=== PATIENT | male | born 1935 | race Caucasian/White ===

== ENCOUNTER 2017-09-23 20:15 | Emergency (ER) | payer MEDICARE ==
--- NOTE | 2017-09-23 22:54 | RAD ---
SINGLE VIEW OF THE CHEST: Comparison: None. History: Cough, generalized weakness. FINDINGS: Single view of the chest shows a cardiomediastinal silhouette that is upper limits of normal in size. Airspace opacity is seen along the right heart border which may represent a right middle lobe infilt rate. No pleural effusion is seen. Degenerative changes are seen in the spine and shoulders. IMPRESSION: Possible right middle lobe infiltrate. POS: [facility]
[2017-09-23 22:58] LABS: ALT (SGPT) 14 U/L (8-55); AST (SGOT) 15 U/L (5-34); Albumin 3.9 g/dL (3.4-4.8); Alkaline Phosphatase 96 U/L (40-150); Anion Gap 14 mmol/L (10-20); BUN (Urea Nitrogen) 13 mg/dL (8.4-25.7); Bilirubin, Total 0.9 mg/dL (0.2-1.2); Calc. Creatinine Clearance 0 mL/min (70-130); Carbon Dioxide 24 mmol/L (23-31); Chloride 101 mmol/L (98-107); Estimated GFR-MDRD Greater than 90; Globulin 2.9 g/dL (2.4-3.5); Glucose 120 mg/dL (83-110); Potassium 3.5 mmol/L (3.5-5.1); Protein, Total 6.8 g/dL (5.8-8.1); Sodium 135 mmol/L (136-145)
[2017-09-23 23:03] LABS: CKMB 0.3 ng/mL (0-6.6); Troponin I Less than 0.010 ng/mL (< 0.028)
[2017-09-23 23:07] LABS: Anisocytosis SLIGHT = 6-15 cells (100X) (0-5/hpf); Band 8 % (5-11); Eosinophils 3 % (0-10); Hemoglobin 11.4 g/dL (14.0-18.0); Lymphocytes 12 % (21-51); MDiff Complete? YES; Mean Corpuscular HGB CONC 32.4 g/dL (32.0-36.0); Mean Corpuscular Hemoglobin 27.2 pg (27.0-31.0); Mean Corpuscular Volume 83.9 fl (80.0-94.0); Mean Platelet Volume 11.6 fL (7.4-10.4); Monocytes 21 % (0-10); Neutrophil 56 % (42-75); Platelet Count 161 thou/uL (130-400); RBC Distribution Width 19.7 % (11.5-14.5); Red Blood Cell (RBC) Count 4.18 mill/uL (4.70-6.10); White Blood Cell (WBC) Count 5.2 thou/uL (4.8-10.8)
[2017-09-23 23:38] LABS: Bilirubin Negative (Negative); Blood, Urine Negative (Negative); Clarity CLEAR (Clear); Glucose, Urine (Dipstick) Negative (Negative); Leukocyte Negative (Negative); Nitrite Negative (Negative); Protein, Urine (Dipstick) Negative (Neg-Trace); Specific Gravity, Urine 1.018 (1.002-1.036); pH, Urine 5.5 (5.0-9.0)
--- NOTE | 2017-11-05 14:26 | EKG ---
Test Reason : Blood Pressure : / mmHG Vent. Rate : 086 BPM Atrial Rate : 089 BPM P-R Int : 000 ms QRS Dur : 080 ms QT Int : 374 ms P-R-T Axes : 000 174 198 degrees QTc Int : 447 ms Atrial fibrillation Left posterior fascicular block Inferior infarct , age undetermined Abnormal ECG Reconfirmed by LOTUS BARNES ([id number]), multimedia editor RADHA RIVERA ([id number]) on 11/05/2017 2:26:17 PM Referred By: Confirmed By:LOTUS BARNES
== END 2017-09-24 00:50 | disposition home or self-care (01) ==
LOC: ERS 20:15
DX: J18.9 Pneumonia, unspecified organism (principal); I48.91 Unspecified atrial fibrillation; E11.9 Type 2 diabetes mellitus without complications; I10 Essential (primary) hypertension; F32.9 Major depressive disorder, single episode, unspecified; Z79.899 Other long term (current) drug therapy; Z79.82 Long term (current) use of aspirin
CPT/HCPCS: 36415; 71045; 80053; 81003; 82553; 83880; 84484; 85025; 87040; 93005; 96360

== ENCOUNTER 2017-09-24 09:38 | Emergency (ER) | payer MEDICARE | END 2017-09-24 11:17 | disposition home or self-care (01) | LOC: ERS 09:38 | DX: M79.81 Nontraumatic hematoma of soft tissue (principal); I48.91 Unspecified atrial fibrillation; E11.9 Type 2 diabetes mellitus without complications; I10 Essential (primary) hypertension; F32.9 Major depressive disorder, single episode, unspecified; Z79.82 Long term (current) use of aspirin; Z79.899 Other long term (current) drug therapy | CPT/HCPCS: 99283 ==

== ENCOUNTER 2017-10-08 13:28 | Inpatient (IN) | payer MEDICARE ==
[2017-10-08] MEDS ORDERED: PHENYLEPHRINE-NS 100 MCG/ML 10 ML SYRINGE ONE (15:32)
[2017-10-08] MEDS ORDERED: Lidocaine 1% PF 5 ML VIAL ONE (15:32)
[2017-10-08] MEDS ORDERED: PROPOFOL 200 MG/20 ML VIAL ONE (15:32)
--- NOTE | 2017-10-08 15:49 | PDOC.EVN ---
Event Note - Event Note Event Note: pt is seen and examined in ER, order written and plan explained to pt, H & P will be dictated later for more details
[2017-10-08] MEDS ORDERED: Adacel (T-DAP) 0.5 ML VIAL ONE (16:36)
[2017-10-08] MEDS ORDERED: Neomycin-Polymyxin 1 ML AMP ONE (18:22)
[2017-10-08] MEDS ORDERED: Fentanyl 250 MCG/5 ML VIAL ONE (19:01)
[2017-10-08] MEDS ORDERED: Ondansetron HCl/PF 4 MG/2 ML Vial IVP PRN ×2 (20:15→20:55)
[2017-10-08] MEDS ORDERED: Promethazine HCl 25 MG/ML VIAL IM PRN (20:15)
[2017-10-08] MEDS ORDERED: Promethazine HCl 25 MG/ML VIAL SLOW IVP PRN (20:15)
[2017-10-08] MEDS ORDERED: hydrALAZINE 20 MG/ML VIAL SLOW IVP PRN (20:55)
[2017-10-08] MEDS ORDERED: Senokot 8.6 MG TAB PO PRN (20:55)
[2017-10-08] MEDS ORDERED: Temazepam 15 MG CAP PO PRN (20:55)
[2017-10-08] MEDS ORDERED: tiZANidine HCl 4 MG TAB PO PRN (20:55)
[2017-10-08] MEDS ORDERED: Mag-Al 1200 mg/1200 mg/30 ML UDCUP PO PRN (20:55)
[2017-10-08] MEDS ORDERED: Acetaminophen 325 MG TAB PO PRN (20:55)
[2017-10-08] MEDS ORDERED: Milk Of Magnesia 30 ML UDCUP PO PRN (20:55)
[2017-10-08] MEDS ORDERED: Eucerin (Mineral Oil/Petrolatum,White) 30 gm Jar TOP PRN (20:55)
[2017-10-08] MEDS ORDERED: Artificial Tears 18 DROP/0.9 ML EA EYE PRN (20:55)
[2017-10-08] MEDS ORDERED: Piperacillin/Tazobactam 3.375 GM in Sodium Chloride 0.9% 100 ML IVPB SCH (20:55)
[2017-10-08] MEDS ORDERED: Chloraseptic Spray 180 ml Bottle PO PRN (20:55)
[2017-10-08] MEDS ORDERED: Morphine 4 MG/ML VIAL SLOW IVP PRN (20:55)
[2017-10-08] MEDS ORDERED: Sodium Chloride 0.65% Nasal 44 ML BOT EA NARE PRN (20:55)
[2017-10-08] MEDS ORDERED: Loperamide HCl 2 MG CAP PO PRN (20:55)
[2017-10-08] MEDS ORDERED: Ondansetron ODT 4 MG TAB PO PRN (20:55)
[2017-10-08] MEDS ORDERED: Loratadine 10 MG TAB PO PRN (20:55)
[2017-10-08] MEDS ORDERED: Gabapentin 100 MG CAP PO SCH (21:00)
[2017-10-08] MEDS: Piperacillin/Tazobactam 3.375 GM in Sodium Chloride 0.9% 100 ML IVPB SCH ×2 (21:41→23:36)
--- NOTE | 2017-10-08 21:41 | RAD ---
LEFT HAND TWO INTRAOPERATIVE IMAGES: 10/08/2017 HISTORY: I and D. COMPARISON: None. FINDINGS: Limited assessment of the hand demonstrates diffuse soft tissue swelling of the second digit. There is prominent multilevel degenerative change, including the second, third, and fourth proximal interph alangeal joints, as well as the third distal interphalangeal joint. There is an old fracture involvi ng the fifth metacarpal. IMPRESSION: Diffuse soft tissue swelling of the index finger. POS: [facility]
[2017-10-08] MEDS: HYDROcodone/Acetaminophen 10/325 mg Tablet PO PRN (21:53)
--- NOTE | 2017-10-08 22:18 | HP ---
PRIMARY CARE PHYSICIAN: Dr. Liv Castellano. REASON FOR ADMISSION: Left hand cellulitis/abscess. HISTORY OF PRESENT ILLNESS: An 82-year-old male who came to emergency room with complaint of increasing left hand swelling and tenderness. The patient had a dog bite on Sunday, about 3 days ago. The patient reports that dog bite, after that he was having increasing left hand swelling and tenderness. The patient initially went to [facility]. Over there, he was given vancomycin and Zosyn. Subsequently, the patient was transferred to our hospital. First time he went on Sunday to [facility]. The patient reported that the dog bite was his own dog and he was with up to date in immunization. After dog bite, he had bleeding, but bleeding was stopped. First time when he went to emergency room on 10/05/2017 on Sunday, the patient had local wound care and the patient was discharged from emergency room, but after that over a couple of days, the patient had increasing swelling, tenderness, and that is why he decided to come to emergency room for evaluation. After being treated with vancomycin and Zosyn at [facility], the patient was transferred to our hospital and subsequently the patient is being admitted to Medicine Service. The patient denies any chest pain, palpitation, shortness of breath. He denies any fever or chills. He denies any UTI symptoms. He denies any constipation, diarrhea. He denies any muscle spasm. The patient also reports that he is up to date in his tetanus vaccination. The patient has leukemia and he is getting monthly chemotherapy, last chemotherapy was on 09/22/2017. On 10/05/2017, the patient was given Augmentin, but the patient did not have any improvement and as patient is immunocompromised from chemotherapy, his primary care physician requested transfer to our hospital for higher level of care. REVIEW OF SYSTEMS: The following complete review of systems was negative, unless otherwise mentioned in the HPI or below: Constitutional: Weight loss or gain, ability to conduct usual activities. Skin: Rash, itching. Eyes: Double vision, pain. ENT/Mouth: Nose bleeding, neck stiffness, pain, tenderness. Cardiovascular: Palpitations, dyspnea on exertion, orthopnea. Respiratory: Shortness of breath, wheezing, cough, hemoptysis, fever or night sweats. Gastrointestinal: Poor appetite, abdominal pain, heartburn, nausea, vomiting, constipation, or diarrhea. Genitourinary: Urgency, frequency, dysuria, nocturia. Musculoskeletal: Pain, swelling. Neurologic/Psychiatric: Anxiety, depression. Allergy/Immunologic: Skin rash, bleeding tendency. Please see my HPI for pertinent positive and negative. All other review of system reviewed and negative except as mentioned in the HPI. PAST MEDICAL HISTORY: Paroxysmal atrial fibrillation; diabetes, type 2; leukemia, on chemotherapy; hypertension; benign enlargement of prostate; gastroesophageal reflux disease; peripheral neuropathy; insomnia; chronic diastolic heart failure. 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 PAST PSYCHIATRIC HISTORY: Anxiety and depression. SOCIAL HISTORY: The patient lives at home by himself. No history of tobacco, alcohol or illicit drug abuse. He is . He lives with his daughter. FAMILY HISTORY: No strong family history of premature coronary artery disease, stroke or cancer. ALLERGY: No known drug allergy. CURRENT HOME MEDICATION: Patient does not have medication with him so unable to review but when he will bring at that time will review, See [facility] EMERGENCY ROOM COURSE: The patient was given vancomycin and Zosyn at [facility] and the patient is given tetanus toxoid in our emergency room. PHYSICAL EXAMINATION: VITAL SIGNS: On arrival, blood pressure 116/59, pulse 87, respiratory rate 17, temperature 98.3, saturation 93% on room air, weight 80.7 kilograms. GENERAL: The patient is currently alert, awake, no obvious acute distress. HEAD: Normocephalic, atraumatic. EYES: Pupils are round, reactive to light. Extraocular muscle intact. ENT: Oropharynx within normal limits. Moist mucous membranes. No oral lesion , no pharyngeal erythema, no exudate. NECK: Supple, no JVD, no thyromegaly, no carotid bruit, no jugular venous distention. LUNGS: Clear to auscultation without any rhonchi or rales. CARDIAC: S1, S2 regular. No murmur, no gallop, no rub. ABDOMEN: Soft, bowel sounds present, nontender, nondistended. No organomegaly , no mass, no suprapubic tenderness. BACK: Unremarkable, no CVA tenderness. EXTREMITIES: Upper extremity: The patient does have left hand swollen, especially first, second, and third digit with the diffuse swelling over index finger. Purulent drainage was also noted. Range of motion of the finger joints is restricted because of swelling and pain. Right upper extremity within normal limits. Lower extremity: No edema. Good peripheral pulsation. SKIN: No skin rash. HEMATOLOGICAL SYSTEM: No lymphadenopathy. PSYCHIATRIC: Normal affect. NEUROLOGIC: The patient is alert, oriented x3. Cranial nerves II-XII intact. Motor and sensation within normal limits. No focal neurological deficit noted. SIGNIFICANT LABORATORY DATA: CBC: WBC 3.4, hemoglobin 11.1, platelets 66. ESR 21. BMP: Sodium 134, potassium 4.1, chloride 98, carbon dioxide 26, BUN 11 , creatinine 0.79, glucose 102, calcium 9.4. ASSESSMENT AND PLAN: IMPRESSION: 1. Left hand cellulitis with abscess, failure of outpatient therapy. This patient has worsening of swelling, erythema, despite oral antibiotic therapy given on 10/05/2017. The patient is immunocompromised from chemotherapy as well as he has pancytopenia from chemotherapy and he has leukemia. This patient is at risk for worst outcome. At this point, the patient is given tetanus toxoid in our emergency room. The patient was treated with vancomycin and Zosyn at other emergency room. The patient will be admitted in hospital for IV antibiotic therapy. Orthopedic physician will be consulted for possible incision and drainage. We will continue with vancomycin and Zosyn and we will control his pain with morphine and Axis on a p.r.n. basis. We will monitor clinical response. 2. Paroxysmal atrial fibrillation. We will continue Cardizem CD 120 mg p.o. daily. The patient is not a good candidate for chronic anticoagulation given thrombocytopenia. Currently, rate is under control. 3. Chronic diastolic heart failure. The patient is currently euvolemic. We will continue Lasix 40 mg p.o. daily. 4. Benign enlargement of prostate. We will continue Flomax 0.4 mg p.o. daily. 5. Gastroesophageal reflux disease. We will continue Protonix 40 mg p.o. daily. 6. Peripheral neuropathy. We will continue gabapentin 300 mg p.o. daily. 7. Insomnia. Continue Restoril 30 mg p.o. at bedtime. 8. Chronic low back pain. Continue Zanaflex 4 mg p.o. q.12 hourly p.r.n. 9. Pancytopenia, likely due to chemotherapy. We will monitor CBC and we will avoid anticoagulant because of low platelet count. 10. Gastrointestinal prophylaxis. Protonix 40 mg p.o. daily. 11. Code status: The patient is FULL CODE. The patient's daughter is surrogate decision maker. Disposition plan based on clinical course. We are expecting patient's stay in hospital more than 2 midnights. Plan of care discussed with the patient in detail. We will follow up on culture result and continue antibiotic therapy and the patient may need wound care. RONALDO
[2017-10-08 23:25] VITALS: BMI 33.8
[2017-10-09] MEDS: Piperacillin/Tazobactam 3.375 GM in Sodium Chloride 0.9% 100 ML IVPB SCH ×4 (05:17→23:49)
[2017-10-09 06:06] LABS: ALT (SGPT) 8 U/L (8-55); AST (SGOT) 8 U/L (5-34); Albumin 3.2 g/dL (3.4-4.8); Alkaline Phosphatase 65 U/L (40-150); Anion Gap 10 mmol/L (10-20); BUN (Urea Nitrogen) 12 mg/dL (8.4-25.7); Bilirubin, Total 0.8 mg/dL (0.2-1.2); Calc. Creatinine Clearance 87 mL/min (70-130); Calcium 8.4 mg/dL (7.8-10.44); Carbon Dioxide 25 mmol/L (23-31); Chloride 104 mmol/L (98-107); Estimated GFR-MDRD Greater than 90; Globulin 2.6 g/dL (2.4-3.5); Glucose 109 mg/dL (83-110); Potassium 3.5 mmol/L (3.5-5.1); Protein, Total 5.8 g/dL (5.8-8.1); Sodium 135 mmol/L (136-145)
[2017-10-09] MEDS ORDERED: Dextrose 50% Abboject 50 ML SYRINGE IVP PRN (06:06)
[2017-10-09] MEDS ORDERED: Dextrose 5% in Water 1,000 ML IV PRN (06:06)
[2017-10-09] MEDS ORDERED: traMADol HCl 50 MG TAB PO SCH (06:15)
[2017-10-09] MEDS: Vancomycin HCl 1.25 GM in Sodium Chloride 0.9% 250 ML 250 ML IVPB SCH (06:17)
[2017-10-09 06:29] LABS: Anisocytosis SLIGHT = 6-15 cells (100X) (0-5/hpf); Band 4 % (5-11); Elliptocytes SLIGHT = 2-5 cells (100X) (0-1/hpf); Eosinophils 1 % (0-10); Hemoglobin 9.1 g/dL (14.0-18.0); Lymphocytes 29 % (21-51); MDiff Complete? YES; Mean Corpuscular HGB CONC 32.1 g/dL (32.0-36.0); Mean Corpuscular Hemoglobin 27.4 pg (27.0-31.0); Mean Corpuscular Volume 85.6 fl (80.0-94.0); Mean Platelet Volume 9.4 fL (7.4-10.4); Monocytes 24 % (0-10); Neutrophil 42 % (42-75); Ovalocytes SLIGHT = 2-5 cells (100X) (0-1/hpf); PLT Morphology Comment Appears Decreased; Platelet Count 52 thou/uL (130-400); RBC Distribution Width 21.4 % (11.5-14.5); Red Blood Cell (RBC) Count 3.33 mill/uL (4.70-6.10); White Blood Cell (WBC) Count 2.3 thou/uL (4.8-10.8)
[2017-10-09] MEDS ORDERED: Furosemide 40 MG TAB PO SCH (07:30)
[2017-10-09] MEDS ORDERED: Triamterene/Hydrochlorothiazide 37.5 mg/25 mg Tablet PO SCH (09:00)
[2017-10-09] MEDS: Aspirin 325 MG TAB PO SCH (09:18)
[2017-10-09] MEDS: Tamsulosin HCl 0.4 MG CAP PO SCH (09:20)
[2017-10-09] MEDS: Gabapentin 300 MG CAP PO SCH (09:20)
[2017-10-09] MEDS: Saccharomyces boulardii 250 MG CAP PO SCH (09:20)
[2017-10-09] MEDS: Potassium Chloride 10 MEQ TAB PO SCH (09:21)
[2017-10-09] MEDS: HYDROcodone/Acetaminophen 10/325 mg Tablet PO PRN ×2 (09:23→17:49)
[2017-10-09] MEDS: Triamterene/Hydrochlorothiazide 37.5 mg/25 mg Tablet PO SCH (09:24)
[2017-10-09 09:37] LABS: Bilirubin Negative (Negative); Blood, Urine Negative (Negative); Clarity CLEAR (Clear); Glucose, Urine (Dipstick) Negative (Negative); Leukocyte Negative (Negative); Nitrite Negative (Negative); Protein, Urine (Dipstick) Trace mg/dL (Neg-Trace); Specific Gravity, Urine 1.022 (1.002-1.036); pH, Urine 5.5 (5.0-9.0)
[2017-10-09 09:39] LABS: Bacteria/HPF None Seen HPF (None Seen); Hyaline Casts/LPF 0-3 HYALINE CAST LPF (0-3 Hyaline); RBC/HPF 0-3 HPF (0-3); Squamous Epithelial None Seen HPF (0-3); WBC/HPF 0-3 HPF (0-3)
[2017-10-09] MEDS: Insulin Regular 300 UNITS/3 ML VIAL SC PRN ×2 (11:59→21:19)
--- NOTE | 2017-10-09 15:40 | OP ---
DATE OF PROCEDURE: 10/08/2017 PREOPERATIVE DIAGNOSIS: Left index finger and hand infection. POSTOPERATIVE DIAGNOSIS: Cellulitis of left hand. PROCEDURE: Incision and drainage with exploration of flexor sheath of left index finger. ANESTHESIA: General. SURGEON: Jacky Mendez M.D. TOURNIQUET TIME: Twenty minutes at 250 mmHg. ESTIMATED BLOOD LOSS: 5 Ml IMPLANTS: None. DRAINS: None. SPECIMENS: Swabbed superficial and at the flexor sheath sent for Gram stain culture and sensitivity. OUTCOME: Satisfactory. INDICATIONS: The patient is an 82-year-old gentleman who is status post dog bite injury to his left hand approximately 4 days prior to this admission. The patient was seen and evaluated in the emergen cy room in [place] and started on antibiotics. Unfortunately, over the last 24 hours, the patient h as had some increasing pain and swelling within the hand and as such is now presenting to our emergen cy room and Oconsultation requested. The patient denies recent fevers or chills. For full history o f present illness and past medical history please see the H&P. After discussion with patient including the risks and benefits, we decided to proceed with exploratio n due to the extensive swelling within the left index finger to ensure that we do not have the septic flexor tenosynovitis. Informed consent has been obtained. All questions answered. PROCEDURE IN DETAIL: After the induction of general anesthesia and a timeout performed before genera l anesthesia, the patient was positioned supine on the OR table with the left arm on a hand table. N ext, a sterile prep and drape was performed in the left upper extremity. The limb was elevated and t hen tourniquet inflated to 250 mmHg. The small traumatic wound over the dorsal aspect of the thenar web space was explored and slightly opened. No purulent material was found. Through this wound and there was not extensive erythema erythema really extended more into the index finger, both dorsally a nd to some degree along the palmar surface. As such, a mid sagittal incision was made overlying the area of maximal swelling which was at the proximal phalanx. After skin was sharply incised, dissecti on was carried down bluntly and then crossing over into the extensor side of the finger. There was f ound to be serous fluid, but no purulence and certainly no abscess cavity. This dissection was dami ed down to the palmar surface as well and again with no purulence. This wound was then thoroughly ir rigated with normal saline and closed with #4-0 nylon. Next to ensure that we did not have a septic flexor tenosynovitis. An incision was made along the palmar skin crease. aAfter skin was sharply inc ised, dissection Earried down bluntly to the underlying flexor sheath. A [place] blade was used to en ter the flexor sheath and then the flexor sheath and inspected, but purulence was to be just a normal appearance of synovial or tenosynovial fluid, but no purulence and nothing that really suggested inf ection. This wound was then irrigated with bulb syringe and closed with nylon as well. At this poin t, there was felt to be no obvious abscess found. The small traumatic wound dorsally was packed open . The two and surgical incisions had been closed and, then he was dressed with a Xeroform gauze and Onesimo wrap dressing. Tourniquet was let down at completion of dressing and patient was transferred to recovery room in stable condition. There were no complications.
--- NOTE | 2017-10-09 16:24 | EKG ---
Test Reason : Blood Pressure : / mmHG Vent. Rate : 084 BPM Atrial Rate : 340 BPM P-R Int : 000 ms QRS Dur : 074 ms QT Int : 372 ms P-R-T Axes : 000 017 006 degrees QTc Int : 439 ms Atrial fibrillation Abnormal ECG When compared with ECG of 23-SEP-2017 20:40, (Unconfirmed) Left posterior fascicular block is no longer Present T wave inversion no longer evident in Lateral leads Confirmed by DR. Afshan LUNA ([id number]) on 10/09/2017 4:24:39 PM Referred By: TC Confirmed By:DR. Afshan LUNA
[2017-10-09] MEDS: Temazepam 15 MG CAP PO PRN (20:36)
[2017-10-09] MEDS ORDERED: Metoprolol Tartrate 25 MG TAB PO SCH (21:15)
--- NOTE | 2017-10-09 22:23 | PDOC.PN ---
- Subjective Encounter Start Date: 10/09/17 Encounter Start Time: 17:30 Patient seen and examined for left hand cellulitis. No new complaints. No overnight events - Objective MAR Reviewed: Yes Vital Signs & Weight: Vital Signs (12 hours) Temp Pulse Resp BP Pulse Ox 10/09/17 20:45 98.1 F 98 102/66 10/09/17 20:00 99.0 F 108 H 19 99/55 L 92 L 10/09/17 15:41 97.9 F 93 16 107/72 93 L 10/09/17 11:14 98.1 F 87 16 109/73 91 L Weight Admit Weight 179 lb 3.2 oz Weight 179 lb I&O: 10/08/17 10/09/17 10/10/17 06:59 06:59 06:59 Intake Total 472 1260 Output Total 325 475 Balance 147 785 Result Diagrams: 10/10/17 04:42 10/10/17 04:42 Additional Labs: Accuchecks 10/09/17 10/09/17 10/09/17 20:53 15:47 11:12 POC Glucose 174 H 122 H 200 H 10/09/17 06:13 POC Glucose 204 H Radiology Reviewed by me: Yes (hand XR - No gas) Phys Exam - Physical Examination Constitutional: NAD Respiratory: no wheezing, no rhonchi Cardiovascular: RRR, no rub Gastrointestinal: soft, non-tender, positive bowel sounds Musculoskeletal: no edema left hand dressing + Neurological: moves all 4 limbs Dx/Plan - Plan DVT proph w/SCDs IMPRESSION: 1. Left hand cellulitis - improving 2. HTN 3. 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 Par Afib 5. Obesity BMI 33.8 / Other issues per H&P PLAN: * Cont Cardizem * Change ASA to 81 mg due to worsening thrombocytopenia * Cont Atbx as below * AM labs * Walking program Review of Systems - Review of Systems Respiratory: negative: Cough, Dry, Shortness of Breath, Hemoptysis, SOB with Excertion, Pleuritic Pain, Sputum, Wheezing Cardiovascular: negative: chest pain, palpitations, orthopnea, paroxysmal nocturnal dyspnea, edema, light headedness, other - Medications/Allergies Allergies/Adverse Reactions: Allergies Allergy/AdvReac Type Severity Reaction Status Date / Time No Known Drug Allergies Allergy Verified 10/09/17 07:57 Medications: Current Medications Acetaminophen (Tylenol) 650 mg PO Q4H PRN PRN Reason: Headache/Fever or Pain Hydrocodone Bitart/Acetaminophen ([place] 10/325) 1 tab PO Q4H PRN PRN Reason: Moderate Pain (4-6) Last Admin: 10/09/17 17:49 Dose: 1 tab Al Hydroxide/Mg Hydroxide (Maalox) 30 ml PO Q6H PRN PRN Reason: Heartburn or Indigestion Artificial Tears (Tears Naturale) 0 drop EA EYE PRN PRN PRN Reason: Dry Eyes Aspirin (Aspirin) 325 mg PO DAILY [facility] Last Admin: 10/09/17 09:18 Dose: 325 mg Dextrose/Water (Dextrose 50%) 25 gm IVP PRN PRN PRN Reason: HYPOGLYCEMIA PROTOCOL Diltiazem HCl (Cardizem Cd) 120 mg PO DAILY [facility] Last Admin: 10/09/17 09:24 Dose: Not Given Furosemide (Lasix) 40 mg PO DAILY-[facility] Gabapentin (Neurontin) 300 mg PO DAILY [facility] Last Admin: 10/09/17 09:20 Dose: 300 mg Glucagon (Glucagon) 1 mg IM PRN PRN PRN Reason: HYPOGLYCEMIA PROTOCOL Guaifenesin (Robitussin Sf) 200 mg PO Q4H PRN PRN Reason: Cough Hydralazine HCl (Apresoline) 10 mg SLOW IVP Q4H PRN PRN Reason: Systolic BP > 180 Piperacillin Sod/Tazobactam (Sod 3.375 gm/ Sodium Chloride) 100 mls @ 200 mls/ hr IVPB Q6HR [facility] Last Admin: 10/09/17 17:49 Dose: 100 mls Vancomycin HCl 1.25 gm/ Sodium (Chloride) 250 mls @ 166.667 mls/hr IVPB 0600 [facility] Last Admin: 10/09/17 06:17 Dose: 250 mls Dextrose/Water (D5w) 1,000 mls @ 0 mls/hr IV INF PRN; As Directed PRN Reason: HYPOGLYCEMIA PROTOCOL Insulin Human Regular (Humulin R) 0 units SC .MILD SLIDING PRN; Protocol PRN Reason: MILD SLIDING SCALE Last Admin: 10/09/17 21:19 Dose: 2 unit Loperamide HCl (Imodium) 2 mg PO PRN PRN PRN Reason: Diarrhea/Loose Stools Loratadine (Claritin) 10 mg PO DAILYPRN PRN PRN Reason: Sinus Symptoms Magnesium Hydroxide (Milk Of Magnesium) 30 ml PO DAILYPRN PRN PRN Reason: Constipation Metoprolol Succinate (Toprol Xl) 25 mg PO DAILY [facility] Last Admin: 10/09/17 09:24 Dose: Not Given Metoprolol Tartrate (Lopressor) 12.5 mg PO NOW [facility] Stop: 10/09/17 23:00 Last Admin: 10/09/17 21:18 Dose: 12.5 mg Mineral Oil/White Petrolatum (Eucerin Cream) 0 gm TOP BIDPRN PRN PRN Reason: Dry Skin Miscellaneous Medication (Pharmacy To Dose) 1 each IVPB ONE PRN PRN Reason: Pharmacy to dose Stop: 10/18/17 20:56 Morphine Sulfate (Morphine) 4 mg SLOW IVP Q4H PRN PRN Reason: Moderate to Severe Pain (4-10) Last Admin: 10/09/17 10:16 Dose: 4 mg Ondansetron HCl (Zofran Odt) 4 mg PO Q6H PRN PRN Reason: Nausea/Vomiting Ondansetron HCl (Zofran) 4 mg IVP Q6H PRN PRN Reason: Nausea/Vomiting Pantoprazole Sodium (Protonix) 40 mg PO DAILY [facility] Last Admin: 10/09/17 09:21 Dose: 40 mg Phenol (Chloraseptic [place] 180 Ml Bot) 0 ml PO PRN PRN PRN Reason: Sore Throat Potassium Chloride (Klor-Con 10) 10 meq PO QAM-[facility] Last Admin: 10/09/17 09:21 Dose: 10 meq Saccharomyces Boulardii (Florastor) 250 mg PO DAILY [facility] Last Admin: 10/09/17 09:20 Dose: 250 mg Senna (Senokot) 2 tab PO HSPRN PRN PRN Reason: Constipation Sodium Chloride ([place] Nasal [place] 0.65%) 0 ml EA NARE QIDPRN PRN PRN Reason: Nasal Congestion Tamsulosin HCl (Flomax) 0.4 mg PO DAILY [facility] Last Admin: 10/09/17 09:20 Dose: 0.4 mg Temazepam (Restoril) 15 mg PO HS PRN PRN Reason: Insomnia Last Admin: 10/09/17 20:36 Dose: 15 mg Tizanidine HCl (Zanaflex) 4 mg PO BID PRN PRN Reason: Muscle Spasm Triamterene/HCTZ (Maxzide-25) 1 tab PO DAILY [facility] Last Admin: 10/09/17 09:24 Dose: Not Given
[2017-10-10] MEDS: Piperacillin/Tazobactam 3.375 GM in Sodium Chloride 0.9% 100 ML IVPB SCH ×4 (05:05→23:38)
[2017-10-10 05:47] LABS: Vancomycin, Trough 6.1 ug/mL
[2017-10-10 05:56] LABS: ALT (SGPT) Less than 7 U/L (8-55); AST (SGOT) 10 U/L (5-34); Albumin 3.2 g/dL (3.4-4.8); Alkaline Phosphatase 70 U/L (40-150); Anion Gap 12 mmol/L (10-20); BUN (Urea Nitrogen) 8 mg/dL (8.4-25.7); Bilirubin, Total 1.2 mg/dL (0.2-1.2); Calc. Creatinine Clearance 95 mL/min (70-130); Calcium 8.4 mg/dL (7.8-10.44); Carbon Dioxide 23 mmol/L (23-31); Chloride 104 mmol/L (98-107); Estimated GFR-MDRD Greater than 90; Globulin 2.7 g/dL (2.4-3.5); Glucose 101 mg/dL (83-110); Magnesium 1.9 mg/dL (1.6-2.6); Potassium 3.7 mmol/L (3.5-5.1); Protein, Total 5.9 g/dL (5.8-8.1); Sodium 135 mmol/L (136-145)
[2017-10-10] MEDS: Vancomycin HCl 1.25 GM in Sodium Chloride 0.9% 250 ML 250 ML IVPB SCH (06:11)
[2017-10-10] MEDS ORDERED: Vancomycin HCl 1 GM in Premix Bag 1 BAG IVPB SCH (06:15)
[2017-10-10] MEDS: Furosemide 40 MG TAB PO SCH ×2 (06:51→08:13)
[2017-10-10 06:58] LABS: Band 4 % (5-11); Eosinophils 4 % (0-10); Hemoglobin 9.1 g/dL (14.0-18.0); Lymphocytes 25 % (21-51); MDiff Complete? YES; Mean Corpuscular HGB CONC 31.6 g/dL (32.0-36.0); Mean Corpuscular Hemoglobin 27.1 pg (27.0-31.0); Mean Corpuscular Volume 85.6 fl (80.0-94.0); Mean Platelet Volume 11.7 fL (7.4-10.4); Monocytes 28 % (0-10); Neutrophil 39 % (42-75); PLT Morphology Comment Appears Decreased; Platelet Count 47 thou/uL (130-400); RBC Distribution Width 21.6 % (11.5-14.5); Red Blood Cell (RBC) Count 3.36 mill/uL (4.70-6.10); White Blood Cell (WBC) Count 2.9 thou/uL (4.8-10.8)
[2017-10-10] MEDS ORDERED: Furosemide 40 MG TAB PO SCH (07:30)
[2017-10-10] MEDS: Potassium Chloride 10 MEQ TAB PO SCH (08:11)
[2017-10-10] MEDS: Tamsulosin HCl 0.4 MG CAP PO SCH (08:11)
[2017-10-10] MEDS: Aspirin 325 MG TAB PO SCH (08:11)
[2017-10-10] MEDS: Saccharomyces boulardii 250 MG CAP PO SCH (08:11)
[2017-10-10] MEDS: Gabapentin 300 MG CAP PO SCH ×2 (08:11→20:43)
[2017-10-10] MEDS: Triamterene/Hydrochlorothiazide 37.5 mg/25 mg Tablet PO SCH (08:12)
[2017-10-10] MEDS ORDERED: HYDROcodone/Acetaminophen 5/325 mg Tablet PO PRN (09:07)
[2017-10-10] MEDS: Vancomycin HCl 1 GM in Premix Bag 1 BAG IVPB SCH (17:21)
[2017-10-10] MEDS: Insulin Regular 300 UNITS/3 ML VIAL SC PRN (20:50)
--- NOTE | 2017-10-10 21:06 | PDOC.PN ---
- Subjective Encounter Start Date: 10/10/17 Encounter Start Time: 13:00 Patient seen and examined for left hand cellulitis. No new complaints. No overnight events - Objective MAR Reviewed: Yes Vital Signs & Weight: Vital Signs (12 hours) Temp Pulse Resp BP Pulse Ox 10/10/17 16:00 98.9 F 92 18 100/64 94 L 10/10/17 12:42 98.4 F 82 18 114/70 99 Weight Admit Weight 179 lb 3.2 oz Weight 179 lb I&O: 10/09/17 10/10/17 10/11/17 06:59 06:59 06:59 Intake Total 472 1710 1160 Output Total 325 475 925 Balance 147 1235 235 Result Diagrams: 10/11/17 05:03 10/11/17 05:03 Additional Labs: Accuchecks 10/10/17 10/10/17 10/10/17 16:07 11:05 05:55 POC Glucose 127 H 152 H 114 H 10/09/17 20:53 POC Glucose 174 H Phys Exam - Physical Examination Constitutional: NAD Respiratory: no wheezing, no rhonchi Cardiovascular: RRR, no rub Gastrointestinal: soft, non-tender, positive bowel sounds left hand dressing + Neurological: moves all 4 limbs Dx/Plan - Plan DVT proph w/SCDs IMPRESSION: 1. Left hand cellulitis 2. HTN 3. 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 Par Afib 5. Obesity BMI 33.8 / Other issues per H&P PLAN: * Cont current meds as below * Cont Atbx as below * AM labs * Walking program * Wound care Review of Systems - Review of Systems Respiratory: negative: Cough, Dry, Shortness of Breath, Hemoptysis, SOB with Excertion, Pleuritic Pain, Sputum, Wheezing Cardiovascular: negative: chest pain, palpitations, orthopnea, paroxysmal nocturnal dyspnea, edema, light headedness, other - Medications/Allergies Allergies/Adverse Reactions: Allergies Allergy/AdvReac Type Severity Reaction Status Date / Time No Known Drug Allergies Allergy Verified 10/09/17 07:57 Medications: Current Medications Acetaminophen (Tylenol) 650 mg PO Q4H PRN PRN Reason: Headache/Fever or Pain Hydrocodone Bitart/Acetaminophen ([place] 10/325) 1 tab PO Q4H PRN PRN Reason: Moderate Pain (4-6) Last Admin: 10/09/17 17:49 Dose: 1 tab Hydrocodone Bitart/Acetaminophen ([place] 5/325) 1 tab PO Q4H PRN PRN Reason: Moderate Pain (4-6) Al Hydroxide/Mg Hydroxide (Maalox) 30 ml PO Q6H PRN PRN Reason: Heartburn or Indigestion Artificial Tears (Tears Naturale) 0 drop EA EYE PRN PRN PRN Reason: Dry Eyes Aspirin (Ecotrin) 81 mg PO DAILY [facility] Dextrose/Water (Dextrose 50%) 25 gm IVP PRN PRN PRN Reason: HYPOGLYCEMIA PROTOCOL Diltiazem HCl (Cardizem Cd) 120 mg PO DAILY [facility] Last Admin: 10/10/17 08:12 Dose: 120 mg Furosemide (Lasix) 40 mg PO DAILY-[facility] Last Admin: 10/10/17 08:13 Dose: 40 mg Gabapentin (Neurontin) 300 mg PO HS [facility] Last Admin: 10/10/17 20:43 Dose: 300 mg Glucagon (Glucagon) 1 mg IM PRN PRN PRN Reason: HYPOGLYCEMIA PROTOCOL Guaifenesin (Robitussin Sf) 200 mg PO Q4H PRN PRN Reason: Cough Hydralazine HCl (Apresoline) 10 mg SLOW IVP Q4H PRN PRN Reason: Systolic BP > 180 Piperacillin Sod/Tazobactam (Sod 3.375 gm/ Sodium Chloride) 100 mls @ 200 mls/ hr IVPB Q6HR [facility] Last Admin: 10/10/17 17:20 Dose: 100 mls Dextrose/Water (D5w) 1,000 mls @ 0 mls/hr IV INF PRN; As Directed PRN Reason: HYPOGLYCEMIA PROTOCOL Vancomycin HCl 1 gm/ Device 200 mls @ 133.333 mls/hr IVPB 0600,1800 [facility] Last Admin: 10/10/17 17:21 Dose: 200 mls Insulin Human Regular (Humulin R) 0 units SC .MILD SLIDING PRN; Protocol PRN Reason: MILD SLIDING SCALE Last Admin: 10/10/17 20:50 Dose: 3 unit Loperamide HCl (Imodium) 2 mg PO PRN PRN PRN Reason: Diarrhea/Loose Stools Loratadine (Claritin) 10 mg PO DAILYPRN PRN PRN Reason: Sinus Symptoms Magnesium Hydroxide (Milk Of Magnesium) 30 ml PO DAILYPRN PRN PRN Reason: Constipation Last Admin: 10/10/17 05:38 Dose: 30 ml Metoprolol Succinate (Toprol Xl) 25 mg PO DAILY [facility] Last Admin: 10/10/17 08:13 Dose: 25 mg Mineral Oil/White Petrolatum (Eucerin Cream) 0 gm TOP BIDPRN PRN PRN Reason: Dry Skin Miscellaneous Medication (Pharmacy To Dose) 1 each IVPB ONE PRN PRN Reason: Pharmacy to dose Stop: 10/18/17 20:56 Ondansetron HCl (Zofran Odt) 4 mg PO Q6H PRN PRN Reason: Nausea/Vomiting Ondansetron HCl (Zofran) 4 mg IVP Q6H PRN PRN Reason: Nausea/Vomiting Pantoprazole Sodium (Protonix) 40 mg PO DAILY [facility] Last Admin: 10/10/17 08:11 Dose: 40 mg Phenol (Chloraseptic [place] 180 Ml Bot) 0 ml PO PRN PRN PRN Reason: Sore Throat Potassium Chloride (Klor-Con 10) 10 meq PO QAM-[facility] Last Admin: 10/10/17 08:11 Dose: 10 meq Saccharomyces Boulardii (Florastor) 250 mg PO DAILY [facility] Last Admin: 10/10/17 08:11 Dose: 250 mg Senna (Senokot) 2 tab PO HSPRN PRN PRN Reason: Constipation Sodium Chloride ([place] Nasal [place] 0.65%) 0 ml EA NARE QIDPRN PRN PRN Reason: Nasal Congestion Sodium Chloride (Flush - Normal Saline) 10 ml IVF Q12HR [facility] Last Admin: 10/10/17 20:44 Dose: 10 ml Sodium Chloride (Flush - Normal Saline) 10 ml IVF PRN PRN PRN Reason: Saline Flush Tamsulosin HCl (Flomax) 0.4 mg PO DAILY [facility] Last Admin: 10/10/17 08:11 Dose: 0.4 mg Temazepam (Restoril) 15 mg PO HS PRN PRN Reason: Insomnia Last Admin: 10/09/17 20:36 Dose: 15 mg Tizanidine HCl (Zanaflex) 4 mg PO BID PRN PRN Reason: Muscle Spasm Triamterene/HCTZ (Maxzide-25) 1 tab PO DAILY [facility] Last Admin: 10/10/17 08:12 Dose: 1 tab
[2017-10-10] MEDS: Temazepam 15 MG CAP PO PRN (22:24)
[2017-10-11] MEDS: Piperacillin/Tazobactam 3.375 GM in Sodium Chloride 0.9% 100 ML IVPB SCH ×3 (05:17→17:53)
[2017-10-11 05:35] LABS: Anion Gap 8 mmol/L (10-20); BUN (Urea Nitrogen) 10 mg/dL (8.4-25.7); Calc. Creatinine Clearance 96 mL/min (70-130); Calcium 8.4 mg/dL (7.8-10.44); Carbon Dioxide 30 mmol/L (23-31); Chloride 98 mmol/L (98-107); Estimated GFR-MDRD Greater than 90; Glucose 107 mg/dL (83-110); Potassium 3.2 mmol/L (3.5-5.1); Sodium 133 mmol/L (136-145)
[2017-10-11 05:50] LABS: Band 5 % (5-11); Eosinophils 3 % (0-10); Hemoglobin 8.7 g/dL (14.0-18.0); Lymphocytes 16 % (21-51); MDiff Complete? YES; Mean Corpuscular HGB CONC 32.1 g/dL (32.0-36.0); Mean Corpuscular Hemoglobin 27.1 pg (27.0-31.0); Mean Corpuscular Volume 84.4 fl (80.0-94.0); Mean Platelet Volume 7.9 fL (7.4-10.4); Metamyelocyte 3 % (0-0); Monocytes 15 % (0-10); Neutrophil 57 % (42-75); Nucleated RBC 1 % (0); PLT Morphology Comment Appears Decreased; Platelet Count 32 thou/uL (130-400); White Blood Cell (WBC) Count 3.3 thou/uL (4.8-10.8)
[2017-10-11] MEDS: Vancomycin HCl 1 GM in Premix Bag 1 BAG IVPB SCH ×2 (06:17→17:53)
[2017-10-11] MEDS: Furosemide 40 MG TAB PO SCH (06:42)
[2017-10-11] MEDS: Saccharomyces boulardii 250 MG CAP PO SCH (08:39)
[2017-10-11] MEDS: Triamterene/Hydrochlorothiazide 37.5 mg/25 mg Tablet PO SCH (08:39)
[2017-10-11] MEDS: Tamsulosin HCl 0.4 MG CAP PO SCH (08:39)
[2017-10-11] MEDS: Potassium Chloride 10 MEQ TAB PO SCH ×3 (08:39→16:36)
[2017-10-11] MEDS ORDERED: Aspirin 81 mg Enteric Coated Tablet PO SCH (09:00)
[2017-10-11] MEDS ORDERED: Polyethylene Glycol 3350 17 GM Packet PO PRN (11:08)
--- NOTE | 2017-10-11 14:00 | CON ---
DATE OF CONSULTATION: 10/11/2017 REASON FOR CONSULTATION: Dog bite. 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 The dog who bit him is his own dog, it is vaccinated. They decided to euthanized the dog anyways because of the behavioral problems with the animal and since then, the patient has developed worsening inflammatory changes. He was admitted, had I&D by Dr. Mendez, no evidence of tenosynovitis was identified. No evidence of bone involvement. He is currently on vancomycin and Zosyn, moderate pain, but no headaches, visual symptoms, sore throat, aphasia, dysphagia, no dyspnea, cough or sputum production or chest pain, no back pain. No abdominal pain, diarrhea, no genitourinary symptoms. 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 He has had recurrent episodes of epigastric abdominal pain for the past few weeks, and has not yet been worked up. Last colonoscopy 10 years ago was within normal limits. 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 SOCIAL HISTORY: Lives in [place], has nearby relatives. Never a smoker, no drug use. 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 . FAMILY HISTORY: Noncontributory. ALLERGIES: None. CURRENT MEDICATIONS: Zosyn, vancomycin, Tylenol, [place], Maalox, Ecotrin, Cardizem, Lasix, Neurontin, glucagon, Robitussin, Humulin R, Imodium, Claritin, Toprol-XL, Zofran, pantoprazole, vancomycin. PHYSICAL EXAMINATION: VITAL SIGNS: Temperature has been normal and the other vital signs are within normal limits. SKIN: Shows the wound area with a punctured area when he just came in, fresh blood at the base. A little maceration at the edges, right over the second MPJ skin site, left hand. There is another area, that is where the surgeon went in and did an exploration both in the medial aspect of the second finger left hand as well as the palmar aspect to explore the tendon. No lymphadenopathy. Alopecia noted. HEENT: Ocular movements conjugate. Oral cavity with no teeth. NECK: Supple, no jugular vein distention, no thyromegaly. LUNGS: With symmetric clear breath sounds. HEART: S1, S2, regular rate. No S3, S4. ABDOMEN: Soft, not distended or tender. No ascites. No bladder distention. EXTREMITIES: No joint inflammatory activity outside the involved area. He moves the extremities with limitations imposed by the left hand inflammatory process. NEUROLOGIC: Cognitive function appears to be intact. LABORATORY DATA: White cell count is 2.3, up to 3.3, hemoglobin 8.7, and platelets 32,000. Sodium 133, creatinine 0.67. Liver profile normal. CRP is 3.10, albumin 3.2. Urinalysis within normal limits. Microbiology with negative blood cultures x2 sets. There are samples from the hand and the Gram stain showed no organisms seen, thus far at 3 days, no growth in the cultures. In the second sample showed rare gram positive cocci in pairs. ASSESSMENT: History of some form of leukemia on chemotherapy as well as type 2 diabetes mellitus admitted after inflammatory process worsening following dog bite, gram positive cocci in pairs and evaluated in the Gram stain, but cultures thus far negative. Dog bites can be associated with P. multocida as well as the usual GNR and GPC organisms. He is currently on Zosyn and vancomycin. We will continue the current regimen. Waiting on final results of cultures. Eventually hopefully transition to oral antimicrobial therapy according to the results. If cultures remain negative, then we will have to devise a broader spectrum coverage, combination of minocycline with Augmentin could be a good choice in the absence of evidence to suggest a bone or joint or tendon involvement. Will have to continue monitoring BC results since + BC may change the regimen chosen. MTDD
--- NOTE | 2017-10-11 16:25 | PDOC.PN ---
- Subjective Encounter Start Date: 10/11/17 Encounter Start Time: 11:30 Patient seen and examined for cellulitis. No new complaints. Pain controlled. Had BM. No overnight events - Objective MAR Reviewed: Yes Vital Signs & Weight: Vital Signs (12 hours) Temp Pulse Resp BP Pulse Ox 10/11/17 11:22 98.2 F 80 18 105/68 96 10/11/17 08:00 98.1 F 88 20 118/70 95 10/11/17 06:42 107/73 Weight Admit Weight 179 lb 3.2 oz Weight 179 lb I&O: 10/10/17 10/11/17 10/12/17 06:59 06:59 06:59 Intake Total 1710 2180 Output Total 475 1825 Balance 1235 355 Result Diagrams: 10/11/17 05:03 10/11/17 05:03 Additional Labs: Accuchecks 10/11/17 10/11/17 10/10/17 11:04 05:35 20:51 POC Glucose 162 H 116 H 204 H Phys Exam - Physical Examination Constitutional: NAD Respiratory: no wheezing, no rhonchi Cardiovascular: RRR, no rub Gastrointestinal: soft, non-tender, positive bowel sounds Musculoskeletal: no edema Left hand dressing + Neurological: moves all 4 limbs Psychiatric: A&O x 3 Dx/Plan - Plan DVT proph w/SCDs IMPRESSION: 1. Left hand cellulitis due to Dog bite 2. HTN - BP on lower side 3. 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 Par Afib 5. Hypokalemia / Obesity BMI 33.8 / Other issues per H&P PLAN: * Hold Triamterene/HCTZ * Replace Potassium * Cont current meds as below * Cont Atbx as below * AM labs * Walking program * Wound care * Await ID input * Change ASA to every other day due to thrombocytopenia Review of Systems - Review of Systems Respiratory: negative: Cough, Dry, Shortness of Breath, Hemoptysis, SOB with Excertion, Pleuritic Pain, Sputum, Wheezing Cardiovascular: negative: chest pain, palpitations, orthopnea, paroxysmal nocturnal dyspnea, edema, light headedness, other Gastrointestinal: negative: Nausea, Vomiting, Abdominal Pain, Diarrhea, Constipation, Melena, Hematochezia, Other - Medications/Allergies Allergies/Adverse Reactions: Allergies Allergy/AdvReac Type Severity Reaction Status Date / Time No Known Drug Allergies Allergy Verified 10/09/17 07:57 Medications: Current Medications Acetaminophen (Tylenol) 650 mg PO Q4H PRN PRN Reason: Headache/Fever or Pain Hydrocodone Bitart/Acetaminophen ([place] 10/325) 1 tab PO Q4H PRN PRN Reason: Moderate Pain (4-6) Last Admin: 10/09/17 17:49 Dose: 1 tab Hydrocodone Bitart/Acetaminophen ([place] 5/325) 1 tab PO Q4H PRN PRN Reason: Moderate Pain (4-6) Al Hydroxide/Mg Hydroxide (Maalox) 30 ml PO Q6H PRN PRN Reason: Heartburn or Indigestion Artificial Tears (Tears Naturale) 0 drop EA EYE PRN PRN PRN Reason: Dry Eyes Aspirin (Ecotrin) 81 mg PO ASDIR [facility] Dextrose/Water (Dextrose 50%) 25 gm IVP PRN PRN PRN Reason: HYPOGLYCEMIA PROTOCOL Diltiazem HCl (Cardizem Cd) 120 mg PO DAILY [facility] Last Admin: 10/11/17 08:39 Dose: 120 mg Furosemide (Lasix) 40 mg PO DAILY-AC [facility] Last Admin: 10/11/17 06:42 Dose: Not Given Gabapentin (Neurontin) 300 mg PO [facility] Last Admin: 10/10/17 20:43 Dose: 300 mg Glucagon (Glucagon) 1 mg IM PRN PRN PRN Reason: HYPOGLYCEMIA PROTOCOL Guaifenesin (Robitussin Sf) 200 mg PO Q4H PRN PRN Reason: Cough Hydralazine HCl (Apresoline) 10 mg SLOW IVP Q4H PRN PRN Reason: Systolic BP > 180 Piperacillin Sod/Tazobactam (Sod 3.375 gm/ Sodium Chloride) 100 mls @ 200 mls/ hr IVPB Q6HR [facility] Last Admin: 10/11/17 12:00 Dose: 100 mls Dextrose/Water (D5w) 1,000 mls @ 0 mls/hr IV INF PRN; As Directed PRN Reason: HYPOGLYCEMIA PROTOCOL Vancomycin HCl 1 gm/ Device 200 mls @ 133.333 mls/hr IVPB 0600,1800 [facility] Last Admin: 10/11/17 06:17 Dose: 200 mls Insulin Human Regular (Humulin R) 0 units SC .MILD SLIDING PRN; Protocol PRN Reason: MILD SLIDING SCALE Last Admin: 10/10/17 20:50 Dose: 3 unit Loperamide HCl (Imodium) 2 mg PO PRN PRN PRN Reason: Diarrhea/Loose Stools Loratadine (Claritin) 10 mg PO DAILYPRN PRN PRN Reason: Sinus Symptoms Magnesium Hydroxide (Milk Of Magnesium) 30 ml PO DAILYPRN PRN PRN Reason: Constipation Last Admin: 10/10/17 05:38 Dose: 30 ml Metoprolol Succinate (Toprol Xl) 25 mg PO DAILY [facility] Last Admin: 10/11/17 08:40 Dose: 25 mg Mineral Oil/White Petrolatum (Eucerin Cream) 0 gm TOP BIDPRN PRN PRN Reason: Dry Skin Miscellaneous Medication (Pharmacy To Dose) 1 each IVPB ONE PRN PRN Reason: Pharmacy to dose Stop: 10/18/17 20:56 Ondansetron HCl (Zofran Odt) 4 mg PO Q6H PRN PRN Reason: Nausea/Vomiting Ondansetron HCl (Zofran) 4 mg IVP Q6H PRN PRN Reason: Nausea/Vomiting Pantoprazole Sodium (Protonix) 40 mg PO DAILY [facility] Last Admin: 10/11/17 08:39 Dose: 40 mg Phenol (Chloraseptic [place] 180 Ml Bot) 0 ml PO PRN PRN PRN Reason: Sore Throat Polyethylene Glycol (Miralax) 17 gm PO DAILY PRN PRN Reason: Constipation Potassium Chloride (Klor-[place] 10) 20 meq PO TID[facility] Stop: 10/11/17 23:59 Last Admin: 10/11/17 12:00 Dose: 20 meq Saccharomyces Boulardii (Florastor) 250 mg PO DAILY [facility] Last Admin: 10/11/17 08:39 Dose: 250 mg Senna (Senokot) 2 tab PO HSPRN PRN PRN Reason: Constipation Senna/Docusate Sodium (Senokot S) 1 tab PO BID [facility] Sodium Chloride ([place] Nasal [place] 0.65%) 0 ml EA NARE QIDPRN PRN PRN Reason: Nasal Congestion Sodium Chloride (Flush - Normal Saline) 10 ml IVF Q12HR [facility] Last Admin: 10/11/17 08:40 Dose: 10 ml Sodium Chloride (Flush - Normal Saline) 10 ml IVF PRN PRN PRN Reason: Saline Flush Tamsulosin HCl (Flomax) 0.4 mg PO DAILY [facility] Last Admin: 10/11/17 08:39 Dose: 0.4 mg Temazepam (Restoril) 15 mg PO HS PRN PRN Reason: Insomnia Last Admin: 10/10/17 22:24 Dose: 15 mg Tizanidine HCl (Zanaflex) 4 mg PO BID PRN PRN Reason: Muscle Spasm Triamterene/HCTZ (Maxzide-25) 1 tab PO DAILY [facility] Last Admin: 10/11/17 08:39 Dose: 1 tab
[2017-10-11] MEDS: Diabetic Tussin 200 MG/10 ML UDCUP PO PRN ×2 (16:36→20:18)
[2017-10-11 17:53] LABS: Vancomycin, Trough 12.8 ug/mL
[2017-10-11] MEDS: Senokot S 8.6-50 MG TAB PO SCH (20:18)
[2017-10-11] MEDS: Gabapentin 300 MG CAP PO SCH (20:19)
[2017-10-11] MEDS: Temazepam 15 MG CAP PO PRN (21:59)
[2017-10-12] MEDS: Piperacillin/Tazobactam 3.375 GM in Sodium Chloride 0.9% 100 ML IVPB SCH ×4 (00:53→17:37)
[2017-10-12] MEDS: Diabetic Tussin 200 MG/10 ML UDCUP PO PRN ×3 (01:18→15:12)
[2017-10-12 05:12] LABS: Anion Gap 8 mmol/L (10-20); BUN (Urea Nitrogen) 9 mg/dL (8.4-25.7); Calc. Creatinine Clearance 97 mL/min (70-130); Calcium 8.4 mg/dL (7.8-10.44); Carbon Dioxide 30 mmol/L (23-31); Chloride 100 mmol/L (98-107); Estimated GFR-MDRD Greater than 90; Glucose 108 mg/dL (83-110); Magnesium 1.9 mg/dL (1.6-2.6); Potassium 3.8 mmol/L (3.5-5.1); Sodium 134 mmol/L (136-145)
[2017-10-12 05:33] LABS: Anisocytosis MODERATE=16-30 cells (100X) (0-5/hpf); Band 1 % (5-11); Eosinophils 1 % (0-10); Hemoglobin 8.2 g/dL (14.0-18.0); Lymphocytes 20 % (21-51); MDiff Complete? YES; Mean Corpuscular Volume 84.3 fl (80.0-94.0); Mean Platelet Volume 6.9 fL (7.4-10.4); Monocytes 13 % (0-10); Neutrophil 62 % (42-75); PLT Morphology Comment Appears Decreased; Platelet Count 44 thou/uL (130-400); Polychromasia SLIGHT = 2-3 cells (100X) (0-2/hpf); RBC Distribution Width 20.8 % (11.5-14.5); Reactive Lymphocytes 3 % (0-10); Red Blood Cell (RBC) Count 3.04 mill/uL (4.70-6.10); White Blood Cell (WBC) Count 2.9 thou/uL (4.8-10.8)
[2017-10-12] MEDS: Vancomycin HCl 1.25 GM in Sodium Chloride 0.9% 250 ML 250 ML IVPB SCH ×2 (05:54→17:39)
[2017-10-12] MEDS: Furosemide 40 MG TAB PO SCH (08:41)
[2017-10-12] MEDS: Saccharomyces boulardii 250 MG CAP PO SCH (08:41)
[2017-10-12] MEDS: Senokot S 8.6-50 MG TAB PO SCH ×2 (08:42→22:11)
[2017-10-12] MEDS: Tamsulosin HCl 0.4 MG CAP PO SCH (08:42)
--- NOTE | 2017-10-12 16:13 | PRG ---
DATE OF SERVICE: 10/12/2017 SUBJECTIVE: Feeling about the same, not much pain or less pain in the left hand. No diarrhea. OBJECTIVE: VITAL SIGNS: Normal except for some slight hypotension. GENERAL: No distress, oriented, follows commands, pleasant. LUNGS: Clear. HEART: S1, S2, regular rate. ABDOMEN: Soft. EXTREMITIES: Left hand dressed. He has better movements in the left hand. LABORATORY DATA: His white cell count is 2.9, hemoglobin 8.2, platelets 44,000. Sodium 134, creatin ine 0.66. Microbiology thus far we still have negative cultures from the left hand. ASSESSMENT AND DISCUSSION: Some form of leukemia, possibly CLL on treatment, who now presents with d og bite and superficial infection. Cultures are pending. 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 Other possibilities also discussed before. Continue current regimen. The intention i s to eventually switch to a combination of Augmentin and Cipro if the cultures are negative. If they are positive, then adjust according to the pathogen identified.
[2017-10-12] MEDS: Benzonatate 100 MG CAP PO PRN (19:54)
--- NOTE | 2017-10-12 21:34 | PDOC.PN ---
- Subjective Encounter Start Date: 10/12/17 Encounter Start Time: 14:00 Patient seen and examined for cellulitis. Pain controlled. Chronic cough. No overnight events - Objective MAR Reviewed: Yes Vital Signs & Weight: Vital Signs (12 hours) Temp Pulse Resp BP Pulse Ox 10/12/17 20:14 98.4 F 86 16 10/12/17 19:55 98.4 F 86 16 116/84 96 10/12/17 15:18 98.1 F 74 18 101/63 99 10/12/17 11:20 98.1 F 80 18 95/59 L 99 Weight Admit Weight 179 lb 3.2 oz Weight 179 lb I&O: 10/11/17 10/12/17 10/13/17 06:59 06:59 06:59 Intake Total 2180 1100 960 Output Total 1825 950 700 Balance 355 150 260 Result Diagrams: 10/12/17 04:46 10/12/17 04:46 Additional Labs: Accuchecks 10/12/17 10/12/17 15:19 11:21 POC Glucose 136 H 152 H Phys Exam - Physical Examination Constitutional: NAD Respiratory: no wheezing, no rhonchi Cardiovascular: RRR, no rub Gastrointestinal: soft, non-tender, positive bowel sounds Musculoskeletal: no edema left hand dressing + Neurological: moves all 4 limbs Dx/Plan - Plan DVT proph w/SCDs IMPRESSION: 1. Left hand cellulitis due to Dog bite 2. HTN 3. 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 Par Afib 5. Hypokalemia / Obesity BMI 33.8 / Other issues per H&P PLAN: * Triamterene/HCTZ on hold due to BP on lower side * Add Mucinex * Cont current meds as below * Cont Atbx * Wound care * Await final culture * Cont ASA to every other day due to thrombocytopenia Review of Systems - Review of Systems Respiratory: negative: Cough, Dry, Shortness of Breath, Hemoptysis, SOB with Excertion, Pleuritic Pain, Sputum, Wheezing Cardiovascular: negative: chest pain, palpitations, orthopnea, paroxysmal nocturnal dyspnea, edema, light headedness, other - Medications/Allergies Allergies/Adverse Reactions: Allergies Allergy/AdvReac Type Severity Reaction Status Date / Time No Known Drug Allergies Allergy Verified 10/09/17 07:57 Medications: Current Medications Acetaminophen (Tylenol) 650 mg PO Q4H PRN PRN Reason: Headache/Fever or Pain Hydrocodone Bitart/Acetaminophen ([place] 10/325) 1 tab PO Q4H PRN PRN Reason: Moderate Pain (4-6) Last Admin: 10/09/17 17:49 Dose: 1 tab Hydrocodone Bitart/Acetaminophen ([place] 5/325) 1 tab PO Q4H PRN PRN Reason: Moderate Pain (4-6) Al Hydroxide/Mg Hydroxide (Maalox) 30 ml PO Q6H PRN PRN Reason: Heartburn or Indigestion Artificial Tears (Tears [place]atur[place]) 0 drop EA EYE PRN PRN PRN Reason: Dry Eyes Aspirin (Ecotrin) 81 mg PO Q2D DAX Benzonatate (Tessalon) 100 mg PO TIDPRN PRN PRN Reason: Cough Last Admin: 10/12/17 19:54 Dose: 100 mg Dextrose/Water (Dextrose 50%) 25 gm IVP PRN PRN PRN Reason: HYPOGLYCEMIA PROTOCOL Diltiazem HCl (Cardizem Cd) 120 mg PO DAILY [facility] Last Admin: 10/12/17 08:42 Dose: 120 mg Furosemide (Lasix) 40 mg PO DAILY-AC [facility] Last Admin: 10/12/17 08:41 Dose: 40 mg Gabapentin (Neurontin) 300 mg PO HS [facility] Last Admin: 10/11/17 20:19 Dose: 300 mg Glucagon (Glucagon) 1 mg IM PRN PRN PRN Reason: HYPOGLYCEMIA PROTOCOL Guaifenesin (Robitussin Sf) 200 mg PO Q4H PRN PRN Reason: Cough Last Admin: 10/12/17 15:12 Dose: 200 mg Hydralazine HCl (Apresoline) 10 mg SLOW IVP Q4H PRN PRN Reason: Systolic BP > 180 Piperacillin Sod/Tazobactam (Sod 3.375 gm/ Sodium Chloride) 100 mls @ 200 mls/ hr IVPB Q6HR [facility] Last Admin: 10/12/17 17:37 Dose: 100 mls Dextrose/Water (D5w) 1,000 mls @ 0 mls/hr IV INF PRN; As Directed PRN Reason: HYPOGLYCEMIA PROTOCOL Vancomycin HCl 1.25 gm/ Sodium (Chloride) 250 mls @ 166.667 mls/hr IVPB 0600, 1800 [facility] Last Admin: 10/12/17 17:39 Dose: 250 mls Insulin Human Regular (Humulin R) 0 units SC .MILD SLIDING PRN; Protocol PRN Reason: MILD SLIDING SCALE Last Admin: 10/10/17 20:50 Dose: 3 unit Loperamide HCl (Imodium) 2 mg PO PRN PRN PRN Reason: Diarrhea/Loose Stools Loratadine (Claritin) 10 mg PO DAILYPRN PRN PRN Reason: Sinus Symptoms Magnesium Hydroxide (Milk Of Magnesium) 30 ml PO DAILYPRN PRN PRN Reason: Constipation Last Admin: 10/10/17 05:38 Dose: 30 ml Metoprolol Succinate (Toprol Xl) 25 mg PO DAILY [facility] Last Admin: 10/12/17 08:41 Dose: 25 mg Mineral Oil/White Petrolatum (Eucerin Cream) 0 gm TOP BIDPRN PRN PRN Reason: Dry Skin Miscellaneous Medication (Pharmacy To Dose) 1 each IVPB ONE PRN PRN Reason: Pharmacy to dose Stop: 10/18/17 20:56 Ondansetron HCl (Zofran Odt) 4 mg PO Q6H PRN PRN Reason: Nausea/Vomiting Ondansetron HCl (Zofran) 4 mg IVP Q6H PRN PRN Reason: Nausea/Vomiting Pantoprazole Sodium (Protonix) 40 mg PO DAILY [facility] Last Admin: 10/12/17 08:41 Dose: 40 mg Phenol (Chloraseptic [place] 180 Ml Bot) 0 ml PO PRN PRN PRN Reason: Sore Throat Polyethylene Glycol (Miralax) 17 gm PO DAILY PRN PRN Reason: Constipation Last Admin: 10/11/17 16:37 Dose: 17 gm Saccharomyces Boulardii (Florastor) 250 mg PO DAILY [facility] Last Admin: 10/12/17 08:41 Dose: 250 mg Senna (Senokot) 2 tab PO HSPRN PRN PRN Reason: Constipation Senna/Docusate Sodium (Senokot S) 1 tab PO BID [facility] Last Admin: 10/12/17 08:42 Dose: 1 tab Sodium Chloride ([place] Nasal [place] 0.65%) 0 ml EA NARE QIDPRN PRN PRN Reason: Nasal Congestion Sodium Chloride (Flush - Normal Saline) 10 ml IVF Q12HR [facility] Last Admin: 10/12/17 15:27 Dose: Not Given Sodium Chloride (Flush - Normal Saline) 10 ml IVF PRN PRN PRN Reason: Saline Flush Tamsulosin HCl (Flomax) 0.4 mg PO DAILY [facility] Last Admin: 10/12/17 08:42 Dose: 0.4 mg Temazepam (Restoril) 15 mg PO HS PRN PRN Reason: Insomnia Last Admin: 10/11/17 21:59 Dose: 15 mg Tizanidine HCl (Zanaflex) 4 mg PO BID PRN PRN Reason: Muscle Spasm Triamterene/HCTZ (Maxzide-25) 1 tab PO DAILY [facility] Last Admin: 10/11/17 08:39 Dose: 1 tab
[2017-10-12] MEDS: Gabapentin 300 MG CAP PO SCH (21:53)
[2017-10-12] MEDS: Temazepam 15 MG CAP PO PRN (21:53)
[2017-10-13] MEDS: Piperacillin/Tazobactam 3.375 GM in Sodium Chloride 0.9% 100 ML IVPB SCH ×4 (00:38→17:54)
[2017-10-13] MEDS: Benzonatate 100 MG CAP PO PRN (03:44)
[2017-10-13] MEDS: Vancomycin HCl 1.25 GM in Sodium Chloride 0.9% 250 ML 250 ML IVPB SCH ×2 (05:31→18:33)
[2017-10-13] MEDS ORDERED: Cepastat Lozenges 1 LOZ PO PRN (07:40)
[2017-10-13] MEDS: Senokot S 8.6-50 MG TAB PO SCH ×2 (07:58→21:30)
[2017-10-13] MEDS: Saccharomyces boulardii 250 MG CAP PO SCH (09:00)
[2017-10-13] MEDS: guaiFENesin ER 600 MG TAB PO SCH ×2 (09:00→21:30)
[2017-10-13] MEDS ORDERED: Aspirin 81 mg Enteric Coated Tablet PO SCH (09:00)
[2017-10-13] MEDS: Furosemide 40 MG TAB PO SCH (09:03)
[2017-10-13] MEDS: Tamsulosin HCl 0.4 MG CAP PO SCH (09:04)
[2017-10-13] MEDS: Insulin Regular 300 UNITS/3 ML VIAL SC PRN (12:02)
--- NOTE | 2017-10-13 19:37 | PDOC.PN ---
- Subjective Encounter Start Date: 10/13/17 Encounter Start Time: 13:00 Patient seen and examined for cellulitis. No new complaints. No overnight events - Objective MAR Reviewed: Yes Vital Signs & Weight: Vital Signs (12 hours) Temp Pulse Resp BP Pulse Ox 10/13/17 16:00 98.0 F 86 16 106/71 98 10/13/17 11:55 97.7 F 88 14 111/71 94 L 10/13/17 08:00 97.8 F 83 16 Weight Admit Weight 179 lb 3.2 oz Weight 179 lb I&O: 10/12/17 10/13/17 10/14/17 06:59 06:59 06:59 Intake Total 5769 691 5816 Output Total 950 1000 Balance 150 -40 1600 Result Diagrams: 10/12/17 04:46 10/12/17 04:46 Additional Labs: Accuchecks 10/13/17 10/13/17 10/13/17 16:13 11:06 05:36 POC Glucose 135 H 175 H 125 H Phys Exam - Physical Examination Constitutional: NAD Respiratory: no wheezing, no rhonchi Cardiovascular: RRR, no rub Gastrointestinal: soft, non-tender, positive bowel sounds Musculoskeletal: no edema left hand dressing present Dx/Plan - Plan DVT proph w/SCDs IMPRESSION: 1. Left hand cellulitis due to Dog bite 2. HTN 3. 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 Par Afib 5. Hypokalemia / Obesity BMI 33.8 / Other issues per H&P PLAN: * Cont wound care * Await final blood cultures * Cont current meds as below * Cont Atbx * AM labs Review of Systems - Review of Systems Cardiovascular: negative: chest pain, palpitations, orthopnea, paroxysmal nocturnal dyspnea, edema, light headedness, other Gastrointestinal: negative: Nausea, Vomiting, Abdominal Pain, Diarrhea, Constipation, Melena, Hematochezia, Other - Medications/Allergies Allergies/Adverse Reactions: Allergies Allergy/AdvReac Type Severity Reaction Status Date / Time No Known Drug Allergies Allergy Verified 10/09/17 07:57 Medications: Current Medications Acetaminophen (Tylenol) 650 mg PO Q4H PRN PRN Reason: Headache/Fever or Pain Hydrocodone Bitart/Acetaminophen ([place] 10/325) 1 tab PO Q4H PRN PRN Reason: Moderate Pain (4-6) Last Admin: 10/09/17 17:49 Dose: 1 tab Hydrocodone Bitart/Acetaminophen ([place] 5/325) 1 tab PO Q4H PRN PRN Reason: Moderate Pain (4-6) Al Hydroxide/Mg Hydroxide (Maalox) 30 ml PO Q6H PRN PRN Reason: Heartburn or Indigestion Artificial Tears (Tears Naturale) 0 drop EA EYE PRN PRN PRN Reason: Dry Eyes Aspirin (Ecotrin) 81 mg PO Q2D [facility] Last Admin: 10/13/17 08:59 Dose: 81 mg Benzonatate (Tessalon) 100 mg PO TIDPRN PRN PRN Reason: Cough Last Admin: 10/13/17 03:44 Dose: 100 mg Dextrose/Water (Dextrose 50%) 25 gm IVP PRN PRN PRN Reason: HYPOGLYCEMIA PROTOCOL Diltiazem HCl (Cardizem Cd) 120 mg PO DAILY [facility] Last Admin: 10/13/17 09:03 Dose: Not Given Furosemide (Lasix) 40 mg PO DAILY-[facility] Last Admin: 10/13/17 09:03 Dose: Not Given Gabapentin (Neurontin) 300 mg PO HS [facility] Last Admin: 10/12/17 21:53 Dose: 300 mg Glucagon (Glucagon) 1 mg IM PRN PRN PRN Reason: HYPOGLYCEMIA PROTOCOL Guaifenesin (Robitussin Sf) 200 mg PO Q4H PRN PRN Reason: Cough Last Admin: 10/12/17 15:12 Dose: 200 mg Guaifenesin (Mucinex) 600 mg PO Q12HR [facility] Last Admin: 10/13/17 09:00 Dose: 600 mg Hydralazine HCl (Apresoline) 10 mg SLOW IVP Q4H PRN PRN Reason: Systolic BP > 180 Piperacillin Sod/Tazobactam (Sod 3.375 gm/ Sodium Chloride) 100 mls @ 200 mls/ hr IVPB Q6HR [facility] Last Admin: 10/13/17 17:54 Dose: 100 mls Dextrose/Water (D5w) 1,000 mls @ 0 mls/hr IV INF PRN; As Directed PRN Reason: HYPOGLYCEMIA PROTOCOL Vancomycin HCl 1.25 gm/ Sodium (Chloride) 250 mls @ 166.667 mls/hr IVPB 0600, 1800 [facility] Last Admin: 10/13/17 18:33 Dose: 250 mls Insulin Human Regular (Humulin R) 0 units SC .MILD SLIDING PRN; Protocol PRN Reason: MILD SLIDING SCALE Last Admin: 10/13/17 12:02 Dose: 2 unit Loperamide HCl (Imodium) 2 mg PO PRN PRN PRN Reason: Diarrhea/Loose Stools Loratadine (Claritin) 10 mg PO DAILYPRN PRN PRN Reason: Sinus Symptoms Magnesium Hydroxide (Milk Of Magnesium) 30 ml PO DAILYPRN PRN PRN Reason: Constipation Last Admin: 10/10/17 05:38 Dose: 30 ml Metoprolol Succinate (Toprol Xl) 25 mg PO DAILY [facility] Last Admin: 10/13/17 09:04 Dose: Not Given Mineral Oil/White Petrolatum (Eucerin Cream) 0 gm TOP BIDPRN PRN PRN Reason: Dry Skin Miscellaneous Medication (Pharmacy To Dose) 1 each IVPB ONE PRN PRN Reason: Pharmacy to dose Stop: 10/18/17 20:56 Ondansetron HCl (Zofran Odt) 4 mg PO Q6H PRN PRN Reason: Nausea/Vomiting Ondansetron HCl (Zofran) 4 mg IVP Q6H PRN PRN Reason: Nausea/Vomiting Pantoprazole Sodium (Protonix) 40 mg PO DAILY [facility] Last Admin: 10/13/17 09:00 Dose: 40 mg Phenol (Chloraseptic [place] 180 Ml Bot) 0 ml PO PRN PRN PRN Reason: Sore Throat Polyethylene Glycol (Miralax) 17 gm PO DAILY PRN PRN Reason: Constipation Last Admin: 10/11/17 16:37 Dose: 17 gm Saccharomyces Boulardii (Florastor) 250 mg PO DAILY [facility] Last Admin: 10/13/17 09:00 Dose: 250 mg Senna (Senokot) 2 tab PO HSPRN PRN PRN Reason: Constipation Senna/Docusate Sodium (Senokot S) 1 tab PO BID [facility] Last Admin: 10/13/17 07:58 Dose: Not Given Sodium Chloride ([place] Nasal [place] 0.65%) 0 ml EA NARE QIDPRN PRN PRN Reason: Nasal Congestion Sodium Chloride (Flush - Normal Saline) 10 ml IVF Q12HR [facility] Last Admin: 10/13/17 09:04 Dose: 10 ml Sodium Chloride (Flush - Normal Saline) 10 ml IVF PRN PRN PRN Reason: Saline Flush Tamsulosin HCl (Flomax) 0.4 mg PO DAILY [facility] Last Admin: 10/13/17 09:04 Dose: Not Given Temazepam (Restoril) 15 mg PO HS PRN PRN Reason: Insomnia Last Admin: 10/12/17 21:53 Dose: 15 mg Throat Lozenges (Cepastat Lozenges) 1 olman PO Q2H PRN PRN Reason: Sore Throat Tizanidine HCl (Zanaflex) 4 mg PO BID PRN PRN Reason: Muscle Spasm Triamterene/HCTZ (Maxzide-25) 1 tab PO DAILY [facility] Last Admin: 10/11/17 08:39 Dose: 1 tab
[2017-10-13] MEDS: Gabapentin 300 MG CAP PO SCH (21:30)
[2017-10-13] MEDS: Temazepam 15 MG CAP PO PRN (21:30)
[2017-10-14] MEDS: Piperacillin/Tazobactam 3.375 GM in Sodium Chloride 0.9% 100 ML IVPB SCH ×3 (00:52→13:03)
[2017-10-14] MEDS: Vancomycin HCl 1.25 GM in Sodium Chloride 0.9% 250 ML 250 ML IVPB SCH (06:18)
[2017-10-14] MEDS: Furosemide 40 MG TAB PO SCH (09:07)
[2017-10-14] MEDS: Saccharomyces boulardii 250 MG CAP PO SCH (09:08)
[2017-10-14] MEDS: guaiFENesin ER 600 MG TAB PO SCH (09:08)
[2017-10-14] MEDS: Senokot S 8.6-50 MG TAB PO SCH (09:09)
[2017-10-14] MEDS: Tamsulosin HCl 0.4 MG CAP PO SCH (09:09)
[2017-10-14 16:25] VITALS: BP 96/52; TEMP 98.1
--- NOTE | 2017-10-14 17:44 | DIS ---
DATE OF DISCHARGE: 10/14/2017 DISCHARGE DISPOSITION: Home. FOLLOWUP: 1. Follow up with primary care physician, Dr. Castellano, in 1 week. 2. [facility] has been arranged. 3. Follow up with Dr. Haywood and Dr. Mendez. The patient was seen and examined on the day of discharge. Denies any new complaints. No chest pain , shortness of breath, or palpitations. INPATIENT PROCEDURE: On 10/09/2017, the patient underwent incision and drainage with exploration of the flexor sheath of left index finger. BRIEF HOSPITAL COURSE: The patient is an 82-year-old male, who presented to the emergency room with increasing left hand swelling and tenderness after a recent dog bite. Please refer to the history an d physical dated 10/08/2017 for further details. The patient was admitted to the hospital with a diagnosis of left hand cellulitis with failed outpati ent therapy. The patient was started on broad-spectrum antibiotics. He was seen by Orthopedic as we ll as Infectious Disease. He underwent operative procedure as discussed above. His culture from the wound has been negative. He will be discharged to home on ciprofloxacin as well as Augmentin for th e next 10 more days per Infectious Disease recommendation. All other home medications were left unch anged. SIGNIFICANT LABORATORY DATA: CBC on 10/12/2017 showed WBC 2.9 with hemoglobin 8.2, platelet count of 44. Potassium 3.2, repeat potassium 3.8. FINAL DIAGNOSES: 1. Left hand cellulitis after a recent dog bite, status post incision and exploration. 2. Hypertension. 3. Paroxysmal atrial fibrillation. 4. Hypokalemia. 5. Obesity with a body mass index of 33.8. 6. 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 7. Benign prostatic hypertrophy. 8. Chronic low back pain. 9. Chronic insomnia. Plan of care was discussed with the patient. He stated understanding.
== END 2017-10-14 18:18 | disposition home or self-care (01) | DRG 579 ==
LOC: ERS 13:28 → SDC/OP 17:13 → SURG A 21:04
PROVIDERS: ADMIT Internal Medicine; ATTEND Internal Medicine
PROC: 0XJ Anatomical Regions, Upper Extremities, Inspection (ICD-10-PCS; principal; 2017-10-08)
PROC: 0LJX0ZZ Inspection of Upper Tendon, Open Approach (ICD-10-PCS; 2017-10-08)
DX: L03.114 Cellulitis of left upper limb (principal); D61.810 Antineoplastic chemotherapy induced pancytopenia; C95.90 Leukemia, unspecified not having achieved remission; I50.32 Chronic diastolic (congestive) heart failure; S61.452A Open bite of left hand, initial encounter; I48.0 Paroxysmal atrial fibrillation; E11.9 Type 2 diabetes mellitus without complications; I11.0 Hypertensive heart disease with heart failure; K21.9 Gastro-esophageal reflux disease without esophagitis; N40.0 Benign prostatic hyperplasia without lower urinary tract symptoms; G62.9 Polyneuropathy, unspecified; F41.9 Anxiety disorder, unspecified; F32.9 Major depressive disorder, single episode, unspecified; F51.04 Psychophysiologic insomnia; G89.29 Other chronic pain; M54.5 Low back pain; E87.6 Hypokalemia; E66.9 Obesity, unspecified; Z68.33 Body mass index [BMI] 33.0-33.9, adult; T45.1X5A Adverse effect of antineoplastic and immunosuppressive drugs, initial encounter; Z79.82 Long term (current) use of aspirin; Z79.899 Other long term (current) drug therapy; W54.0XXA Bitten by dog, initial encounter
CPT/HCPCS: 36415; 36416; 76000; 80048; 80053; 80202; 81001; 83735; 85025; 86140; 87070; 87205; 90471; 90715; 93005; 93010; A4216; J1815; J2001; J2270; J2543; J2704; J3010; J3370; J7050

== ENCOUNTER 2017-10-15 10:44 | Outpatient (CLI) | payer MEDICARE | END 2017-10-15 10:45 | disposition home or self-care (01) | LOC: BICRAD 10:44 | PROVIDERS: ATTEND Family Medicine | DX: J18.9 Pneumonia, unspecified organism (principal); C93.10 Chronic myelomonocytic leukemia not having achieved remission; J90 Pleural effusion, not elsewhere classified; J81.1 Chronic pulmonary edema; I51.7 Cardiomegaly | CPT/HCPCS: 71046 ==

== ENCOUNTER 2017-11-30 19:15 | Inpatient (IN) | payer MEDICARE ==
[2017-11-30 20:01] LABS: Hemoglobin 10.3 g/dL (14.0-18.0); Mean Corpuscular HGB CONC 32.3 g/dL (32.0-36.0); Mean Corpuscular Hemoglobin 27.1 pg (27.0-31.0); Mean Corpuscular Volume 83.7 fL (78.0-98.0); Mean Platelet Volume 8.5 fL (7.4-10.4); Platelet Count 204 thou/uL (130-400); RBC Distribution Width 20.7 % (11.5-14.5); Red Blood Cell (RBC) Count 3.81 mill/uL (4.70-6.10); White Blood Cell (WBC) Count 3.4 thou/uL (4.8-10.8)
[2017-11-30 20:12] LABS: ALT (SGPT) 15 U/L (8-55); AST (SGOT) 23 U/L (5-34); Alkaline Phosphatase 136 U/L (40-150); Anion Gap 14 mmol/L (10-20); BUN (Urea Nitrogen) 16 mg/dL (8.4-25.7); Bilirubin, Total 1.4 mg/dL (0.2-1.2); CK (CPK) 10 U/L (30-200); Calc. Creatinine Clearance 0 mL/min (70-130); Calcium 9.4 mg/dL (7.8-10.44); Carbon Dioxide 23 mmol/L (23-31); Chloride 100 mmol/L (98-107); Estimated GFR-MDRD Greater than 90; Globulin 3.4 g/dL (2.4-3.5); Glucose 117 mg/dL (83-110); Potassium 3.9 mmol/L (3.5-5.1); Protein, Total 7.4 g/dL (5.8-8.1); Sodium 133 mmol/L (136-145)
[2017-11-30 20:16] LABS: Troponin I Less than 0.010 ng/mL (< 0.028)
[2017-11-30 20:18] LABS: Anisocytosis SLIGHT = 6-15 cells (100X) (0-5/hpf); Band 13 % (5-11); Eosinophils 2 % (0-10); Hypochromia SLIGHT = 6-15 cells (100X) (0-5/hpf); Large Platelets SLIGHT; Lymphocytes 14 % (21-51); MDiff Complete? YES; Monocytes 12 % (0-10); Neutrophil 59 % (42-75); Ovalocytes SLIGHT = 2-5 cells (100X) (0-1/hpf); PLT Morphology Comment Appears Adequate; Tear Drops SLIGHT = 2-5 cells (100X) (0-1/hpf)
[2017-11-30] MEDS ORDERED: Nitroglycerin 2% Ointment 1 INCH/1 GM Packet ONE (21:09)
[2017-11-30] MEDS ORDERED: Furosemide 40 MG/4 ML VIAL ONE (21:09)
--- NOTE | 2017-11-30 22:01 | RAD ---
RADIOGRAPH CHEST 1 VIEW: Date: 11/30/17 Time: 8:39 p.m. HISTORY: 82-year-old male with dyspnea. COMPARISON: 09/23/17 FINDINGS: There is mild pulmonary vascular prominence, especially on the right side. New finding of small to mo derate sized bilateral pleural effusions. New finding of greater degree of haziness of the right mid and lower lung zones, especially medially at the base. No pneumothorax. IMPRESSION: 1. Bilateral pleural effusions. 2. Nonspecific mild to moderate pulmonary densities at the right lower lung zone, which could be pulmonary interstitial edema, atelectasis, or pneumonia. ALAYNA [] POS: BILLY
[2017-11-30] MEDS ORDERED: Aspirin 81 mg Enteric Coated Tablet PO SCH (22:45)
[2017-12-01 00:44] VITALS: BMI 35.4
[2017-12-01] MEDS: Furosemide 40 MG/4 ML VIAL SLOW IVP SCH ×2 (06:18→14:54)
[2017-12-01] MEDS ORDERED: Acetaminophen ER (8hr) 650 MG TAB PO PRN (06:29)
[2017-12-01] MEDS ORDERED: HYDROcodone/Acetaminophen 5/325 mg Tablet PO PRN (06:29)
[2017-12-01] MEDS ORDERED: Promethazine 25 MG TAB PO PRN (06:29)
[2017-12-01] MEDS ORDERED: Dextrose 5% in Water 1,000 ML IV PRN (06:31)
[2017-12-01] MEDS ORDERED: Dextrose 50% Abboject 50 ML SYRINGE SLOW IVP PRN (06:31)
[2017-12-01] MEDS ORDERED: Insulin Regular 300 UNITS/3 ML VIAL SC PRN (06:31)
[2017-12-01] MEDS: Multivitamin W/ Minerals 1 TAB PO SCH (08:21)
[2017-12-01] MEDS: Saccharomyces boulardii 250 MG CAP PO SCH (08:22)
[2017-12-01] MEDS: Tamsulosin HCl 0.4 MG CAP PO SCH (08:22)
[2017-12-01] MEDS: Triamterene/Hydrochlorothiazide 37.5 mg/25 mg Tablet PO SCH (08:22)
[2017-12-01] MEDS: Docusate 100 MG CAP PO SCH (08:22)
[2017-12-01] MEDS: Potassium Chloride 10 MEQ TAB PO SCH (08:22)
[2017-12-01] MEDS ORDERED: Diabetic Tussin 200 MG/10 ML UDCUP PO PRN (08:36)
[2017-12-01] MEDS ORDERED: Loperamide HCl 2 MG CAP PO PRN (08:36)
[2017-12-01] MEDS ORDERED: Ondansetron HCl/PF 4 MG/2 ML Vial IVP PRN (08:36)
[2017-12-01] MEDS ORDERED: hydrALAZINE 20 MG/ML VIAL SLOW IVP PRN (08:36)
[2017-12-01] MEDS ORDERED: Artificial Tears 18 DROP/0.9 ML EA EYE PRN (08:36)
[2017-12-01] MEDS ORDERED: Eucerin (Mineral Oil/Petrolatum,White) 30 gm Jar TOP PRN (08:36)
[2017-12-01] MEDS ORDERED: Acetaminophen 325 MG TAB PO PRN (08:36)
[2017-12-01] MEDS ORDERED: Sodium Chloride 0.65% Nasal 44 ML BOT EA NARE PRN (08:36)
[2017-12-01] MEDS ORDERED: Nitroglycerin 0.4 MG TAB (25 Tab Bottle) SL PRN (08:36)
[2017-12-01] MEDS ORDERED: Mag-Al 1200 mg/1200 mg/30 ML UDCUP PO PRN (08:36)
[2017-12-01] MEDS ORDERED: Milk Of Magnesia 30 ML UDCUP PO PRN (08:36)
[2017-12-01] MEDS ORDERED: Bisacodyl 10 MG SUPP PR PRN (08:36)
[2017-12-01] MEDS ORDERED: Ondansetron ODT 4 MG TAB PO PRN (08:36)
[2017-12-01] MEDS ORDERED: Chloraseptic Spray 180 ml Bottle PO PRN (08:36)
[2017-12-01] MEDS ORDERED: Loratadine 10 MG TAB PO PRN (08:36)
[2017-12-01] MEDS ORDERED: Famotidine 20 MG TAB PO SCH (09:00)
[2017-12-01] MEDS ORDERED: Non-Formulary Item 1 EACH (Multivit-Min/Fa/Lycopen/Lutein [Centrum Silver Men Tablet] 1 E PO SCH (09:00)
--- NOTE | 2017-12-01 11:37 | PDOC.PN ---
- Subjective Encounter Start Date: 12/01/17 Encounter Start Time: 10:00 -: old records requested/rev Patient seen and examined for CHF, he is feeling better, No overnight events - Objective MAR Reviewed: Yes Vital Signs & Weight: Vital Signs (12 hours) Temp Pulse Resp BP BP Pulse Ox 12/01/17 08:22 93 110/61 12/01/17 08:00 98.1 F 93 20 94 L 12/01/17 07:00 98.1 F 93 20 96/59 L 96 12/01/17 04:13 97 12/01/17 04:00 98.8 F 80 18 95/67 100 12/01/17 00:11 97.6 F 85 18 101/51 L 91 L Weight Weight 182 lb 5.156 oz I&O: 11/30/17 12/01/17 12/02/17 06:59 06:59 06:59 Intake Total 54 Output Total 1750 Balance -1696 Result Diagrams: 11/30/17 19:38 11/30/17 19:38 Additional Labs: Accuchecks 12/01/17 10:24 POC Glucose 133 H Radiology Reviewed by me: Yes (chest xray) EKG Reviewed by me: Yes (afib) Phys Exam - Physical Examination Constitutional: NAD HEENT: PERRLA, moist MMs, sclera anicteric Neck: no JVD, supple Respiratory: no wheezing, no rales, no rhonchi Cardiovascular: no significant murmur, irregular Gastrointestinal: soft, non-tender, no distention, positive bowel sounds Musculoskeletal: pulses present, edema present Neurological: non-focal, normal sensation, moves all 4 limbs Psychiatric: normal affect, A&O x 3 Skin: no rash, normal turgor Dx/Plan (1) Acute on chronic diastolic ACC/AHA stage C congestive heart failure Code(s): I50.33 - ACUTE ON CHRONIC DIASTOLIC (CONGESTIVE) HEART FAILURE Status : Acute (2) Acute respiratory failure with hypoxia Code(s): J96.01 - ACUTE RESPIRATORY FAILURE WITH HYPOXIA Status: Acute (3) Anemia, normocytic normochromic Code(s): D64.9 - ANEMIA, UNSPECIFIED Status: Chronic (4) Anxiety and depression Code(s): F41.9 - ANXIETY DISORDER, UNSPECIFIED; F32.9 - MAJOR DEPRESSIVE DISORDER, SINGLE EPISODE, UNSPECIFIED Status: Chronic (5) BPH (benign prostatic hyperplasia) Code(s): N40.0 - BENIGN PROSTATIC HYPERPLASIA WITHOUT LOWER URINRY TRACT SYMP Status: Chronic (6) Diabetes type 2, controlled Code(s): E11.9 - TYPE 2 DIABETES MELLITUS WITHOUT COMPLICATIONS Status: Chronic (7) GERD (gastroesophageal reflux disease) Code(s): K21.9 - GASTRO-ESOPHAGEAL REFLUX DISEASE WITHOUT ESOPHAGITIS Status: Chronic (8) H/O leukemia Code(s): Z85.6 - PERSONAL HISTORY OF LEUKEMIA Status: Chronic (9) Obesity (BMI 30-39.9) Code(s): E66.9 - OBESITY, UNSPECIFIED Status: Chronic (10) Paroxysmal atrial fibrillation Code(s): I48.0 - PAROXYSMAL ATRIAL FIBRILLATION Status: Chronic (11) Peripheral neuropathy Code(s): G62.9 - POLYNEUROPATHY, UNSPECIFIED Status: Chronic - Plan cont current plan of care, 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 Review of Systems - Review of Systems Constitutional: negative: fever, chills, sweats, weakness, malaise, other Eyes: negative: Pain, Vision Change, Conjunctivae Inflammation, Eyelid Inflammation, Redness, Other Respiratory: Shortness of Breath. negative: Cough, Dry, Hemoptysis, SOB with Excertion, Pleuritic Pain, Sputum, Wheezing Cardiovascular: edema. negative: chest pain, palpitations, orthopnea, paroxysmal nocturnal dyspnea, light headedness, other Gastrointestinal: negative: Nausea, Vomiting, Abdominal Pain, Diarrhea, Constipation, Melena, Hematochezia, Other Genitourinary: negative: Dysuria, Frequency, Incontinence, Hematuria, Retention , Other Musculoskeletal: negative: Neck Pain, Shoulder Pain, Arm Pain, Back Pain, Hand Pain, Leg Pain, Foot Pain, Other Skin: negative: Rash, Lesions, Mark, Bruising, Other - Medications/Allergies Allergies/Adverse Reactions: Allergies Allergy/AdvReac Type Severity Reaction Status Date / Time No Known Drug Allergies Allergy Verified 10/09/17 07:57 Medications: Current Medications Acetaminophen (Tylenol Er (8hr Arthritis Pain)) 650 mg PO BIDPRN PRN PRN Reason: pain/fever Acetaminophen (Tylenol) 650 mg PO Q4H PRN PRN Reason: Headache/Fever or Mild Pain Hydrocodone Bitart/Acetaminophen ([place] 5/325) 1 tab PO DAILYPRN PRN PRN Reason: Pain Al Hydroxide/Mg Hydroxide (Maalox) 15 ml PO Q4H PRN PRN Reason: Heartburn or Indigestion Albuterol/Ipratropium (Duoneb) 3 ml NEB Q6H PRN PRN Reason: SOB &/or Wheezing Artificial Tears (Tears Naturale) 0 drop EA EYE PRN PRN PRN Reason: Dry Eyes Aspirin (Aspirin Chewable) 81 mg PO HS [facility] Bisacodyl (Dulcolax) 10 mg [place] DAILYPRN PRN PRN Reason: Constipation Dextrose/Water (Dextrose 50%) 25 gm SLOW IVP PRN PRN PRN Reason: Hypoglycemia Diltiazem HCl (Cardizem Cd) 120 mg PO DAILY [facility] Last Admin: 12/01/17 08:22 Dose: 120 mg Docusate Sodium (Colace) 200 mg PO DAILY [facility] Last Admin: 12/01/17 08:22 Dose: 200 mg Furosemide (Lasix) 40 mg SLOW IVP 0600,1400 [facility] Last Admin: 12/01/17 06:18 Dose: 40 mg Gabapentin (Neurontin) 300 mg PO [facility] Glucagon (Glucagon) 1 mg IM PRN PRN PRN Reason: Hypoglycemia Guaifenesin (Robitussin Sf) 200 mg PO Q4H PRN PRN Reason: Cough Hydralazine HCl (Apresoline) 10 mg SLOW IVP Q4H PRN PRN Reason: Systolic BP > 180 Dextrose/Water (D5w) 1,000 mls @ 0 mls/hr IV .Q0M PRN; As Directed PRN Reason: Hypoglycemia Insulin Human Regular (Humulin R) 0 units SC .MILD SLIDING SCALE PRN PRN Reason: Mild Correctional Scale Iron/Minerals/Multivitamins (Theragran M) 1 tab PO DAILY [facility] Last Admin: 12/01/17 08:21 Dose: 1 tab Loperamide HCl (Imodium) 2 mg PO PRN PRN PRN Reason: Diarrhea/Loose Stools Loratadine (Claritin) 10 mg PO DAILYPRN PRN PRN Reason: Sinus Symptoms Magnesium Hydroxide (Milk Of Magnesium) 30 ml PO DAILYPRN PRN PRN Reason: Constipation Metoprolol Succinate (Toprol Xl) 25 mg PO DAILY [facility] Last Admin: 12/01/17 08:22 Dose: 25 mg Mineral Oil/White Petrolatum (Eucerin Cream) 0 gm TOP BIDPRN PRN PRN Reason: Dry Skin Nitroglycerin (Nitrostat) 0.4 mg SL Q5MIN PRN PRN Reason: Chest Pain Ondansetron HCl (Zofran Odt) 4 mg PO Q6H PRN PRN Reason: Nausea/Vomiting Ondansetron HCl (Zofran) 4 mg IVP Q6H PRN PRN Reason: Nausea/Vomiting Pantoprazole Sodium (Protonix) 40 mg PO DAILY [facility] Last Admin: 12/01/17 08:21 Dose: 40 mg Phenol (Chloraseptic [place] 180 Ml Bot) 0 ml PO PRN PRN PRN Reason: Sore Throat Potassium Chloride (Klor-Con 10) 10 meq PO QA-[facility] Last Admin: 12/01/17 08:22 Dose: 10 meq Promethazine HCl (Phenergan) 12.5 mg PO Q6H PRN PRN Reason: Nausea Saccharomyces Boulardii (Florastor) 250 mg PO DAILY [facility] Last Admin: 12/01/17 08:22 Dose: 250 mg Sodium Chloride ([place] Nasal [place] 0.65%) 0 ml EA NARE QIDPRN PRN PRN Reason: Nasal Congestion Tamsulosin HCl (Flomax) 0.4 mg PO DAILY [facility] Last Admin: 12/01/17 08:22 Dose: 0.4 mg Temazepam (Restoril) 15 mg PO HS [facility] Tizanidine HCl (Zanaflex) 4 mg PO HS [facility] Triamterene/HCTZ (Maxzide-25) 1 tab PO DAILY [facility] Last Admin: 12/01/17 08:22 Dose: 1 tab
--- NOTE | 2017-12-01 12:39 | HP ---
PRIMARY CARE PHYSICIAN: Dr. Liv Castellano. TIME OF EVALUATION: 2199. CODE STATUS: FULL CODE. CHIEF COMPLAINT: Worsening shortness of breath. HISTORY OF PRESENT ILLNESS: This is an 82-year-old male patient with past medical history of atrial fibrillation, congestive heart failure, the patient reported he was not taking Lasix in the past few days, also reported history of diabetes, who came to the hospital after having severe gradually worse mk shortness of breath, aggravated with exertion, improved with rest; however, the problem has been gradually getting worse to the point the patient has dyspnea with minimal physical effort. No fever , no chest pain. He also reported associated bilateral leg edema. REVIEW OF SYSTEMS: Constitutional: No fever, no chills, generalized weakness. Respiratory: Cough, no sputum production, shortness of breath. Cardiovascular: No chest pain, palpitation, patient had shortness of breath. Gastrointestinal: No nausea, vomiting, diarrhea, or abdominal pains. IT PROJECT COORDINATOR: N o dizziness, headache, or feeling lightheaded. Genitourinary: No burning with urination. Extremiti es: Bilateral leg edema. All other systems reviewed were negative except for the findings mentioned above. PAST MEDICAL HISTORY: Diabetes, CHF, leukemia, and hypertension. PAST SURGICAL HISTORY: Appendectomy, craniotomy, right shoulder surgery, tonsillectomy. PSYCHIATRIC HISTORY: Anxiety and depression. SOCIAL HISTORY: No alcohol, no drugs. No smoking. FAMILY HISTORY: Reviewed and noncontributory for current presentation. ALLERGIES: No known drug allergies. REPORTED MEDICATIONS: Lasix 20 mg once a day, diltiazem 180 mg once a day, tamsulosin 0.4 mg once a day, metoprolol 12.5 mg 2 times a day, tizanidine 4 mg every 8 hours, omeprazole 40 mg once a day, te mazepam 15 mg orally once a day, gabapentin 300 mg orally 2 times a day, potassium chloride 10 mEq or ally 2 times a day, aspirin 81 mg daily, Zofran 8 mg q.12, Colace 100 mg b.i.d., Dilaudid 125 mg 2 ti mes a day p.r.n., promethazine 12.5 mg every 6 hours p.r.n., [place] 10/325 mg half a tablet four times a day p.r.n., Centrum Silver 1 tablet once a day, and Prevagen 40 mg once day. PHYSICAL EXAMINATION: VITAL SIGNS: On presentation, heart rate 115, respiratory rate was 21, temperature 97.6, pain was 0, and oxygen saturation was 96. GENERAL APPEARANCE: The patient was alert, oriented, not any acute distress. HEENT: Normal conjunctivae, moist oral mucosa, anicteric. NECK: Bilateral JVD. RESPIRATORY: Bilateral air entry. The patient has rales bilaterally. Symmetrical expansion. CARDIOVASCULAR: Normal rate, regular rhythm, no murmurs, no gallop. Bilateral leg edema 4+. ABDOMEN: Soft, distended. Normal bowel sounds. MUSCULOSKELETAL: Baseline range of motion and strength. No tenderness. SKIN: Warm and intact. No pallor, no rash, no redness. NEUROLOGIC: Baseline sensory. No evidence of any focal weakness. Baseline speech. Cranial nerves sensory intact. PSYCHIATRIC: Good mood. No anxiety, oriented, ultimate judgment. LABORATORY DATA: White count 3.4, hemoglobin 10.3, MCV 83, platelet count 204. Chemistry: Sodium 1 33, potassium 3.9, chloride 100, carbon dioxide 23, anion gap 14, BUN 16, creatinine 0.7, GFR greater than 90, glucose 117, total bilirubin 1.4. AST, ALT, alkaline phosphatase, they are all normal. Cr eatine kinase 10. Beta natriuretic peptide 449. Chest x-ray was reviewed. The patient has bilatera l pleural effusions, nonspecific mild to moderate pulmonary density in the right lower lobe zone, whi ch could be pulmonary interstitial edema, atelectasis, or pneumonia. ASSESSMENT AND PLAN: 1. Acute congestive heart failure exacerbation, patient is in geno fluid overload, he was not takin g diuretics. The patient has bilateral leg edema, pleural effusions, is in anasarca, we will restart diuresis, monitor. 2. Uncontrolled diabetes. The patient has hyperglycemia, reconcile home medications, sliding scale for optimal control. 3. History of atrial fibrillation. Reconcile medication, this is probably chronic, seems to be cont rolled. 4. The patient has a history of leukemia, has monocytosis, not likely to have any infection at this point and he also have leukopenia. Monitor for any sign of infection, if present, start antibiotics. 5. Deep venous thrombosis prophylaxis. 6. Gastroesophageal reflux disease. Continue omeprazole.
[2017-12-01] MEDS: Temazepam 15 MG CAP PO SCH (20:27)
[2017-12-01] MEDS: tiZANidine HCl 4 MG TAB PO SCH (20:27)
[2017-12-01] MEDS: Gabapentin 300 MG CAP PO SCH (20:27)
[2017-12-01] MEDS ORDERED: Non-Formulary Item 1 EACH (Tizanidine Hcl [Tizanidine Hcl] 4 MG) PO SCH (21:00)
[2017-12-02 05:11] LABS: Anion Gap 11 mmol/L (10-20); BUN (Urea Nitrogen) 16 mg/dL (8.4-25.7); Calc. Creatinine Clearance 98 mL/min (70-130); Carbon Dioxide 33 mmol/L (23-31); Chloride 93 mmol/L (98-107); Estimated GFR-MDRD Greater than 90; Glucose 105 mg/dL (83-110); Sodium 134 mmol/L (136-145); Uric Acid 9.3 mg/dL (3.5-7.2)
[2017-12-02 05:15] LABS: Potassium 2.9 mmol/L (3.5-5.1)
[2017-12-02] MEDS: Furosemide 40 MG/4 ML VIAL SLOW IVP SCH ×2 (05:16→13:13)
[2017-12-02 05:52] LABS: Band 8 % (5-11); Elliptocytes SLIGHT = 2-5 cells (100X) (0-1/hpf); Eosinophils 5 % (0-10); Hypochromia SLIGHT = 6-15 cells (100X) (0-5/hpf); Large Platelets SLIGHT; Lymphocytes 37 % (21-51); MDiff Complete? YES; Mean Corpuscular HGB CONC 32.3 g/dL (32.0-36.0); Mean Corpuscular Volume 83.7 fL (78.0-98.0); Mean Platelet Volume 8.2 fL (7.4-10.4); Monocytes 25 % (0-10); Neutrophil 25 % (42-75); PLT Morphology Comment Appears Adequate; Platelet Count 150 thou/uL (130-400); Red Blood Cell (RBC) Count 3.33 mill/uL (4.70-6.10); Tear Drops SLIGHT = 2-5 cells (100X) (0-1/hpf); White Blood Cell (WBC) Count 2.2 thou/uL (4.8-10.8)
[2017-12-02] MEDS: Potassium Chloride 20 MEQ TAB PO SCH ×2 (05:54→07:57)
[2017-12-02] MEDS: Tamsulosin HCl 0.4 MG CAP PO SCH (07:57)
[2017-12-02] MEDS: Potassium Chloride 10 MEQ TAB PO SCH (07:57)
[2017-12-02] MEDS: Triamterene/Hydrochlorothiazide 37.5 mg/25 mg Tablet PO SCH (07:57)
[2017-12-02] MEDS: Multivitamin W/ Minerals 1 TAB PO SCH (07:57)
[2017-12-02] MEDS: Saccharomyces boulardii 250 MG CAP PO SCH (07:57)
[2017-12-02] MEDS: Docusate 100 MG CAP PO SCH (07:57)
--- NOTE | 2017-12-02 10:42 | PDOC.PN ---
- Subjective Encounter Start Date: 12/02/17 Encounter Start Time: 10:00 Patient seen and examined for CHF, he is feeling better, less dyspnea, edema improving. No overnight events - Objective MAR Reviewed: Yes Vital Signs & Weight: Vital Signs (12 hours) Temp Pulse Resp BP Pulse Ox 12/02/17 08:12 97 12/02/17 08:00 97.6 F 82 18 97 12/02/17 07:57 82 12/02/17 07:19 97.6 F 82 19 98/54 L 96 12/02/17 05:16 72 18 95/51 L 98 12/02/17 04:25 98.4 F 71 18 90/49 L 98 12/02/17 00:08 98.2 F 76 18 93/49 L 94 L Weight Weight 174 lb 6.17 oz I&O: 12/01/17 12/02/17 12/03/17 06:59 06:59 06:59 Intake Total 54 1490 Output Total 1750 2200 500 Balance -1696 -710 -500 Result Diagrams: 12/02/17 04:23 12/02/17 04:23 Additional Labs: Accuchecks 12/02/17 12/01/17 12/01/17 05:52 20:27 16:28 POC Glucose 118 H 138 H 137 H Radiology Reviewed by me: Yes (echo report noted) EKG Reviewed by me: Yes Phys Exam - Physical Examination Constitutional: NAD HEENT: PERRLA, moist MMs, sclera anicteric Neck: no JVD, supple Respiratory: no wheezing, no rhonchi reduced air entry at base Cardiovascular: irregular SM+ Gastrointestinal: soft, non-tender, no distention, positive bowel sounds Musculoskeletal: pulses present, edema present Neurological: non-focal, normal sensation, moves all 4 limbs Psychiatric: normal affect, A&O x 3 Skin: no rash, normal turgor Dx/Plan (1) Acute on chronic diastolic ACC/AHA stage C congestive heart failure Code(s): I50.33 - ACUTE ON CHRONIC DIASTOLIC (CONGESTIVE) HEART FAILURE Status : Acute (2) Acute respiratory failure with hypoxia Code(s): J96.01 - ACUTE RESPIRATORY FAILURE WITH HYPOXIA Status: Acute (3) Anemia, normocytic normochromic Code(s): D64.9 - ANEMIA, UNSPECIFIED Status: Chronic (4) Anxiety and depression Code(s): F41.9 - ANXIETY DISORDER, UNSPECIFIED; F32.9 - MAJOR DEPRESSIVE DISORDER, SINGLE EPISODE, UNSPECIFIED Status: Chronic (5) BPH (benign prostatic hyperplasia) Code(s): N40.0 - BENIGN PROSTATIC HYPERPLASIA WITHOUT LOWER URINRY TRACT SYMP Status: Chronic (6) Diabetes type 2, controlled Code(s): E11.9 - TYPE 2 DIABETES MELLITUS WITHOUT COMPLICATIONS Status: Chronic (7) GERD (gastroesophageal reflux disease) Code(s): K21.9 - GASTRO-ESOPHAGEAL REFLUX DISEASE WITHOUT ESOPHAGITIS Status: Chronic (8) H/O leukemia Code(s): Z85.6 - PERSONAL HISTORY OF LEUKEMIA Status: Chronic (9) Obesity (BMI 30-39.9) Code(s): E66.9 - OBESITY, UNSPECIFIED Status: Chronic (10) Paroxysmal atrial fibrillation Code(s): I48.0 - PAROXYSMAL ATRIAL FIBRILLATION Status: Chronic (11) Peripheral neuropathy Code(s): G62.9 - POLYNEUROPATHY, UNSPECIFIED Status: Chronic (12) Hypokalemia Code(s): E87.6 - HYPOKALEMIA Status: Acute (13) Moderate tricuspid regurgitation Code(s): I07.1 - RHEUMATIC TRICUSPID INSUFFICIENCY Status: Acute (14) Pulmonary hypertension Code(s): I27.20 - PULMONARY HYPERTENSION, UNSPECIFIED Status: Acute - Plan cont current plan of care * transfer to tele * continue IV lasix * replace potassium * wean off oxygen as tolerated * medication reviewed as below * symptomatic treatment. Review of Systems - Review of Systems Eyes: negative: Pain, Vision Change, Conjunctivae Inflammation, Eyelid Inflammation, Redness, Other ENT: negative: Ear Pain, Ear Discharge, Nose Pain, Nose Discharge, Nose Congestion, Mouth Pain, Mouth Swelling, Throat Pain, Throat Swelling, Other Respiratory: Shortness of Breath, SOB with Excertion. negative: Cough, Dry, Hemoptysis, Pleuritic Pain, Sputum, Wheezing Cardiovascular: edema. negative: chest pain, palpitations, orthopnea, paroxysmal nocturnal dyspnea, light headedness, other Gastrointestinal: negative: Nausea, Vomiting, Abdominal Pain, Diarrhea, Constipation, Melena, Hematochezia, Other Genitourinary: negative: Dysuria, Frequency, Incontinence, Hematuria, Retention , Other Musculoskeletal: negative: Neck Pain, Shoulder Pain, Arm Pain, Back Pain, Hand Pain, Leg Pain, Foot Pain, Other Skin: negative: Rash, Lesions, Mark, Bruising, Other - Medications/Allergies Allergies/Adverse Reactions: Allergies Allergy/AdvReac Type Severity Reaction Status Date / Time No Known Drug Allergies Allergy Verified 10/09/17 07:57 Medications: Current Medications Acetaminophen (Tylenol Er (8hr Arthritis Pain)) 650 mg PO BIDPRN PRN PRN Reason: pain/fever Acetaminophen (Tylenol) 650 mg PO Q4H PRN PRN Reason: Headache/Fever or Mild Pain Hydrocodone Bitart/Acetaminophen ([place] 5/325) 1 tab PO DAILYPRN PRN PRN Reason: Pain Al Hydroxide/Mg Hydroxide (Maalox) 15 ml PO Q4H PRN PRN Reason: Heartburn or Indigestion Albuterol/Ipratropium (Duoneb) 3 ml NEB Q6H PRN PRN Reason: SOB &/or Wheezing Artificial Tears (Tears Naturale) 0 drop EA EYE PRN PRN PRN Reason: Dry Eyes Aspirin (Aspirin Chewable) 81 mg PO [facility] Last Admin: 12/01/17 20:27 Dose: 81 mg Bisacodyl (Dulcolax) 10 mg [place] DAILYPRN PRN PRN Reason: Constipation Dextrose/Water (Dextrose 50%) 25 gm SLOW IVP PRN PRN PRN Reason: Hypoglycemia Diltiazem HCl (Cardizem Cd) 120 mg PO DAILY [facility] Last Admin: 12/02/17 07:57 Dose: 120 mg Docusate Sodium (Colace) 200 mg PO DAILY [facility] Last Admin: 12/02/17 07:57 Dose: 200 mg Furosemide (Lasix) 40 mg SLOW IVP 0600,1400 [facility] Last Admin: 12/02/17 05:16 Dose: 40 mg Gabapentin (Neurontin) 300 mg PO HS [facility] Last Admin: 12/01/17 20:27 Dose: 300 mg Glucagon (Glucagon) 1 mg IM PRN PRN PRN Reason: Hypoglycemia Guaifenesin (Robitussin Sf) 200 mg PO Q4H PRN PRN Reason: Cough Hydralazine HCl (Apresoline) 10 mg SLOW IVP Q4H PRN PRN Reason: Systolic BP > 180 Dextrose/Water (D5w) 1,000 mls @ 0 mls/hr IV .Q0M PRN; As Directed PRN Reason: Hypoglycemia Insulin Human Regular (Humulin R) 0 units [place] .MILD SLIDING SCALE PRN PRN Reason: Mild Correctional Scale Iron/Minerals/Multivitamins (Theragran M) 1 tab PO DAILY [facility] Last Admin: 12/02/17 07:57 Dose: 1 tab Loperamide HCl (Imodium) 2 mg PO PRN PRN PRN Reason: Diarrhea/Loose Stools Loratadine (Claritin) 10 mg PO DAILYPRN PRN PRN Reason: Sinus Symptoms Magnesium Hydroxide (Milk Of Magnesium) 30 ml PO DAILYPRN PRN PRN Reason: Constipation Metoprolol Succinate (Toprol Xl) 25 mg PO DAILY [facility] Last Admin: 12/02/17 07:57 Dose: 25 mg Mineral Oil/White Petrolatum (Eucerin Cream) 0 gm TOP BIDPRN PRN PRN Reason: Dry Skin Nitroglycerin (Nitrostat) 0.4 mg SL Q5MIN PRN PRN Reason: Chest Pain Ondansetron HCl (Zofran Odt) 4 mg PO Q6H PRN PRN Reason: Nausea/Vomiting Ondansetron HCl (Zofran) 4 mg IVP Q6H PRN PRN Reason: Nausea/Vomiting Pantoprazole Sodium (Protonix) 40 mg PO DAILY [facility] Last Admin: 12/02/17 07:57 Dose: 40 mg Phenol (Chloraseptic [place] 180 Ml Bot) 0 ml PO PRN PRN PRN Reason: Sore Throat Potassium Chloride (Klor-Con 10) 10 meq PO QA-[facility] Last Admin: 12/02/17 07:57 Dose: 10 meq Promethazine HCl (Phenergan) 12.5 mg PO Q6H PRN PRN Reason: Nausea Saccharomyces Boulardii (Florastor) 250 mg PO DAILY [facility] Last Admin: 12/02/17 07:57 Dose: 250 mg Sodium Chloride ([place] Nasal [place] 0.65%) 0 ml EA NARE QIDPRN PRN PRN Reason: Nasal Congestion Tamsulosin HCl (Flomax) 0.4 mg PO DAILY [facility] Last Admin: 12/02/17 07:57 Dose: 0.4 mg Temazepam (Restoril) 15 mg PO [facility] Last Admin: 12/01/17 20:27 Dose: 15 mg Tizanidine HCl (Zanaflex) 4 mg PO HS [facility] Last Admin: 12/01/17 20:27 Dose: 4 mg Triamterene/HCTZ (Maxzide-25) 1 tab PO DAILY [facility] Last Admin: 12/02/17 07:57 Dose: 1 tab
[2017-12-02 10:58] LABS: Potassium 3.2 mmol/L (3.5-5.1)
[2017-12-02] MEDS: tiZANidine HCl 4 MG TAB PO SCH (21:26)
[2017-12-02] MEDS: Gabapentin 300 MG CAP PO SCH (21:26)
[2017-12-02] MEDS: Temazepam 15 MG CAP PO SCH (21:26)
[2017-12-03] MEDS ORDERED: Potassium Chloride 20 MEQ TAB PO SCH (06:45)
[2017-12-03] MEDS: Saccharomyces boulardii 250 MG CAP PO SCH (08:38)
[2017-12-03] MEDS: Potassium Chloride 10 MEQ TAB PO SCH (08:38)
[2017-12-03] MEDS: Furosemide 40 MG/4 ML VIAL SLOW IVP SCH ×2 (08:38→13:28)
[2017-12-03] MEDS: Multivitamin W/ Minerals 1 TAB PO SCH (08:40)
[2017-12-03] MEDS: Docusate 100 MG CAP PO SCH (08:40)
[2017-12-03] MEDS: Tamsulosin HCl 0.4 MG CAP PO SCH (08:40)
[2017-12-03] MEDS: Triamterene/Hydrochlorothiazide 37.5 mg/25 mg Tablet PO SCH (08:40)
--- NOTE | 2017-12-03 09:03 | PDOC.PN ---
- Subjective Encounter Start Date: 12/03/17 Encounter Start Time: 07:20 Patient seen and examined for CHF. No new complaints. No overnight events - Objective MAR Reviewed: Yes Vital Signs & Weight: Vital Signs (12 hours) Temp Pulse Resp BP BP BP Pulse Ox 12/03/17 08:40 80 12/03/17 08:37 80 112/86 12/03/17 07:55 97.9 F 87 18 109/56 L 97 12/03/17 05:35 94/51 L 12/03/17 04:00 97.6 F 69 18 94 L 12/03/17 00:00 97.6 F 80 16 87/53 L 95 Weight Weight 173 lb 12.8 oz I&O: 12/02/17 12/03/17 12/04/17 06:59 06:59 06:59 Intake Total 1490 360 Output Total 2200 2075 Balance -922 -0918 Result Diagrams: 12/02/17 04:23 12/02/17 10:45 Additional Labs: Accuchecks 12/03/17 12/02/17 12/02/17 06:29 20:31 17:41 POC Glucose 111 H 138 H 139 H 12/02/17 10:57 POC Glucose 110 EKG Reviewed by me: Yes (nsr) Phys Exam - Physical Examination Constitutional: NAD HEENT: PERRLA, moist MMs, sclera anicteric Neck: no JVD, supple Respiratory: no wheezing, no rales, no rhonchi, clear to auscultation bilateral Cardiovascular: RRR, no significant murmur, no rub Gastrointestinal: soft, non-tender, no distention, positive bowel sounds Musculoskeletal: pulses present, edema present Neurological: non-focal, normal sensation, moves all 4 limbs Lymphatic: no nodes Psychiatric: normal affect, A&O x 3 Skin: no rash, normal turgor Dx/Plan (1) Acute on chronic diastolic ACC/AHA stage C congestive heart failure Code(s): I50.33 - ACUTE ON CHRONIC DIASTOLIC (CONGESTIVE) HEART FAILURE Status : Acute (2) Acute respiratory failure with hypoxia Code(s): J96.01 - ACUTE RESPIRATORY FAILURE WITH HYPOXIA Status: Acute (3) Anemia, normocytic normochromic Code(s): D64.9 - ANEMIA, UNSPECIFIED Status: Chronic (4) Anxiety and depression Code(s): F41.9 - ANXIETY DISORDER, UNSPECIFIED; F32.9 - MAJOR DEPRESSIVE DISORDER, SINGLE EPISODE, UNSPECIFIED Status: Chronic (5) BPH (benign prostatic hyperplasia) Code(s): N40.0 - BENIGN PROSTATIC HYPERPLASIA WITHOUT LOWER URINRY TRACT SYMP Status: Chronic (6) Diabetes type 2, controlled Code(s): E11.9 - TYPE 2 DIABETES MELLITUS WITHOUT COMPLICATIONS Status: Chronic (7) GERD (gastroesophageal reflux disease) Code(s): K21.9 - GASTRO-ESOPHAGEAL REFLUX DISEASE WITHOUT ESOPHAGITIS Status: Chronic (8) H/O leukemia Code(s): Z85.6 - PERSONAL HISTORY OF LEUKEMIA Status: Chronic (9) Obesity (BMI 30-39.9) Code(s): E66.9 - OBESITY, UNSPECIFIED Status: Chronic (10) Paroxysmal atrial fibrillation Code(s): I48.0 - PAROXYSMAL ATRIAL FIBRILLATION Status: Chronic (11) Peripheral neuropathy Code(s): G62.9 - POLYNEUROPATHY, UNSPECIFIED Status: Chronic (12) Hypokalemia Code(s): E87.6 - HYPOKALEMIA Status: Acute (13) Moderate tricuspid regurgitation Code(s): I07.1 - RHEUMATIC TRICUSPID INSUFFICIENCY Status: Acute (14) Pulmonary hypertension Code(s): I27.20 - PULMONARY HYPERTENSION, UNSPECIFIED Status: Acute - Plan cont current plan of care, respiratory therapy * today continue lasix * replace potassium * today wean off oxygen as tolerated * medication reviewed as below * symptomatic treatment * possible discharge tomorrow. Review of Systems - Review of Systems Eyes: negative: Pain, Vision Change, Conjunctivae Inflammation, Eyelid Inflammation, Redness, Other ENT: negative: Ear Pain, Ear Discharge, Nose Pain, Nose Discharge, Nose Congestion, Mouth Pain, Mouth Swelling, Throat Pain, Throat Swelling, Other Respiratory: negative: Cough, Dry, Shortness of Breath, Hemoptysis, SOB with Excertion, Pleuritic Pain, Sputum, Wheezing Cardiovascular: negative: chest pain, palpitations, orthopnea, paroxysmal nocturnal dyspnea, edema, light headedness, other Gastrointestinal: negative: Nausea, Vomiting, Abdominal Pain, Diarrhea, Constipation, Melena, Hematochezia, Other Genitourinary: negative: Dysuria, Frequency, Incontinence, Hematuria, Retention , Other Musculoskeletal: negative: Neck Pain, Shoulder Pain, Arm Pain, Back Pain, Hand Pain, Leg Pain, Foot Pain, Other Skin: negative: Rash, Lesions, Mark, Bruising, Other - Medications/Allergies Allergies/Adverse Reactions: Allergies Allergy/AdvReac Type Severity Reaction Status Date / Time No Known Drug Allergies Allergy Verified 10/09/17 07:57 Medications: Current Medications Acetaminophen (Tylenol Er (8hr Arthritis Pain)) 650 mg PO BIDPRN PRN PRN Reason: pain/fever Acetaminophen (Tylenol) 650 mg PO Q4H PRN PRN Reason: Headache/Fever or Mild Pain Hydrocodone Bitart/Acetaminophen ([place] 5/325) 1 tab PO DAILYPRN PRN PRN Reason: Pain Al Hydroxide/Mg Hydroxide (Maalox) 15 ml PO Q4H PRN PRN Reason: Heartburn or Indigestion Albuterol/Ipratropium (Duoneb) 3 ml NEB Q6H PRN PRN Reason: SOB &/or Wheezing Artificial Tears (Tears Naturale) 0 drop EA EYE PRN PRN PRN Reason: Dry Eyes Aspirin (Aspirin Chewable) 81 mg PO [facility] Last Admin: 12/02/17 21:26 Dose: 81 mg Bisacodyl (Dulcolax) 10 mg [place] DAILYPRN PRN PRN Reason: Constipation Dextrose/Water (Dextrose 50%) 25 gm SLOW IVP PRN PRN PRN Reason: Hypoglycemia Diltiazem HCl (Cardizem Cd) 120 mg PO DAILY [facility] Last Admin: 12/03/17 08:40 Dose: 120 mg Docusate Sodium (Colace) 200 mg PO DAILY [facility] Last Admin: 12/03/17 08:40 Dose: 200 mg Furosemide (Lasix) 40 mg SLOW IVP 0600,1400 [facility] Last Admin: 12/03/17 08:38 Dose: 40 mg Gabapentin (Neurontin) 300 mg PO [facility] Last Admin: 12/02/17 21:26 Dose: 300 mg Glucagon (Glucagon) 1 mg IM PRN PRN PRN Reason: Hypoglycemia Guaifenesin (Robitussin Sf) 200 mg PO Q4H PRN PRN Reason: Cough Hydralazine HCl (Apresoline) 10 mg SLOW IVP Q4H PRN PRN Reason: Systolic BP > 180 Dextrose/Water (D5w) 1,000 mls @ 0 mls/hr IV .Q0M PRN; As Directed PRN Reason: Hypoglycemia Insulin Human Regular (Humulin R) 0 units SC .MILD SLIDING SCALE PRN PRN Reason: Mild Correctional Scale Iron/Minerals/Multivitamins (Theragran M) 1 tab PO DAILY [facility] Last Admin: 12/03/17 08:40 Dose: 1 tab Loperamide HCl (Imodium) 2 mg PO PRN PRN PRN Reason: Diarrhea/Loose Stools Loratadine (Claritin) 10 mg PO DAILYPRN PRN PRN Reason: Sinus Symptoms Magnesium Hydroxide (Milk Of Magnesium) 30 ml PO DAILYPRN PRN PRN Reason: Constipation Metoprolol Succinate (Toprol Xl) 25 mg PO DAILY [facility] Last Admin: 12/03/17 08:40 Dose: 25 mg Mineral Oil/White Petrolatum (Eucerin Cream) 0 gm TOP BIDPRN PRN PRN Reason: Dry Skin Nitroglycerin (Nitrostat) 0.4 mg SL Q5MIN PRN PRN Reason: Chest Pain Ondansetron HCl (Zofran Odt) 4 mg PO Q6H PRN PRN Reason: Nausea/Vomiting Ondansetron HCl (Zofran) 4 mg IVP Q6H PRN PRN Reason: Nausea/Vomiting Pantoprazole Sodium (Protonix) 40 mg PO DAILY [facility] Last Admin: 12/03/17 08:40 Dose: 40 mg Phenol (Chloraseptic [place] 180 Ml Bot) 0 ml PO PRN PRN PRN Reason: Sore Throat Potassium Chloride ([facility]-Con 10) [facility] Last Admin: 12/03/17 08:38 Dose: 10 meq Promethazine HCl (Phenergan) 12.5 mg PO Q6H PRN PRN Reason: Nausea Saccharomyces Boulardii (Florastor) 250 mg PO DAILY [facility] Last Admin: 12/03/17 08:38 Dose: 250 mg Sodium Chloride ([place] Nasal [place] 0.65%) 0 ml EA NARE QIDPRN PRN PRN Reason: Nasal Congestion Tamsulosin HCl (Flomax) 0.4 mg PO DAILY [facility] Last Admin: 12/03/17 08:40 Dose: 0.4 mg Temazepam (Restoril) 15 mg PO [facility] Last Admin: 12/02/17 21:26 Dose: 15 mg Tizanidine HCl (Zanaflex) 4 mg PO HS [facility] Last Admin: 12/02/17 21:26 Dose: 4 mg Triamterene/HCTZ (Maxzide-25) 1 tab PO DAILY [facility] Last Admin: 12/03/17 08:40 Dose: 1 tab
[2017-12-03] MEDS: Gabapentin 300 MG CAP PO SCH (20:23)
[2017-12-03] MEDS: Temazepam 15 MG CAP PO SCH (20:24)
[2017-12-03] MEDS: tiZANidine HCl 4 MG TAB PO SCH (20:24)
[2017-12-04] MEDS: Furosemide 40 MG/4 ML VIAL SLOW IVP SCH ×2 (06:29→15:33)
[2017-12-04 07:52] LABS: Anion Gap 13 mmol/L (10-20); BUN (Urea Nitrogen) 15 mg/dL (8.4-25.7); Calc. Creatinine Clearance 87 mL/min (70-130); Calcium 9.8 mg/dL (7.8-10.44); Carbon Dioxide 32 mmol/L (23-31); Chloride 93 mmol/L (98-107); Estimated GFR-MDRD Greater than 90; Glucose 109 mg/dL (83-110); Potassium 3.5 mmol/L (3.5-5.1); Sodium 134 mmol/L (136-145)
--- NOTE | 2017-12-04 09:30 | RAD ---
CHEST 1 VIEW: Date: 12/04/17 COMPARISON: 11/30/17. HISTORY: Dyspnea. Congestive heart failure. FINDINGS: Normal cardiac silhouette. Pulmonary vessels and hilum are normal. Minimal blunting of both costophre sheree angles due to small effusion or atelectasis. Patchy interstitial opacities without consolidation or mass. No pneumothorax or osseous abnormalities. IMPRESSION: 1. Small bilateral pleural effusions. 2. Diminished lung volumes likely due to poor inspiratory effort. POS: [facility]
[2017-12-04] MEDS: Allopurinol 100 MG TAB PO SCH (10:16)
[2017-12-04] MEDS: Saccharomyces boulardii 250 MG CAP PO SCH (10:16)
[2017-12-04] MEDS: Apixaban 5 MG TAB PO SCH ×2 (10:17→20:44)
[2017-12-04] MEDS: Tamsulosin HCl 0.4 MG CAP PO SCH (10:18)
[2017-12-04] MEDS: Potassium Chloride 10 MEQ TAB PO SCH (10:18)
[2017-12-04] MEDS: Multivitamin W/ Minerals 1 TAB PO SCH (10:19)
[2017-12-04] MEDS: Docusate 100 MG CAP PO SCH (10:19)
[2017-12-04] MEDS: Triamterene/Hydrochlorothiazide 37.5 mg/25 mg Tablet PO SCH (10:26)
--- NOTE | 2017-12-04 10:34 | PDOC.PN ---
- Subjective Encounter Start Date: 12/04/17 Encounter Start Time: 07:20 Patient seen and examined. No new complaints. No overnight events - Objective MAR Reviewed: Yes Vital Signs & Weight: Vital Signs (12 hours) Temp Pulse Resp BP BP BP Pulse Ox 12/04/17 10:19 98 97/55 L 12/04/17 09:00 98.2 F 98 18 97/55 L 96 12/04/17 03:57 97.6 F 83 20 101/56 L 93 L 12/04/17 00:00 97.7 F 89 20 83/53 L 95 Weight Weight 174 lb I&O: 12/03/17 12/04/17 12/05/17 06:59 06:59 06:59 Intake Total 360 1020 Output Total 2075 2150 Balance -1715 -1130 Result Diagrams: 12/02/17 04:23 12/04/17 07:03 Additional Labs: Accuchecks 12/04/17 12/03/17 12/03/17 06:25 20:56 16:55 POC Glucose 133 H 145 H 136 H 12/03/17 10:42 POC Glucose 126 H EKG Reviewed by me: Yes Phys Exam - Physical Examination Constitutional: NAD HEENT: PERRLA, moist MMs, sclera anicteric Neck: no JVD, supple Respiratory: no wheezing, no rales, no rhonchi Cardiovascular: RRR, no significant murmur, no rub Gastrointestinal: soft, non-tender, no distention, positive bowel sounds Musculoskeletal: no edema, pulses present Neurological: non-focal, normal sensation Psychiatric: normal affect Skin: no rash, normal turgor Dx/Plan (1) Acute on chronic diastolic ACC/AHA stage C congestive heart failure Code(s): I50.33 - ACUTE ON CHRONIC DIASTOLIC (CONGESTIVE) HEART FAILURE Status : Acute (2) Acute respiratory failure with hypoxia Code(s): J96.01 - ACUTE RESPIRATORY FAILURE WITH HYPOXIA Status: Acute (3) Anemia, normocytic normochromic Code(s): D64.9 - ANEMIA, UNSPECIFIED Status: Chronic (4) Anxiety and depression Code(s): F41.9 - ANXIETY DISORDER, UNSPECIFIED; F32.9 - MAJOR DEPRESSIVE DISORDER, SINGLE EPISODE, UNSPECIFIED Status: Chronic (5) BPH (benign prostatic hyperplasia) Code(s): N40.0 - BENIGN PROSTATIC HYPERPLASIA WITHOUT LOWER URINRY TRACT SYMP Status: Chronic (6) Diabetes type 2, controlled Code(s): E11.9 - TYPE 2 DIABETES MELLITUS WITHOUT COMPLICATIONS Status: Chronic (7) GERD (gastroesophageal reflux disease) Code(s): K21.9 - GASTRO-ESOPHAGEAL REFLUX DISEASE WITHOUT ESOPHAGITIS Status: Chronic (8) H/O leukemia Code(s): Z85.6 - PERSONAL HISTORY OF LEUKEMIA Status: Chronic (9) Obesity (BMI 30-39.9) Code(s): E66.9 - OBESITY, UNSPECIFIED Status: Chronic (10) Paroxysmal atrial fibrillation Code(s): I48.0 - PAROXYSMAL ATRIAL FIBRILLATION Status: Chronic (11) Peripheral neuropathy Code(s): G62.9 - POLYNEUROPATHY, UNSPECIFIED Status: Chronic (12) Hypokalemia Code(s): E87.6 - HYPOKALEMIA Status: Acute (13) Moderate tricuspid regurgitation Code(s): I07.1 - RHEUMATIC TRICUSPID INSUFFICIENCY Status: Acute (14) Pulmonary hypertension Code(s): I27.20 - PULMONARY HYPERTENSION, UNSPECIFIED Status: Acute - Plan cont current plan of care * CT angio chest to rule out PE * wean oxygen off * monitor vitals * medication reviewed as below * symptomatic treatment * continue lasix. Review of Systems - Review of Systems Eyes: negative: Pain, Vision Change, Conjunctivae Inflammation, Eyelid Inflammation, Redness, Other ENT: negative: Ear Pain, Ear Discharge, Nose Pain, Nose Discharge, Nose Congestion, Mouth Pain, Mouth Swelling, Throat Pain, Throat Swelling, Other Respiratory: negative: Cough, Dry, Shortness of Breath, Hemoptysis, SOB with Excertion, Pleuritic Pain, Sputum, Wheezing Cardiovascular: negative: chest pain, palpitations, orthopnea, paroxysmal nocturnal dyspnea, edema, light headedness, other Gastrointestinal: negative: Nausea, Vomiting, Abdominal Pain, Diarrhea, Constipation, Melena, Hematochezia, Other Genitourinary: negative: Dysuria, Frequency, Incontinence, Hematuria, Retention , Other Musculoskeletal: negative: Neck Pain, Shoulder Pain, Arm Pain, Back Pain, Hand Pain, Leg Pain, Foot Pain, Other - Medications/Allergies Allergies/Adverse Reactions: Allergies Allergy/AdvReac Type Severity Reaction Status Date / Time No Known Drug Allergies Allergy Verified 10/09/17 07:57 Medications: Current Medications Acetaminophen (Tylenol Er (8hr Arthritis Pain)) 650 mg PO BIDPRN PRN PRN Reason: pain/fever Acetaminophen (Tylenol) 650 mg PO Q4H PRN PRN Reason: Headache/Fever or Mild Pain Hydrocodone Bitart/Acetaminophen ([place] 5/325) 1 tab PO DAILYPRN PRN PRN Reason: Pain Al Hydroxide/Mg Hydroxide (Maalox) 15 ml PO Q4H PRN PRN Reason: Heartburn or Indigestion Albuterol/Ipratropium (Duoneb) 3 ml NEB Q6H PRN PRN Reason: SOB &/or Wheezing Allopurinol (Zyloprim) 100 mg PO DAILY [facility] Last Admin: 12/04/17 10:16 Dose: 100 mg Apixaban (Eliquis) 5 mg PO BID [facility] Last Admin: 12/04/17 10:17 Dose: 5 mg Artificial Tears (Tears Naturale) 0 drop EA EYE PRN PRN PRN Reason: Dry Eyes Aspirin (Aspirin Chewable) 81 mg PO [facility] Last Admin: 12/03/17 20:23 Dose: 81 mg Bisacodyl (Dulcolax) 10 mg [place] DAILYPRN PRN PRN Reason: Constipation Dextrose/Water (Dextrose 50%) 25 gm SLOW IVP PRN PRN PRN Reason: Hypoglycemia Diltiazem HCl (Cardizem Cd) 120 mg PO DAILY [facility] Last Admin: 12/04/17 10:19 Dose: 120 mg Docusate Sodium (Colace) 200 mg PO DAILY [facility] Last Admin: 12/04/17 10:19 Dose: 200 mg Furosemide (Lasix) 40 mg SLOW IVP 0600,1400 [facility] Last Admin: 12/04/17 06:29 Dose: 40 mg Gabapentin (Neurontin) 300 mg PO HS [facility] Last Admin: 12/03/17 20:23 Dose: 300 mg Glucagon (Glucagon) 1 mg IM PRN PRN PRN Reason: Hypoglycemia Guaifenesin (Robitussin Sf) 200 mg PO Q4H PRN PRN Reason: Cough Hydralazine HCl (Apresoline) 10 mg SLOW IVP Q4H PRN PRN Reason: Systolic BP > 180 Dextrose/Water (D5w) 1,000 mls @ 0 mls/hr IV .Q0M PRN; As Directed PRN Reason: Hypoglycemia Insulin Human Regular (Humulin R) 0 units [place] .MILD SLIDING SCALE PRN PRN Reason: Mild Correctional Scale Iron/Minerals/Multivitamins (Theragran M) 1 tab PO DAILY [facility] Last Admin: 12/04/17 10:19 Dose: 1 tab Loperamide HCl (Imodium) 2 mg PO PRN PRN PRN Reason: Diarrhea/Loose Stools Loratadine (Claritin) 10 mg PO DAILYPRN PRN PRN Reason: Sinus Symptoms Magnesium Hydroxide (Milk Of Magnesium) 30 ml PO DAILYPRN PRN PRN Reason: Constipation Metoprolol Succinate (Toprol Xl) 25 mg PO DAILY [facility] Last Admin: 12/04/17 10:27 Dose: Not Given Mineral Oil/White Petrolatum (Eucerin Cream) 0 gm TOP BIDPRN PRN PRN Reason: Dry Skin Nitroglycerin (Nitrostat) 0.4 mg SL Q5MIN PRN PRN Reason: Chest Pain Ondansetron HCl (Zofran Odt) 4 mg PO Q6H PRN PRN Reason: Nausea/Vomiting Ondansetron HCl (Zofran) 4 mg IVP Q6H PRN PRN Reason: Nausea/Vomiting Pantoprazole Sodium (Protonix) 40 mg PO DAILY [facility] Last Admin: 12/04/17 10:16 Dose: 40 mg Phenol (Chloraseptic [place] 180 Ml Bot) 0 ml PO PRN PRN PRN Reason: Sore Throat Potassium Chloride (Klor-Con 10) 10 meq PO QAM-WM [facility] Last Admin: 12/04/17 10:18 Dose: 10 meq Promethazine HCl (Phenergan) 12.5 mg PO Q6H PRN PRN Reason: Nausea Saccharomyces Boulardii (Florastor) 250 mg PO DAILY [facility] Last Admin: 12/04/17 10:16 Dose: 250 mg Sodium Chloride ([place] Nasal [place] 0.65%) 0 ml EA NARE QIDPRN PRN PRN Reason: Nasal Congestion Sodium Chloride (Flush - Normal Saline) 10 ml IVF Q12HR [facility] Last Admin: 12/04/17 10:20 Dose: 10 ml Sodium Chloride (Flush - Normal Saline) 10 ml IVF PRN PRN PRN Reason: Saline Flush Tamsulosin HCl (Flomax) 0.4 mg PO DAILY [facility] Last Admin: 12/04/17 10:18 Dose: 0.4 mg Temazepam (Restoril) 15 mg PO HS [facility] Last Admin: 12/03/17 20:24 Dose: 15 mg Tizanidine HCl (Zanaflex) 4 mg PO [facility] Last Admin: 12/03/17 20:24 Dose: 4 mg Triamterene/HCTZ (Maxzide-25) 1 tab PO DAILY [facility] Last Admin: 12/04/17 10:26 Dose: Not Given
[2017-12-04 10:36] LABS: Band 6 % (5-11); Eosinophils 2 % (0-10); Hemoglobin 10.7 g/dL (14.0-18.0); Lymphocytes 25 % (21-51); MDiff Complete? YES; Mean Corpuscular HGB CONC 30.7 g/dL (32.0-36.0); Mean Corpuscular Volume 84.6 fL (78.0-98.0); Mean Platelet Volume 9.1 fL (7.4-10.4); Monocytes 27 % (0-10); Neutrophil 39 % (42-75); Platelet Count 163 thou/uL (130-400); Polychromasia SLIGHT = 2-3 cells (100X) (0-2/hpf); RBC Distribution Width 20.3 % (11.5-14.5); RBC Morphology Normal; Red Blood Cell (RBC) Count 4.14 mill/uL (4.70-6.10); White Blood Cell (WBC) Count 3.1 thou/uL (4.8-10.8)
[2017-12-04] MEDS ORDERED: Sodium Chloride 0.9% 10 ML ONE (12:41)
[2017-12-04] MEDS ORDERED: Iopamidol 370 76% 100 ML VIAL ONE (13:06)
--- NOTE | 2017-12-04 13:58 | CT ---
CTA CHEST: Date: 12/04/17 HISTORY: Hypoxia. TECHNIQUE: Contrast enhanced CTA of the chest performed. 2D and 3D reconstructed images performed on an [employer] 3D workstation. FINDINGS: Images demonstrate small bilateral pleural effusions. Bibasilar areas of consolidation also seen comp atible with bibasilar pneumonia. Coronary artery calcifications seen. No evidence of filling defects seen in the pulmonary arteries to suggest pulmonary emboli. A tiny per icardial effusion is present. There appears to be some mild lymphadenopathy in the aortopulmonary window, as well as in the right a nd left paratracheal region, and minimally in the subcarinal region. The significance of these mildly enlarged lymph nodes is unknown. IMPRESSION: 1. Some superior and mid mediastinal mild lymphadenopathy. 2. Bilateral pleural effusions. 3. Bibasilar consolidation. 4. No evidence of pulmonary emboli. POS: [facility]
[2017-12-04] MEDS: Gabapentin 300 MG CAP PO SCH (20:44)
[2017-12-04] MEDS: Cefdinir 300 MG CAP PO SCH (20:44)
[2017-12-04] MEDS: tiZANidine HCl 4 MG TAB PO SCH (20:45)
[2017-12-04] MEDS: Temazepam 15 MG CAP PO SCH (20:45)
[2017-12-05] MEDS: Furosemide 40 MG/4 ML VIAL SLOW IVP SCH (05:11)
[2017-12-05] MEDS ORDERED: Furosemide 20 MG TAB PO SCH (09:00)
[2017-12-05] MEDS: Tamsulosin HCl 0.4 MG CAP PO SCH (09:01)
[2017-12-05] MEDS: Multivitamin W/ Minerals 1 TAB PO SCH (09:02)
[2017-12-05] MEDS: Allopurinol 100 MG TAB PO SCH (09:02)
[2017-12-05] MEDS: Saccharomyces boulardii 250 MG CAP PO SCH (09:02)
[2017-12-05] MEDS: Furosemide 40 MG TAB PO SCH ×2 (09:02→16:05)
[2017-12-05] MEDS: Potassium Chloride 10 MEQ TAB PO SCH ×2 (09:02→17:31)
[2017-12-05] MEDS: Docusate 100 MG CAP PO SCH (09:03)
[2017-12-05] MEDS: Cefdinir 300 MG CAP PO SCH (09:03)
[2017-12-05] MEDS: Apixaban 5 MG TAB PO SCH (09:03)
--- NOTE | 2017-12-05 10:28 | PDOC.PN ---
- Subjective Encounter Start Date: 12/05/17 Encounter Start Time: 07:20 Patient seen and examined. No new complaints. No overnight events - Objective MAR Reviewed: Yes Vital Signs & Weight: Vital Signs (12 hours) Temp Pulse Resp BP BP Pulse Ox 12/05/17 09:02 88 108/60 12/05/17 08:00 97.1 F L 88 18 108/60 93 L 12/05/17 04:00 97.6 F 79 18 107/59 L 94 L 12/05/17 00:00 97.5 F L 75 18 100/58 L 96 Weight Weight 169 lb 1.6 oz I&O: 12/04/17 12/05/17 12/06/17 06:59 06:59 06:59 Intake Total 1020 960 Output Total 2150 3200 Balance -1130 -2240 Result Diagrams: 12/04/17 07:03 12/04/17 07:03 Additional Labs: Accuchecks 12/05/17 12/04/17 12/04/17 06:03 20:12 17:13 POC Glucose 120 H 159 H 162 H 12/04/17 12:19 POC Glucose 130 H EKG Reviewed by me: Yes (nsr) Phys Exam - Physical Examination Constitutional: NAD HEENT: PERRLA, moist MMs, sclera anicteric Neck: no JVD, supple Respiratory: no wheezing, no rales, no rhonchi Cardiovascular: RRR, no rub SM+ Gastrointestinal: soft, non-tender, no distention, positive bowel sounds Musculoskeletal: no edema, pulses present Neurological: non-focal, normal sensation, moves all 4 limbs Lymphatic: no nodes Psychiatric: normal affect, A&O x 3 Skin: no rash, normal turgor Dx/Plan (1) Acute on chronic diastolic ACC/AHA stage C congestive heart failure Code(s): I50.33 - ACUTE ON CHRONIC DIASTOLIC (CONGESTIVE) HEART FAILURE Status : Acute (2) Acute respiratory failure with hypoxia Code(s): J96.01 - ACUTE RESPIRATORY FAILURE WITH HYPOXIA Status: Acute (3) Anemia, normocytic normochromic Code(s): D64.9 - ANEMIA, UNSPECIFIED Status: Chronic (4) Anxiety and depression Code(s): F41.9 - ANXIETY DISORDER, UNSPECIFIED; F32.9 - MAJOR DEPRESSIVE DISORDER, SINGLE EPISODE, UNSPECIFIED Status: Chronic (5) BPH (benign prostatic hyperplasia) Code(s): N40.0 - BENIGN PROSTATIC HYPERPLASIA WITHOUT LOWER URINRY TRACT SYMP Status: Chronic (6) Diabetes type 2, controlled Code(s): E11.9 - TYPE 2 DIABETES MELLITUS WITHOUT COMPLICATIONS Status: Chronic (7) GERD (gastroesophageal reflux disease) Code(s): K21.9 - GASTRO-ESOPHAGEAL REFLUX DISEASE WITHOUT ESOPHAGITIS Status: Chronic (8) H/O leukemia Code(s): Z85.6 - PERSONAL HISTORY OF LEUKEMIA Status: Chronic (9) Obesity (BMI 30-39.9) Code(s): E66.9 - OBESITY, UNSPECIFIED Status: Chronic (10) Paroxysmal atrial fibrillation Code(s): I48.0 - PAROXYSMAL ATRIAL FIBRILLATION Status: Chronic (11) Peripheral neuropathy Code(s): G62.9 - POLYNEUROPATHY, UNSPECIFIED Status: Chronic (12) Hypokalemia Code(s): E87.6 - HYPOKALEMIA Status: Acute (13) Moderate tricuspid regurgitation Code(s): I07.1 - RHEUMATIC TRICUSPID INSUFFICIENCY Status: Acute (14) Pulmonary hypertension Code(s): I27.20 - PULMONARY HYPERTENSION, UNSPECIFIED Status: Acute - Plan cont current plan of care, continue antibiotics * medication reviewed as below * symptomatic treatment * see discharge summery Review of Systems - Review of Systems Eyes: negative: Pain, Vision Change, Conjunctivae Inflammation, Eyelid Inflammation, Redness, Other ENT: negative: Ear Pain, Ear Discharge, Nose Pain, Nose Discharge, Nose Congestion, Mouth Pain, Mouth Swelling, Throat Pain, Throat Swelling, Other Respiratory: negative: Cough, Dry, Shortness of Breath, Hemoptysis, SOB with Excertion, Pleuritic Pain, Sputum, Wheezing Cardiovascular: negative: chest pain, palpitations, orthopnea, paroxysmal nocturnal dyspnea, edema, light headedness, other Gastrointestinal: negative: Nausea, Vomiting, Abdominal Pain, Diarrhea, Constipation, Melena, Hematochezia, Other Genitourinary: negative: Dysuria, Frequency, Incontinence, Hematuria, Retention , Other Musculoskeletal: negative: Neck Pain, Shoulder Pain, Arm Pain, Back Pain, Hand Pain, Leg Pain, Foot Pain, Other - Medications/Allergies Allergies/Adverse Reactions: Allergies Allergy/AdvReac Type Severity Reaction Status Date / Time No Known Drug Allergies Allergy Verified 10/09/17 07:57 Medications: Current Medications Acetaminophen (Tylenol Er (8hr Arthritis Pain)) 650 mg PO BIDPRN PRN PRN Reason: pain/fever Acetaminophen (Tylenol) 650 mg PO Q4H PRN PRN Reason: Headache/Fever or Mild Pain Hydrocodone Bitart/Acetaminophen ([place] 5/325) 1 tab PO DAILYPRN PRN PRN Reason: Pain Al Hydroxide/Mg Hydroxide (Maalox) 15 ml PO Q4H PRN PRN Reason: Heartburn or Indigestion Albuterol/Ipratropium (Duoneb) 3 ml NEB Q6H PRN PRN Reason: SOB &/or Wheezing Allopurinol (Zyloprim) 100 mg PO DAILY [facility] Last Admin: 12/05/17 09:02 Dose: 100 mg Apixaban (Eliquis) 5 mg PO BID [facility] Last Admin: 12/05/17 09:03 Dose: 5 mg Artificial Tears (Tears Naturale) 0 drop EA EYE PRN PRN PRN Reason: Dry Eyes Aspirin (Aspirin Chewable) 81 mg PO HS [facility] Last Admin: 12/04/17 20:44 Dose: 81 mg Bisacodyl (Dulcolax) 10 mg [place] DAILYPRN PRN PRN Reason: Constipation Cefdinir (Omnicef) 300 mg PO BID [facility] Last Admin: 12/05/17 09:03 Dose: 300 mg Dextrose/Water (Dextrose 50%) 25 gm SLOW IVP PRN PRN PRN Reason: Hypoglycemia Diltiazem HCl (Cardizem Cd) 120 mg PO DAILY [facility] Last Admin: 12/05/17 09:02 Dose: 120 mg Docusate Sodium (Colace) 200 mg PO DAILY [facility] Last Admin: 12/05/17 09:03 Dose: 200 mg Furosemide (Lasix) 40 mg PO 0900,1400 [facility] Last Admin: 12/05/17 09:02 Dose: 40 mg Gabapentin (Neurontin) 300 mg PO HS [facility] Last Admin: 12/04/17 20:44 Dose: 300 mg Glucagon (Glucagon) 1 mg IM PRN PRN PRN Reason: Hypoglycemia Guaifenesin (Robitussin Sf) 200 mg PO Q4H PRN PRN Reason: Cough Hydralazine HCl (Apresoline) 10 mg SLOW IVP Q4H PRN PRN Reason: Systolic BP > 180 Dextrose/Water (D5w) 1,000 mls @ 0 mls/hr IV .Q0M PRN; As Directed PRN Reason: Hypoglycemia Insulin Human Regular (Humulin R) 0 units SC .MILD SLIDING SCALE PRN PRN Reason: Mild Correctional Scale Iron/Minerals/Multivitamins (Theragran M) 1 tab PO DAILY [facility] Last Admin: 12/05/17 09:02 Dose: 1 tab Loperamide HCl (Imodium) 2 mg PO PRN PRN PRN Reason: Diarrhea/Loose Stools Loratadine (Claritin) 10 mg PO DAILYPRN PRN PRN Reason: Sinus Symptoms Magnesium Hydroxide (Milk Of Magnesium) 30 ml PO DAILYPRN PRN PRN Reason: Constipation Metoprolol Succinate (Toprol Xl) 25 mg PO DAILY [facility] Last Admin: 12/05/17 09:05 Dose: Not Given Mineral Oil/White Petrolatum (Eucerin Cream) 0 gm TOP BIDPRN PRN PRN Reason: Dry Skin Nitroglycerin (Nitrostat) 0.4 mg SL Q5MIN PRN PRN Reason: Chest Pain Ondansetron HCl (Zofran Odt) 4 mg PO Q6H PRN PRN Reason: Nausea/Vomiting Ondansetron HCl (Zofran) 4 mg IVP Q6H PRN PRN Reason: Nausea/Vomiting Pantoprazole Sodium (Protonix) 40 mg PO DAILY [facility] Last Admin: 12/05/17 09:03 Dose: 40 mg Phenol (Chloraseptic [place] 180 Ml Bot) 0 ml PO PRN PRN PRN Reason: Sore Throat Potassium Chloride (Klor-Con 10) 10 meq PO BID-[facility] Last Admin: 12/05/17 09:02 Dose: 10 meq Promethazine HCl (Phenergan) 12.5 mg PO Q6H PRN PRN Reason: Nausea Saccharomyces Boulardii (Florastor) 250 mg PO DAILY [facility] Last Admin: 12/05/17 09:02 Dose: 250 mg Sodium Chloride (Goehner Nasal [place] 0.65%) 0 ml EA NARE QIDPRN PRN PRN Reason: Nasal Congestion Sodium Chloride (Flush - Normal Saline) 10 ml IVF Q12HR [facility] Last Admin: 12/05/17 09:03 Dose: 10 ml Sodium Chloride (Flush - Normal Saline) 10 ml IVF PRN PRN PRN Reason: Saline Flush Tamsulosin HCl (Flomax) 0.4 mg PO DAILY [facility] Last Admin: 12/05/17 09:01 Dose: 0.4 mg Temazepam (Restoril) 15 mg PO HS [facility] Last Admin: 12/04/17 20:45 Dose: 15 mg Tizanidine HCl (Zanaflex) 4 mg PO HS [facility] Last Admin: 12/04/17 20:45 Dose: 4 mg
--- NOTE | 2017-12-05 12:11 | DIS ---
DATE OF ADMISSION: 11/30/2017 DATE OF DISCHARGE: 12/05/2017 PRIMARY CARE PHYSICIAN: Dr. Liv Castellano. DISCHARGE DISPOSITION: Home with home oxygen. PRIMARY DISCHARGE DIAGNOSES: 1. Acute on chronic diastolic congestive heart failure. 2. Acute respiratory failure with hypoxia. 3. Hyperuricemia. 4. Hypokalemia. 5. Moderate tricuspid regurgitation. 6. Paroxysmal atrial fibrillation with rapid ventricular response. SECONDARY DISCHARGE DIAGNOSES: 1. Peripheral neuropathy. 2. Paroxysmal atrial fibrillation. 3. Obesity with BMI 32. 4. History of leukemia. 5. Gastroesophageal reflux disease. 6. Diabetes type 2. 7. Benign enlargement of prostate. 8. Anxiety and depression. 9. Anemia normocytic normochromic. 10. Pulmonary hypertension. 11. Chronic diastolic heart failure. PRIMARY PROCEDURE AND OPERATION: None. RADIOLOGICAL INVESTIGATION: Chest x-ray on admission showed bilateral pleural effusion, atelectasis. Echocardiography showed EF 50%-55%, moderate tricuspid regurgitation, moderate pulmonary hypertensi on. CT angio negative for pulmonary embolism and showed nonspecific lymphadenopathy. Chest x-ray sh owed bilateral pleural effusion. SIGNIFICANT LABORATORY DATA: WBC 3.1, hemoglobin 10.7, platelet 163, sodium 134, creatinine 0.72. B CALL [employer] 263.1. Cardiac enzymes negative. LFT normal. DISCHARGE MEDICATIONS: Tylenol Arthritis 650 mg p.o. b.i.d. p.r.n., allopurinol 100 mg p.o. daily, E liquis 5 mg p.o. b.i.d., aspirin 81 mg p.o. at bedtime, Omnicef 300 mg p.o. b.i.d., Cardizem-CD 120 m g p.o. b.i.d., Colace 200 mg p.o. daily, Lasix 40 mg p.o. b.i.d., gabapentin 300 mg p.o. at bedtime, [place] 5 one tablet q.6 hourly p.r.n., Toprol-XL 25 mg p.o. daily, Zofran 4 mg q.12 hours p.r.n., Prot diogo 40 mg p.o. daily, potassium chloride 10 mEq p.o. b.i.d., Phenergan 12.5 mg q.6 hours p.r.n., Ildefonso rastor 250 mg p.o. daily, Flomax 0.4 mg p.o. daily, Restoril 15 mg p.o. at bedtime, Zanaflex 4 mg p.o . at bedtime. CONTRAINDICATIONS: None. CODE STATUS: FULL CODE. INPATIENT CONSULTANTS: None. ALLERGIES: No known drug allergy. DISCHARGE PLAN: Post hospital, the patient will follow up with primary care physician in 1 week. HOSPITAL COURSE: An 82-year-old male with above-mentioned medical problem who was admitted by Dr. Jez Brown. The patient presented to the emergency room with increasing shortness of breath. He was h aving bilateral lower extremity edema, bilateral pleural effusions. He was having hypoxic respirator y failure. He was also having atrial fibrillation with rapid ventricular response. He was admitted to [facility]. He was treated with IV Lasix. He had significant improvement. His orthopnea and lower ext remity edema was improving. Upon stabilization with atrial fibrillation, we transferred him to telem ry floor where we continued with the diuresis therapy. The patient developed hypotension and he was still hypoxic and that is why we were worried about pulm onary embolism and that is why we did CT angio and it was negative for pulmonary embolism. The patie nt's edema significantly improved. His BNP is better than before. He is requiring home oxygen. For his oxygen saturation on room air and exertion less than 88% and that is why we are arranging home o xygen today. Overall, the patient had clinical improvement in his CHF, but we are also treating for suspected pneu monia because of report of bibasilar consolidation on CT angio. We prescribed Omnicef for 7 days and we increased Lasix to 40 mg b.i.d. Potassium supplementation was done while in hospital. Patient i s doing overall well. His atrial fibrillation is under control. He is given prescription for Eliqui s for anticoagulation for his stroke prophylaxis. The patient is seen and examined at bedside today. Discharge medication reconciliation done. Please see my progress note from today for further details. Total time spent on discharge day was 31 minutes.
[2017-12-05 13:11] LABS: Anion Gap 11 mmol/L (10-20); BUN (Urea Nitrogen) 14 mg/dL (8.4-25.7); Calc. Creatinine Clearance 87 mL/min (70-130); Calcium 9.6 mg/dL (7.8-10.44); Carbon Dioxide 34 mmol/L (23-31); Chloride 93 mmol/L (98-107); Estimated GFR-MDRD Greater than 90; Glucose 135 mg/dL (83-110); Magnesium 1.9 mg/dL (1.6-2.6); Sodium 135 mmol/L (136-145)
[2017-12-05 13:16] LABS: Potassium 2.9 mmol/L (3.5-5.1)
[2017-12-05] MEDS ORDERED: Potassium Chloride 20 MEQ in Premix Bag 1 BAG IVPB SCH (13:45)
[2017-12-05] MEDS ORDERED: Potassium Chloride 20 MEQ TAB PO SCH (13:45)
[2017-12-05 17:20] VITALS: BP 113/58; TEMP 98.2
[2017-12-05] MEDS ORDERED: Potassium Chloride 20 MEQ TAB PO PRN (18:01)
[2017-12-05 18:37] LABS: Potassium 4.1 mmol/L (3.5-5.1)
== END 2017-12-05 20:19 | disposition home or self-care (01) | DRG 291 ==
LOC: ERS 19:15 → IMCU/EMU 21:07 → 2NO 12-02 12:19
PROVIDERS: ADMIT Family Medicine; ATTEND Family Medicine
DX: I11.0 Hypertensive heart disease with heart failure (principal); J96.01 Acute respiratory failure with hypoxia; J98.11 Atelectasis; I50.33 Acute on chronic diastolic (congestive) heart failure; Z99.81 Dependence on supplemental oxygen; E87.6 Hypokalemia; I07.1 Rheumatic tricuspid insufficiency; I48.0 Paroxysmal atrial fibrillation; E11.42 Type 2 diabetes mellitus with diabetic polyneuropathy; E66.9 Obesity, unspecified; Z68.32 Body mass index [BMI] 32.0-32.9, adult; Z85.6 Personal history of leukemia; K21.9 Gastro-esophageal reflux disease without esophagitis; N40.0 Benign prostatic hyperplasia without lower urinary tract symptoms; F41.9 Anxiety disorder, unspecified; F32.9 Major depressive disorder, single episode, unspecified; D64.9 Anemia, unspecified; I27.20 Pulmonary hypertension, unspecified; R59.1 Generalized enlarged lymph nodes; E11.65 Type 2 diabetes mellitus with hyperglycemia
CPT/HCPCS: 36415; 36416; 71045; 71275; 80048; 80053; 82550; 82553; 83735; 83880; 84484; 84550; 85025; 93005; 93306; 93798; 94760; 96374; A4216; J1940; J3480

== ENCOUNTER 2018-01-02 11:48 | Inpatient (IN) | payer MEDICARE, OTHER ==
[2018-01-02] MEDS ORDERED: HUM PROTHROMBIN CPLX(PCC)4FACT 2,000 UNIT in Admixture Fee 1 EACH IV SCH (12:45)
[2018-01-02 12:55] LABS: PTT 50.8 SEC (22.9-36.1)
[2018-01-02 12:56] LABS: INR-International Normal Ratio 1.8; Prothrombin Time 20.9 SEC (12.0-14.7)
[2018-01-02] MEDS ORDERED: Acetaminophen 325 MG TAB ONE (13:14)
--- NOTE | 2018-01-02 13:16 | CT ---
CT CERVICAL SPINE PERFORMED WITHOUT CONTRAST ENHANCEMENT: HISTORY: Neck pain. status post fall. FINDINGS: The bones appear demineralized. The vertebral bodies maintain normal height. There is moderate disk narrowing at the C5-C6 and C6-C7 levels. There are fairly pronounced degenerative facet changes. The facets do appear to be in normal alignment. There is no significant canal or foraminal narrowing demonstrated. No CT evidence for fracture. The lung apices are clear. Of incidental note is what appears to be a nodule involving the inferior-mos t aspect of the left lobe of the thyroid gland. IMPRESSION: No CT evidence of fracture of the cervical spine. POS: [facility]
[2018-01-02] MEDS ORDERED: Mag-Al 1200 mg/1200 mg/30 ML UDCUP PO PRN (13:40)
[2018-01-02] MEDS ORDERED: Milk Of Magnesia 30 ML UDCUP PO PRN (13:40)
[2018-01-02] MEDS ORDERED: Docusate 100 MG CAP PO PRN (13:40)
[2018-01-02] MEDS ORDERED: Bisacodyl 10 MG SUPP PR PRN (13:40)
[2018-01-02] MEDS ORDERED: Promethazine HCl 25 MG/ML VIAL IM/IV PRN (13:44)
[2018-01-02 14:11] LABS: Hemoglobin 10.8 g/dL (14.0-18.0); Mean Corpuscular HGB CONC 32.1 g/dL (32.0-36.0); Mean Corpuscular Hemoglobin 27.5 pg (27.0-31.0); Mean Corpuscular Volume 85.5 fL (78.0-98.0); Mean Platelet Volume 11.6 fL (7.4-10.4); Platelet Count 236 thou/uL (130-400); RBC Distribution Width 19.5 % (11.5-14.5); Red Blood Cell (RBC) Count 3.94 mill/uL (4.70-6.10); White Blood Cell (WBC) Count 6.2 thou/uL (4.8-10.8)
[2018-01-02 14:21] LABS: Anisocytosis SLIGHT = 6-15 cells (100X) (0-5/hpf); Band 15 % (5-11); Eosinophils 2 % (0-10); Large Platelets SLIGHT; Lymphocytes 15 % (21-51); MDiff Complete? YES; Monocytes 14 % (0-10); Neutrophil 50 % (42-75); PLT Morphology Comment Appears Adequate; Polychromasia SLIGHT = 2-3 cells (100X) (0-2/hpf)
[2018-01-02 14:23] LABS: Anion Gap 14 mmol/L (10-20); BUN (Urea Nitrogen) 12 mg/dL (8.4-25.7); Calc. Creatinine Clearance 0 mL/min (70-130); Calcium 9.2 mg/dL (7.8-10.44); Carbon Dioxide 23 mmol/L (23-31); Chloride 102 mmol/L (98-107); Estimated GFR-MDRD Greater than 90; Glucose 129 mg/dL (83-110); Potassium 3.8 mmol/L (3.5-5.1); Sodium 135 mmol/L (136-145)
[2018-01-02 14:24] LABS: INR-International Normal Ratio 1.5; PTT 46.2 SEC (22.9-36.1); Prothrombin Time 18.2 SEC (12.0-14.7)
--- NOTE | 2018-01-02 14:37 | CON ---
DATE OF CONSULTATION: 01/02/2018 This is a 50-minute initial patient consult in which greater than 50% of the exam was spent counselin g and coordinating patient's care. The remainder of the exam was spent in review of the patient's mo dical records and appropriate imaging studies. CHIEF COMPLAINT: Status post fall with large left-sided subdural hematoma. HISTORY OF PRESENT ILLNESS: Mr. Mcclellan is a pleasant 82-year-old male who presents to [facility] Room for the above complaints. Apparently, the patient was walking in a parking lot yesterday and tripped and fell directly on the left side of his face. He was seen by [facility] for headache, but then represented to [place] [facility] today with his daughter and gra nddaughter for complaints of headache as well as increased confusion. The patient normally lives ind ependently and is a very high functioning 82-year-old however, given his lethargy, confusion and apha matti, was brought to the emergency room. He is currently on 81 mg aspirin and Eliquis for atrial fibr illation. He has no complaints of neck pain. He has a previous right shoulder injury which has left the right upper extremity weak; however, he denies weakness. He does not typically use a cane or a walker when at home. Review of patient's head CT shows a very large subdural hematoma in the left wi th a slight amount of midline shift. There was also some hemorrhage along the falx. Review of the p bandar's cervical spine CT is negative for acute fracture. PHYSICAL EXAMINATION: The patient is resting comfortably and keeps his eyes closed during the exam. He is oriented to person, but not place or time. This is unusual for him according to his family. He is unable to define an island or correctly identify a pen. GCS currently is 14. He is easily arou sable and when attempting to test vision appears to have blurred vision as when I hold up 3 fingers h e says there is 1 and when I hold up 1 finger he says there are 2. He is able to follow commands in all 4 extremities. He does appear to be mild to moderately weak into the right upper and right lower extremity, worse in the right upper extremity. This is baseline according to patient's daughter, as he has had some right shoulder issues. He does have some right-sided pronator drift. Pupils are eq ual, round, and reactive bilaterally. He does have superficial hematomas throughout the nose, eye an d chin on the left consistent with his fall. There is no tenderness to palpation into the cervical s pine. He has no neck pain. ASSESSMENT AND PLAN: Status post fall with left-sided subdural hematoma on Eliquis and aspirin for a trial fibrillation. PLAN: I have discussed the patient's case and imaging with Dr. Garza. At this time, we would like to order some Kcentra given the fact that the patient's INR is 1.8. We may need to consider giving h im fresh frozen plasma as well. We would like to avoid any type of neurosurgical intervention and wi ll continue to very closely monitor his neurologic exam. He will be placed in CCU and with q.1 hour neuro checks as well as q.1 hour vital signs. Head of bed should be elevated at 30 degrees. We will followup on a repeat coag panel once he has received his Kcentra in the ER. We will also plan to re peat a head CT later this afternoon, but again we will continue to monitor his neurologic status. I did discuss the possibility of surgery with the patient and his family and they understand that at th is time, we do not want to subject him to a needless surgery; however, should his neurologic status d ecline, we may need to consider urgent surgical intervention. Please call with any changes in paticharlotte t's neurologic status. Otherwise, we will follow up in the next several hours with the above testing .
[2018-01-02] MEDS: Sodium Chloride 0.9% 1,000 ML IV SCH (14:45)
[2018-01-02] MEDS ORDERED: cloNIDine 0.1 MG TAB PO PRN (15:11)
[2018-01-02] MEDS ORDERED: Loratadine 10 MG TAB PO PRN (15:11)
[2018-01-02] MEDS ORDERED: Diabetic Tussin 200 MG/10 ML UDCUP PO PRN (15:11)
[2018-01-02] MEDS ORDERED: Benzonatate 100 MG CAP PO PRN (15:11)
[2018-01-02] MEDS ORDERED: HumaLOG 300 UNITS/3 ML VIAL SC PRN ×2 (15:11)
[2018-01-02] MEDS ORDERED: Nitroglycerin 0.4 MG TAB (25 Tab Bottle) SL PRN (15:11)
[2018-01-02] MEDS ORDERED: hydrALAZINE 20 MG/ML VIAL SLOW IVP PRN (15:11)
[2018-01-02] MEDS ORDERED: Dextrose 50% Abboject 50 ML SYRINGE SLOW IVP PRN (15:11)
[2018-01-02] MEDS ORDERED: Dextrose 5% in Water 1,000 ML IV PRN (15:11)
[2018-01-02] MEDS ORDERED: Ondansetron HCl/PF 4 MG/2 ML Vial IVP PRN (15:11)
--- NOTE | 2018-01-02 16:09 | PDOC.PN ---
- Subjective Encounter Start Date: 01/02/18 Encounter Start Time: 16:07 Subjective: seen & examined.admitted by NS service for fall & large SDH -: PCP-Dr. Castellano.IM team consulted for medical managemnet -: c/o L sided rib cage pain upper chest - Objective MAR Reviewed: Yes Vital Signs & Weight: Most Recent Monitor Data Heart Rate from ECG 98 NIBP 127/68 NIBP BP-Mean 98 Respiration from ECG 19 SpO2 96 Result Diagrams: 01/02/18 13:58 01/02/18 13:54 Additional Labs: Laboratory Tests 12/04/17 01/02/18 01/02/18 07:03 10:18 13:58 Hgb 10.7 L 10.4 L 10.8 L labs reviewed Phys Exam - Physical Examination Constitutional: NAD HEENT: PERRLA, moist MMs, sclera anicteric, oral pharynx no lesions left vanita-orbital and perinasal bruise Neck: no nodes, no JVD, supple, full ROM Respiratory: no wheezing, no rales, no rhonchi, clear to auscultation bilateral Cardiovascular: no significant murmur, irregular Gastrointestinal: soft, non-tender, no distention, positive bowel sounds Musculoskeletal: no edema, pulses present TTP left ant chest along 2/3rd rib medially Neurological: non-focal, normal sensation, moves all 4 limbs Psychiatric: normal affect, A&O x 3 Skin: no rash Dx/Plan (1) Subdural hematoma Code(s): S06.5X9A - TRAUM SUBDR HEM W LOC OF UNSP DURATION, INIT Status: Acute Comment: s/p KCentra X1 (2) Chronic anticoagulation Code(s): Z79.01 - SENIOR LIVING (CURRENT) USE OF ANTICOAGULANTS Status: Acute Comment: Put eliquis on hold (3) Chronic stage c diastolic heart failure Code(s): I50.32 - CHRONIC DIASTOLIC (CONGESTIVE) HEART FAILURE Status: Acute (4) Moderate tricuspid regurgitation Code(s): I07.1 - RHEUMATIC TRICUSPID INSUFFICIENCY Status: Acute (5) Pulmonary hypertension Code(s): I27.20 - PULMONARY HYPERTENSION, UNSPECIFIED Status: Acute (6) Anemia, normocytic normochromic Code(s): D64.9 - ANEMIA, UNSPECIFIED Status: Chronic (7) Diabetes type 2, controlled Code(s): E11.9 - TYPE 2 DIABETES MELLITUS WITHOUT COMPLICATIONS Status: Chronic (8) GERD (gastroesophageal reflux disease) Code(s): K21.9 - GASTRO-ESOPHAGEAL REFLUX DISEASE WITHOUT ESOPHAGITIS Status: Chronic (9) H/O leukemia Code(s): Z85.6 - PERSONAL HISTORY OF LEUKEMIA Status: Chronic (10) Paroxysmal atrial fibrillation Code(s): I48.0 - PAROXYSMAL ATRIAL FIBRILLATION Status: Chronic (11) Peripheral neuropathy Code(s): G62.9 - POLYNEUROPATHY, UNSPECIFIED Status: Chronic - Plan plan discussed w/ family, PT/OT, DVT proph w/SCDs Frequent neurochecks. Brain Ct w/b repeated per primary team -: hold eliqis fo rnow .will need cardiolgy eval for care home AC -: poor candidate for meterman Anticoagulation -: restart lasix w Klor con but hold antihypertensives as BP marginal -: check rib xray to r/o fracture * .monitor H/H * am labs * IM team will follow Review of Systems - Review of Systems Constitutional: weakness, malaise. negative: fever, chills, sweats, other ENT: negative: Ear Pain, Ear Discharge, Nose Pain, Nose Discharge, Nose Congestion, Mouth Pain, Mouth Swelling, Throat Pain, Throat Swelling, Other Respiratory: negative: Cough, Dry, Shortness of Breath, Hemoptysis, SOB with Excertion, Pleuritic Pain, Sputum, Wheezing Cardiovascular: chest pain. negative: palpitations, orthopnea, paroxysmal nocturnal dyspnea, edema, light headedness, other Gastrointestinal: negative: Nausea, Vomiting, Abdominal Pain, Diarrhea, Constipation, Melena, Hematochezia, Other Genitourinary: negative: Dysuria, Frequency, Incontinence, Hematuria, Retention , Other Musculoskeletal: negative: Neck Pain, Shoulder Pain, Arm Pain, Back Pain, Hand Pain, Leg Pain, Foot Pain, Other Skin: negative: Rash, Lesions, Mark, Bruising, Other Neurological: negative: Weakness, Numbness, Incoordination, Change in Speech, Confusion, Seizures, Other - Medications/Allergies Allergies/Adverse Reactions: Allergies Allergy/AdvReac Type Severity Reaction Status Date / Time No Known Drug Allergies Allergy Verified 10/09/17 07:57 Medications: Current Medications Acetaminophen (Tylenol) 650 mg PO Q6H PRN PRN Reason: Fever > 101 or Headache Al Hydroxide/Mg Hydroxide (Maalox) 30 ml PO QIDPRN PRN PRN Reason: Dyspepsia Benzonatate (Tessalon) 100 mg PO Q4H PRN PRN Reason: Cough Bisacodyl (Dulcolax) 10 mg [place] DAILYPRN PRN PRN Reason: Constipation Clonidine (Catapres) 0.1 mg PO Q4H PRN PRN Reason: Systolic BP > 170 Dextrose/Water (Dextrose 50%) 25 gm SLOW IVP PRN PRN PRN Reason: Hypoglycemia Docusate Sodium (Colace) 100 mg PO BIDPRN PRN PRN Reason: Constipation Furosemide (Lasix) 40 mg PO ONE DAX Glucagon (Glucagon) 1 mg IM PRN PRN PRN Reason: Hypoglycemia Guaifenesin (Robitussin Sf) 200 mg PO Q4H PRN PRN Reason: Cough Hydralazine HCl (Apresoline) 10 mg SLOW IVP Q4H PRN PRN Reason: Systolic BP > 180 Prothrombin Complex Concent ( Human) 2,000 unit/Miscellaneous Medication mls @ 0 mls/hr IV INF DAX PRN Reason: As Directed Sodium Chloride (Normal Saline 0.9%) 1,000 mls @ 80 mls/hr IV .[id number] [facility] Last Admin: 01/02/18 14:45 Dose: 1,000 mls Dextrose/Water (D5w) 1,000 mls @ 0 mls/hr IV .Q0M PRN; As Directed PRN Reason: Hypoglycemia Insulin Human Lispro (Humalog) 0 units SC .MODERATE SLIDING SC PRN PRN Reason: Moderate Correctional Scale Insulin Human Lispro (Humalog) 0 units SC .BEDTIME SLIDING SC PRN PRN Reason: Bedtime Correctional Scale Loratadine (Claritin) 10 mg PO DAILYPRN PRN PRN Reason: Sinus Symptoms Magnesium Hydroxide (Milk Of Magnesium) 30 ml PO BIDPRN PRN PRN Reason: Constipation Nitroglycerin (Nitrostat) 0.4 mg SL Q5MIN PRN PRN Reason: Chest Pain Ondansetron HCl (Zofran) 4 mg IVP Q6H PRN PRN Reason: Nausea/Vomiting Potassium Chloride (K-Dur) 40 meq PO QAM-[facility] Potassium Chloride (Klor-Con) 20 meq PO DAILY DAX Potassium Chloride (Klor-Con) 20 meq PO ONE DAX Promethazine HCl (Phenergan) 12.5 mg IM/IV Q6H PRN PRN Reason: Nausea/Vomiting Sodium Chloride (Flush - Normal Saline) 10 ml IVF PRN PRN PRN Reason: Saline Flush
[2018-01-02] MEDS ORDERED: Furosemide 20 MG TAB PO SCH (16:15)
[2018-01-02] MEDS: Acetaminophen 325 MG TAB PO PRN (16:53)
--- NOTE | 2018-01-02 17:33 | RAD ---
CHEST ONE VIEW 01/02/18 COMPARISON: 12/04/17. HISTORY: Pain. Fall. FINDINGS: Normal cardiac silhouette. Pulmonary vessels and pulmonary hilum are normal. Costophrenic angles are clear. Lung volumes continue to be diminished, likely due to poor inspiratory effort. No consolidatio n or mass. No pneumothorax. Chronic changes in both shoulders. IMPRESSION: No acute cardiopulmonary process. POS: [facility]
[2018-01-02] MEDS: Metoprolol Tartrate 25 MG TAB PO SCH (20:07)
[2018-01-03] MEDS: Sodium Chloride 0.9% 1,000 ML IV SCH (02:05)
[2018-01-03 07:27] LABS: INR-International Normal Ratio 1.6; PTT 49.8 SEC (22.9-36.1); Prothrombin Time 19.2 SEC (12.0-14.7)
[2018-01-03] MEDS ORDERED: Potassium Chloride 20 MEQ TAB PO SCH (08:00)
[2018-01-03] MEDS: Metoprolol Tartrate 25 MG TAB PO SCH ×2 (09:08→21:43)
--- NOTE | 2018-01-03 09:48 | CT ---
PRELIMINARY REPORT/[facility]/EMERGENTY AFTER-HOURS PROCEDURE CT Head Without Intravenous Contrast CLINICAL HISTORY: 82 years old, male; cerebral aneurysm; F/U left SDH TECHNIQUE: Axial computed tomography images of the head/brain without intravenous contrast. COMPARISON: No relevant prior studies available. FINDINGS: Brain: Subarachnoid blood within the left sylvian fissure and left temporal-parietal lobe cortical [place] lcal markings. Left rbmaazz-wrslodkt-ulkervpv-occipital subdural hematoma (15 mm greatest transverse thickness in the left temporal and left occipital regions). Associated left parasagittal interhemisph olya subdural hematoma with greatest transverse thickness of 16 mm with extension along the left tent orium as well. Left cerebral hemisphere edema. No significant white matter disease. Midline shift: Midline shift mxyu-bi-edsba of 5 mm. Ventricles: Unremarkable. No ventriculomegaly. Bones/joints: Unremarkable. No acute fracture. Soft tissues: Unremarkable. Sinuses: Right sphenoid sinusitis. Partial ethmoid sinusitis. Mastoid air cells: Left otomastoiditis. No right mastoiditis. IMPRESSION: 1. Please note that no prior CT head examination was provided for comparison. 2. Subarachnoid blood within the left sylvian fissure and left temporal-parietal lobe cortical sulcal markings. 3. Left rqepklu-suqjgecv-vxdclyut-occipital subdural hematoma (15 mm greatest transverse thickness in the left temporal and left occipital regions). Associated left parasagittal interhemispheric subdura l hematoma with greatest transverse thickness of 16 mm with extension along the left tentorium as well. 4. Midline shift feyf-if-pfaff of 5 mm. 5. Left cerebral hemisphere edema. 6. Left otomastoiditis. Thank you for allowing us to participate in the care of your patient. Dictated and Authenticated by: Jerardo Unger MD 01/03/2018 5:20 AM Central Time ([place] & [place]) FINAL REPORT CT HEAD NONCONTRAST: COMPARISON: Reference is made to 01/02/18. Agree with the preliminary interpretation provided above. When referencing to the examination from previous day, there has been interval increase in volume of subdural blood along the posterior aspect of the interhemispheric falx, and overlying the left occipi paty lobe. Slight increase in width of the left convexity subdural hematoma also noted, 9 mm, compare d to 5 mm on the prior exam. The degree of rightward subfalcine herniation, at level of septum pellu cidum, has slightly increased, 6 mm, compared to 4 mm in a similar location on prior exam. Findings of progressive cerebral edema of the left cerebral hemisphere. Scattered subarachnoid hemorrhage remains. POS: [facility]
[2018-01-03 10:06] LABS: Hemoglobin 9.8 g/dL (14.0-18.0)
--- NOTE | 2018-01-03 13:34 | PDOC.PN ---
- Subjective Encounter Start Date: 01/03/18 Encounter Start Time: 13:33 Subjective: neurological status unchanged,confusion & expressive aphasia -: care discussed w daughter at bedside. - Objective MAR Reviewed: Yes Vital Signs & Weight: Vital Signs (12 hours) Temp Pulse Resp BP Pulse Ox 01/03/18 10:54 96 128/67 01/03/18 08:00 98.7 F 111 H 24 H 94 L 01/03/18 07:00 98.7 F 01/03/18 03:00 97.9 F Weight Weight 177 lb 0.499 oz Most Recent Monitor Data Heart Rate from ECG 103 NIBP 153/74 NIBP BP-Mean 105 Respiration from ECG 29 SpO2 96 I&O: 01/02/18 01/03/18 01/04/18 06:59 06:59 06:59 Intake Total 1181 Output Total 1400 640 Balance -219 -640 Result Diagrams: 01/03/18 06:55 01/02/18 13:54 Additional Labs: Accuchecks 01/03/18 01/03/18 01/02/18 12:53 06:09 20:09 POC Glucose 118 H 141 H 129 H 01/02/18 17:31 POC Glucose 141 H Laboratory Tests 01/02/18 01/02/18 01/03/18 10:18 13:58 06:55 Hgb 10.4 L 10.8 L 9.8 L labs reviewed Phys Exam - Physical Examination Constitutional: NAD awake and follows simple commands HEENT: PERRLA, moist MMs, sclera anicteric, oral pharynx no lesions extensive Left vanita-orbital & perinasal bruising Neck: no nodes, no JVD, supple, full ROM Respiratory: no wheezing, no rales, no rhonchi Cardiovascular: no significant murmur, irregular Gastrointestinal: soft, non-tender, no distention, positive bowel sounds Musculoskeletal: no edema, pulses present Neurological: moves all 4 limbs Psychiatric: normal affect Skin: no rash, normal turgor, cap refill <2 seconds Dx/Plan (1) Subdural hematoma Code(s): S06.5X9A - TRAUM SUBDR HEM W LOC OF UNSP DURATION, INIT Status: Acute Comment: s/p KCentra X1 01/02 and FFP today 01/03 (2) Chronic anticoagulation Code(s): Z79.01 - WEB MARKETING ASSISTANT (CURRENT) USE OF ANTICOAGULANTS Status: Acute Comment: Put eliquis on hold (3) Chronic stage c diastolic heart failure Code(s): I50.32 - CHRONIC DIASTOLIC (CONGESTIVE) HEART FAILURE Status: Acute Comment: resume lasix from tomorrow.Also on IVF per primary team.Monitor fluid balance carefully. (4) Moderate tricuspid regurgitation Code(s): I07.1 - RHEUMATIC TRICUSPID INSUFFICIENCY Status: Chronic (5) Pulmonary hypertension Code(s): I27.20 - PULMONARY HYPERTENSION, UNSPECIFIED Status: Chronic (6) Anemia, normocytic normochromic Code(s): D64.9 - ANEMIA, UNSPECIFIED Status: Chronic (7) Diabetes type 2, controlled Code(s): E11.9 - TYPE 2 DIABETES MELLITUS WITHOUT COMPLICATIONS Status: Chronic (8) GERD (gastroesophageal reflux disease) Code(s): K21.9 - GASTRO-ESOPHAGEAL REFLUX DISEASE WITHOUT ESOPHAGITIS Status: Chronic (9) H/O leukemia Code(s): Z85.6 - PERSONAL HISTORY OF LEUKEMIA Status: Chronic (10) Paroxysmal atrial fibrillation Code(s): I48.0 - PAROXYSMAL ATRIAL FIBRILLATION Status: Chronic Comment: Resume BB and CCB with parameters for BP (11) Peripheral neuropathy Code(s): G62.9 - POLYNEUROPATHY, UNSPECIFIED Status: Chronic - Plan plan discussed w/ family, PT/OT, respiratory therapy, incentive spirometry, DVT proph w/SCDs Restart CCB today as still tachycardic.BB restarted yesterday.Eliquis held -: monitor H/H. -: medical manangement of SAH & SDH.monitor for complications. Daily CT brain -: advance diet and Stop IVF given potential for fluid overload -: am labs.IM team will follow * . Review of Systems - Review of Systems Other: can not be reliably obtained due to confusion - Medications/Allergies Allergies/Adverse Reactions: Allergies Allergy/AdvReac Type Severity Reaction Status Date / Time No Known Drug Allergies Allergy Verified 10/09/17 07:57 Medications: Current Medications Acetaminophen (Tylenol) 650 mg PO Q6H PRN PRN Reason: Fever > 101 or Headache Last Admin: 01/02/18 16:53 Dose: 650 mg Al Hydroxide/Mg Hydroxide (Maalox) 30 ml PO QIDPRN PRN PRN Reason: Dyspepsia Benzonatate (Tessalon) 100 mg PO Q4H PRN PRN Reason: Cough Bisacodyl (Dulcolax) 10 mg AL DAILYPRN PRN PRN Reason: Constipation Clonidine (Catapres) 0.1 mg PO Q4H PRN PRN Reason: Systolic BP > 170 Dextrose/Water (Dextrose 50%) 25 gm SLOW IVP PRN PRN PRN Reason: Hypoglycemia Diltiazem HCl (Cardizem Cd) 120 mg PO DAILY [facility] Last Admin: 01/03/18 10:54 Dose: 120 mg Docusate Sodium (Colace) 100 mg PO BIDPRN PRN PRN Reason: Constipation Furosemide (Lasix) 40 mg PO DAILY [facility] Glucagon (Glucagon) 1 mg IM PRN PRN PRN Reason: Hypoglycemia Guaifenesin (Robitussin Sf) 200 mg PO Q4H PRN PRN Reason: Cough Hydralazine HCl (Apresoline) 10 mg SLOW IVP Q4H PRN PRN Reason: Systolic BP > 180 Sodium Chloride (Normal Saline 0.9%) 1,000 mls @ 80 mls/hr IV .[id number] [facility] Last Admin: 01/03/18 02:05 Dose: 1,000 mls Dextrose/Water (D5w) 1,000 mls @ 0 mls/hr IV .Q0M PRN; As Directed PRN Reason: Hypoglycemia Levetiracetam 250 mg/ Sodium (Chloride) 102.5 mls @ 205 mls/hr IVPB 0900,2100 [facility] Insulin Human Lispro (Humalog) 0 units SC .MODERATE SLIDING SC PRN PRN Reason: Moderate Correctional Scale Insulin Human Lispro (Humalog) 0 units SC .BEDTIME SLIDING SC PRN PRN Reason: Bedtime Correctional Scale Loratadine (Claritin) 10 mg PO DAILYPRN PRN PRN Reason: Sinus Symptoms Magnesium Hydroxide (Milk Of Magnesium) 30 ml PO BIDPRN PRN PRN Reason: Constipation Metoprolol Tartrate (Lopressor) 12.5 mg PO BID [facility] Last Admin: 01/03/18 09:08 Dose: 12.5 mg Nitroglycerin (Nitrostat) 0.4 mg SL Q5MIN PRN PRN Reason: Chest Pain Ondansetron HCl (Zofran) 4 mg IVP Q6H PRN PRN Reason: Nausea/Vomiting Potassium Chloride (K-Dur) 40 meq PO QAM-WM [facility] Last Admin: 01/03/18 09:09 Dose: 40 meq Potassium Chloride (Klor-Con) 20 meq PO QAM-WM [facility] Promethazine HCl (Phenergan) 12.5 mg IM/IV Q6H PRN PRN Reason: Nausea/Vomiting Sodium Chloride (Flush - Normal Saline) 10 ml IVF PRN PRN PRN Reason: Saline Flush
[2018-01-04 04:06] LABS: Hemoglobin 10.1 g/dL (14.0-18.0)
[2018-01-04 04:32] LABS: Anion Gap 13 mmol/L (10-20); BUN (Urea Nitrogen) 12 mg/dL (8.4-25.7); Calc. Creatinine Clearance 106 mL/min (70-130); Calcium 9.2 mg/dL (7.8-10.44); Carbon Dioxide 22 mmol/L (23-31); Chloride 103 mmol/L (98-107); Estimated GFR-MDRD Greater than 90; Glucose 137 mg/dL (83-110); Potassium 3.7 mmol/L (3.5-5.1); Sodium 134 mmol/L (136-145)
[2018-01-04 09:00] LABS: Hemoglobin 10.1 g/dL (14.0-18.0); Mean Corpuscular Hemoglobin 27.8 pg (27.0-31.0); Mean Corpuscular Volume 84.1 fL (78.0-98.0); Mean Platelet Volume 11.1 fL (7.4-10.4); Platelet Count 237 thou/uL (130-400); RBC Distribution Width 19.2 % (11.5-14.5); Red Blood Cell (RBC) Count 3.62 mill/uL (4.70-6.10); White Blood Cell (WBC) Count 8.7 thou/uL (4.8-10.8)
--- NOTE | 2018-01-04 09:00 | CON ---
DATE OF CONSULTATION: 01/03/2018 HISTORY OF PRESENT ILLNESS: Mr. Mcclellan is a gentleman who is on Eliquis and aspirin and fell, striking his face. He was identified on CT of his brain yesterday at 10:00 in the morning. He is having subdural bleeding over the left hemisphere from front to back with swelling of the left cerebral hemisphere and compression of the left lateral ventricle. Metallic foreign body was seen in his left forehead. CT was repeated today showing interval increase in the volume of subdural blood with an increase in the of the shift. He has been followed by Neurosurgery. He knows his name but does not know where is and has an expressive difficulty with speech. PAST MEDICAL HISTORY: 1. Remarkable for diastolic dysfunction. 2. History of pulmonary hypertension with a negative scan for thromboembolic disease. 3. History of atrial fibrillation. 4. History of obesity. It is unclear whether or not he has ever had a sleep study as part of his workup of his pulmonary hypertension. 5. Peripheral neuropathy. 6. Reflux disease. 7. History of leukemia, reportedly. 8. History of benign prostatic hypertrophy. 9. History of anemia, presumably of chronic disease. PAST SURGICAL HISTORY: Remarkable for an appendectomy, history of craniotomy in the past, history of right shoulder surgery, history of a tonsillectomy, history of anxiety and depression. SOCIAL HISTORY: He is nonsmoker, nondrinker, does not use drugs. FAMILY HISTORY: Reviewing old records with multiple hospitalizations and ER visits this year have been reviewed. No history of lung disease in early age. Not obtainable accurately. REVIEW OF SYSTEMS: 10 point system review completed, otherwise negative. ALLERGIES: He has no reported drug allergies. MEDICATIONS: Earlier this year, he was on Lasix, Cardizem, Flomax, metoprolol, tizanidine, omeprazole, temazepam, gabapentin, potassium and aspirin. According to one of the old notes in October of this year. 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 His peripheral smear has not shown a review on the recent ones have a lymphocyte predominance. Reviewing records, he has been in this hospital monthly since September. No visits here prior to September. PHYSICAL EXAMINATION: GENERAL: He is currently in no distress. VITAL SIGNS: Blood pressure 133/63, heart rate 102, respiratory rates in the low 20s, oximetry is 96%. His ecchymoses over the tip of his nose and around his left eye. NECK: His neck is nontender. He does not have any cervical lymphadenopathy. LUNGS: Clear at this time. HEART: Regular rhythm, no S3. There is a grade 2/6 systolic murmur. ABDOMEN: Soft and nontender. EXTREMITIES: Without clubbing, cyanosis, or edema. He moves all 4 extremities and awakens quickly, but has difficulty with speech as per Neurosurgery's documentation. HEENT: pupils are equal. IMPRESSION: Subdural hematoma after a fall while anticoagulated. PLAN: Neurosurgery does not feel he needs surgery at this time. He is protecting his airway adequately and will remain in the Critical Care Unit. This is a 70-minute consult greater than 50% of the time was spent on unit coordinating care in the ICU. RONALDO
[2018-01-04 09:08] LABS: INR-International Normal Ratio 1.6; PTT 49.2 SEC (22.9-36.1); Prothrombin Time 19.3 SEC (12.0-14.7)
[2018-01-04] MEDS: Pantoprazole 40 MG GRANULES PACKET PO SCH (09:30)
[2018-01-04] MEDS: Furosemide 40 MG TAB PO SCH (09:30)
[2018-01-04 09:51] LABS: Band 10 % (5-11); Eosinophils 1 % (0-10); Giant Platelets SLIGHT; Large Platelets MARKED; Lymphocytes 8 % (21-51); MDiff Complete? YES; Monocytes 38 % (0-10); Myelocyte 1 % (0-0); Neutrophil 42 % (42-75); PLT Morphology Comment Appears Adequate; Polychromasia MODERATE = 3-4 cells (100X) (0-2/hpf)
[2018-01-04] MEDS: Metoprolol Tartrate 25 MG TAB PO SCH ×2 (10:03→20:20)
--- NOTE | 2018-01-04 10:31 | PDOC.PN ---
- Subjective Encounter Start Date: 01/04/18 Encounter Start Time: 10:29 Mr. Mcclellan was seen today in follow-up of subdural hematoma. He is still aphasic. He has some right sided weakness, mostly in his right leg. - Objective MAR Reviewed: Yes Vital Signs & Weight: Vital Signs (12 hours) Temp Pulse Resp Pulse Ox 01/04/18 09:30 94 01/04/18 08:00 98.8 F 94 22 H 35 L 01/04/18 04:00 98.7 F 01/04/18 00:00 98.8 F Weight Weight 173 lb 8.061 oz Most Recent Monitor Data Heart Rate from ECG 98 NIBP 113/70 NIBP BP-Mean 74 Respiration from ECG 23 SpO2 95 I&O: 01/03/18 01/04/18 01/05/18 06:59 06:59 06:59 Intake Total 1181 1240 240 Output Total 1400 1750 220 Balance -219 -510 20 Result Diagrams: 01/04/18 08:51 01/04/18 03:30 Additional Labs: Accuchecks 01/03/18 01/03/18 22:46 12:53 POC Glucose 142 H 118 H Phys Exam - Physical Examination HEENT: PERRLA Respiratory: no wheezing, no rales, no rhonchi, clear to auscultation bilateral Cardiovascular: RRR, no significant murmur, no rub Gastrointestinal: soft, non-tender, positive bowel sounds Musculoskeletal: no edema + aphasia, with right sided weakness Dx/Plan (1) Subdural hematoma Code(s): S06.5X9A - TRAUM SUBDR HEM W LOC OF UNSP DURATION, INIT Status: Acute Comment: s/p KCentra X1 01/02 and FFP today 01/03 (2) BPH (benign prostatic hyperplasia) Code(s): N40.0 - BENIGN PROSTATIC HYPERPLASIA WITHOUT LOWER URINRY TRACT SYMP Status: Chronic (3) Diabetes type 2, controlled Code(s): E11.9 - TYPE 2 DIABETES MELLITUS WITHOUT COMPLICATIONS Status: Chronic (4) GERD (gastroesophageal reflux disease) Code(s): K21.9 - GASTRO-ESOPHAGEAL REFLUX DISEASE WITHOUT ESOPHAGITIS Status: Chronic (5) Paroxysmal atrial fibrillation Code(s): I48.0 - PAROXYSMAL ATRIAL FIBRILLATION Status: Chronic Comment: Resume BB and CCB with parameters for BP (6) Pulmonary hypertension Code(s): I27.20 - PULMONARY HYPERTENSION, UNSPECIFIED Status: Chronic - Plan * Acute subdural Hematoma- continue conservative management * History of Paroxysmal AFIB- his heart rate is controlled * DM- blood glucose is stable * Continue to monitor in the ICU * Close monitoring of electrolytes.
[2018-01-04] MEDS ORDERED: Phytonadione 5 MG in Sodium Chloride 0.9% 50 ML IVPB SCH (10:45)
--- NOTE | 2018-01-04 11:20 | PRG ---
DATE OF SERVICE: 01/04/2018 This is a 15 minute subsequent visit note in which 15 minutes were spent in review of the imaging, re cord, evaluation, examination of patient, and formulation of a plan. Greater than 50% of the time wa s spent in counseling. Mr. Mcclellan today is alert. He does appear to be overall more fatigued. He, however, is alert and he does follow commands. While he has right-sided weakness, he is able to bend at the knee and hip and at the elbow. His right shoulder pain limits his right arm movement, but again I obviously suspect john archuleta does have right-sided weakness. He remains answering questions at times appropriately, but also di soriented. Again, however, he is alert. What I would like to do is continue to monitor him. We did give him 2 units of FFP yesterday. His INR remains at 1.6 again today. I do not think it is necess skip to continue to pursue trying to correct this with the exception of we will give him 5 mg of vitam in K. We will continue to follow him closely.
--- NOTE | 2018-01-04 12:42 | PRG ---
DATE OF SERVICE: 01/04/2018 Mr. Mcclellan still has an expressive aphasia. PHYSICAL EXAMINATION: VITAL SIGNS: Blood pressure is 113/64, heart rate 99, respiratory rate is 22, oximetry is 94. LUNGS: Clear. HEART: Regular rhythm. ABDOMEN: Abdomen is soft. EXTREMITIES: Without asymmetry. Moves all 4 extremities on command, not consistently. He spontaneo usly moves all 4 extremities. I could not get him to hold up 2 fingers to command on either hand. LABORATORY DATA: White count 8.7, hemoglobin 10.1, platelets 237. Sodium 134, potassium 3.7, chloride 103, bicarbonate 22, BUN 12, creatinine 0.6. IMPRESSION: Subdural hematoma associated with a fall on anticoagulation. PLAN: Continue serial exams and observation in the Critical Care Unit. I would not recommend moving him out of Critical Care Unit at this time.
--- NOTE | 2018-01-04 13:02 | PRG ---
DATE OF SERVICE: 01/03/2018 This is a 30-minute initial hospital visit note in which 30 minutes were spent in review the imaging, record, evaluation and examination of the patient, and formulation of a plan. Greater than 50% of t he time was spent in counseling on Kera Mcclellan. CHIEF COMPLAINT: Left acute subdural hematoma with mass effect and midline shift. HISTORY OF PRESENT ILLNESS: I reviewed the notes of my colleague Derick Francois PA-C, and agree its content. Mr. Mcclellan is an 82-year-old man, who has dementia, but is otherwise fairly high functionin g. He takes aspirin and Eliquis. He fell 2 days ago and due to neurologic decline, was seen in the ER and left convexity and falcine subdural hematoma with mild midline shift and moderate mass effect was identified. We have reversed his coagulopathy with Kcentra and we have given him FFP to maintain an INR less than 1.5. While he has had periods of drowsiness this morning, he is alert, he is confu sed, but at time not oriented. He is able to answer questions appropriately. He moves his left uppe r and left lower extremity without deficit. His right upper extremity and right lower extremity are weak; however, he is quite limited in his right shoulder due to rotator cuff pathology. I did suspec t a right-sided weakness is obviously due to his left-sided subdural. IMPRESSION AND PLAN: 1. At this point, what I would like to do is correct his coagulopathy and continue to monitor him. H e has been stable the last couple days and actually looks as if he is improving as he is alert today. Obviously, should he decline, we can always up for surgery, but I think at this point we should con tinue to monitor the patient and emphasized rehabilitation. obviously as well with being off of anti platelet and anticoagulant medications perhaps in a couple weeks should be subdural hematoma liquifie d to be more of a chronic we could evacuate this should it be necessary with carolee holes and isidra id craniotomy at his age. 2. Acute subdural hematoma.
[2018-01-05 04:36] LABS: Hemoglobin 9.7 g/dL (14.0-18.0)
[2018-01-05 04:45] LABS: Anion Gap 13 mmol/L (10-20); BUN (Urea Nitrogen) 14 mg/dL (8.4-25.7); Calc. Creatinine Clearance 100 mL/min (70-130); Calcium 8.9 mg/dL (7.8-10.44); Carbon Dioxide 22 mmol/L (23-31); Chloride 104 mmol/L (98-107); Estimated GFR-MDRD Greater than 90; Glucose 113 mg/dL (83-110); Potassium 3.5 mmol/L (3.5-5.1); Sodium 135 mmol/L (136-145)
[2018-01-05] MEDS: Pantoprazole 40 MG GRANULES PACKET PO SCH (08:41)
[2018-01-05] MEDS: Metoprolol Tartrate 25 MG TAB PO SCH ×2 (08:41→20:43)
[2018-01-05] MEDS: Furosemide 40 MG TAB PO SCH (08:42)
--- NOTE | 2018-01-05 10:25 | PRG ---
DATE OF SERVICE: 01/05/2018 NEUROSURGERY NOTE SUBJECTIVE: I saw Mr. Kera Mcclellan in his ICU room this morning. He is entering his 4th hospital day after transfer for subdural hematoma. Mr. Mcclellan was on blood thinners when he took a fall at home re sulting in a falcine subdural hematoma, left temporal contusion, left temporal subdural hematoma and a tentorial subdural hematoma. However, his neurological status remained relatively good and due to the blood thinners on board, it is elected to observe him. Mr. Mcclellan has been relatively stable in his ICU. Recorded blood pressures are in the 110s, other vit al signs have been stable. This morning as I entered the room, he responds to me and I introduced my self, he opened his eyes. He is following commands well, moving all 4 extremities. He seems a littl e tired and falls back to sleep during our conversation, but when woken up, he is alert. He is not o riented. I reviewed previous imaging and the findings are as above. My plan for Mr. Mcclellan is to continue to monitor for any neurological deterioration. If his clot liqu efies on its own and gets reabsorbed, then we will avoid the surgery. If, however, there is neurolog ical symptoms from it and we will wait long enough for it to be removed through carolee holes rather tripp n a craniotomy, then the outcome would be significantly better for him. Dr. Garza has been communic ating this with the family and we will continue to watch him over the weekend.
--- NOTE | 2018-01-05 10:51 | PDOC.PN ---
- Subjective Encounter Start Date: 01/05/18 Encounter Start Time: 10:49 Mr. Mcclellan was seen today in follow-up of medical management following traumatic subdural hematoma. He seems a bit better to me. He was able to say one or two words that I could understand, and they were appropriate to the question asked. - Objective MAR Reviewed: Yes Vital Signs & Weight: Vital Signs (12 hours) Temp Pulse Resp BP Pulse Ox 01/05/18 08:42 92 114/57 L 01/05/18 08:00 98.5 F 01/05/18 07:19 98.5 F 92 19 93 L 01/05/18 03:00 98 F 01/04/18 23:00 98.4 F Weight Weight 172 lb 13.478 oz Most Recent Monitor Data Heart Rate from ECG 93 NIBP 114/57 NIBP BP-Mean 73 Respiration from ECG 22 SpO2 94 I&O: 01/04/18 01/05/18 01/06/18 06:59 06:59 06:59 Intake Total 1240 1370 0 Output Total 1750 910 100 Balance -510 460 -100 Result Diagrams: 01/05/18 03:34 01/05/18 03:34 Additional Labs: Accuchecks 01/04/18 01/04/18 01/04/18 21:03 16:23 13:03 POC Glucose 132 H 141 H 123 H Phys Exam - Physical Examination HEENT: PERRLA + bruising around the eyes, and on the left side of the face Respiratory: no wheezing, no rales, no rhonchi, clear to auscultation bilateral Cardiovascular: RRR, no significant murmur, no rub Gastrointestinal: soft, non-tender, positive bowel sounds Musculoskeletal: no edema Neurological: moves all 4 limbs Dx/Plan (1) Subdural hematoma Code(s): S06.5X9A - TRAUM SUBDR HEM W LOC OF UNSP DURATION, INIT Status: Acute Comment: s/p KCentra X1 01/02 and FFP today 01/03 (2) BPH (benign prostatic hyperplasia) Code(s): N40.0 - BENIGN PROSTATIC HYPERPLASIA WITHOUT LOWER URINRY TRACT SYMP Status: Chronic (3) Diabetes type 2, controlled Code(s): E11.9 - TYPE 2 DIABETES MELLITUS WITHOUT COMPLICATIONS Status: Chronic (4) GERD (gastroesophageal reflux disease) Code(s): K21.9 - GASTRO-ESOPHAGEAL REFLUX DISEASE WITHOUT ESOPHAGITIS Status: Chronic (5) Paroxysmal atrial fibrillation Code(s): I48.0 - PAROXYSMAL ATRIAL FIBRILLATION Status: Chronic Comment: Resume BB and CCB with parameters for BP (6) Pulmonary hypertension Code(s): I27.20 - PULMONARY HYPERTENSION, UNSPECIFIED Status: Chronic - Plan * Traumatic Subdural hematoma- continue with conservative management * HTN- blood pressure is well controlled * AFIB- his heart rate for the most part has been stable- continue Cardizem, and Metoprolol * Continue PT/OT.
--- NOTE | 2018-01-05 12:00 | PRG ---
DATE OF SERVICE: 01/05/2018 OBJECTIVE VITAL SIGNS: Pulse 87, blood pressure 110/30, sats are 98% on room air, respirations 20. GENERAL: He opens his eyes. CHEST: Decreased breath sounds, no wheezing. CARDIAC: Normal S1 and S2, no gallops. ABDOMEN: Soft. LABORATORY DATA: His hemoglobin and hematocrit is stable at 9 and 27. His electrolytes are normal. IMPRESSION: 1. Status post subdural hematoma, associated with fall. 2. Encephalopathy. PLAN: 1. Continue supportive care. 2. Anti-seizure medication. 3. Needs nutrition. 4. Await ongoing evaluation from Speech.
[2018-01-05] MEDS: Acetaminophen 325 MG TAB PO PRN (20:45)
[2018-01-06 04:20] LABS: Hemoglobin 9.5 g/dL (14.0-18.0)
[2018-01-06 04:31] LABS: Anion Gap 12 mmol/L (10-20); BUN (Urea Nitrogen) 13 mg/dL (8.4-25.7); Calc. Creatinine Clearance 103 mL/min (70-130); Calcium 8.9 mg/dL (7.8-10.44); Carbon Dioxide 24 mmol/L (23-31); Chloride 105 mmol/L (98-107); Estimated GFR-MDRD Greater than 90; Glucose 124 mg/dL (83-110); Sodium 138 mmol/L (136-145)
[2018-01-06] MEDS: Pantoprazole 40 MG GRANULES PACKET PO SCH (08:38)
[2018-01-06] MEDS: Metoprolol Tartrate 25 MG TAB PO SCH ×2 (08:38→21:07)
[2018-01-06] MEDS: Furosemide 40 MG TAB PO SCH (08:38)
--- NOTE | 2018-01-06 09:29 | PRG ---
DATE OF SERVICE: 01/06/2018 SUBJECTIVE: This morning, he is awake, responsive. OBJECTIVE: VITAL SIGNS: Sats are 95% on room air, blood pressure 114/69, pulse 86, respirations 18. GENERAL: Opens his eyes. Moves all 4 extremities. CHEST: Decreased breath sounds, no wheezing. CARDIAC: Normal S1 and S2, no gallops. ABDOMEN: Soft. No masses. IMPRESSION: Status post fall with subdural encephalopathy. PLAN: At this stage, continue observation in the ICU. No surgery. Discussed with family, ongoing care. Continue Keppra.
--- NOTE | 2018-01-06 09:29 | PDOC.PN ---
- Subjective Encounter Start Date: 01/06/18 Encounter Start Time: 09:26 Mr. Mcclellan was seen today in follow-up of traumatic subdural hematoma. He is appears comfortable, no complaints voiced - Objective MAR Reviewed: Yes Vital Signs & Weight: Vital Signs (12 hours) Temp Pulse BP 01/06/18 08:38 91 115/73 01/06/18 08:00 98.4 F 01/06/18 03:00 98.3 F 01/05/18 23:00 98.6 F Weight Weight 174 lb 2.643 oz Most Recent Monitor Data Heart Rate from ECG 92 NIBP 120/66 NIBP BP-Mean 80 Respiration from ECG 20 SpO2 95 I&O: 01/05/18 01/06/18 01/07/18 06:59 06:59 06:59 Intake Total 1370 1600 600 Output Total 910 1340 100 Balance 460 260 500 Result Diagrams: 01/06/18 03:17 01/06/18 03:17 Additional Labs: Accuchecks 01/05/18 01/05/18 01/05/18 21:02 17:58 13:16 POC Glucose 138 H 129 H 126 H Phys Exam - Physical Examination HEENT: PERRLA + bruising around his face, and Respiratory: no wheezing Cardiovascular: RRR, no significant murmur, no rub Gastrointestinal: soft, non-tender, positive bowel sounds Musculoskeletal: no edema Dx/Plan (1) Subdural hematoma Code(s): S06.5X9A - TRAUM SUBDR HEM W LOC OF UNSP DURATION, INIT Status: Acute Comment: s/p KCentra X1 01/02 and FFP today 01/03 (2) BPH (benign prostatic hyperplasia) Code(s): N40.0 - BENIGN PROSTATIC HYPERPLASIA WITHOUT LOWER URINRY TRACT SYMP Status: Chronic (3) Diabetes type 2, controlled Code(s): E11.9 - TYPE 2 DIABETES MELLITUS WITHOUT COMPLICATIONS Status: Chronic (4) GERD (gastroesophageal reflux disease) Code(s): K21.9 - GASTRO-ESOPHAGEAL REFLUX DISEASE WITHOUT ESOPHAGITIS Status: Chronic (5) Paroxysmal atrial fibrillation Code(s): I48.0 - PAROXYSMAL ATRIAL FIBRILLATION Status: Chronic Comment: Resume BB and CCB with parameters for BP (6) Pulmonary hypertension Code(s): I27.20 - PULMONARY HYPERTENSION, UNSPECIFIED Status: Chronic (7) Hypokalemia Code(s): E87.6 - HYPOKALEMIA Status: Acute - Plan * Traumatic Subdural hematoma- He has been stable neurologically * HTN- his blood pressure is well controlled * AFIB- heart rate is stable * Hypokalemia- replace potassium * Continue PT/OT * He has orders to move out of the ICU * I suspect he will need prison or Rehab placement.
[2018-01-06] MEDS ORDERED: Potassium Chloride 20 MEQ TAB PO SCH ×2 (09:30→13:00)
--- NOTE | 2018-01-06 13:25 | PRG ---
DATE OF SERVICE: 01/06/2018 NEUROSURGERY NOTE SUBJECTIVE: I saw Mr. Mcclellan in his hospital room this morning. He is starting his 5th hospital day here. He is admitted after a fall and had a significant subdural hematoma and temporal lobe contusion, falcine subdural and a tentorial subdural on the left side. Mr. Mcclellan has remained awake entire time during his hospital stay. He is arousable. He is not intubated. He is doing relatively well. When I saw Mr. Mcclellan this morning in his ICU room, I noticed his blood pressures were in acceptable range of 110s-120s. He did not have a fever recorded in the last 24 hours. His pulse is in the 70s-90s. He is satting well. Mr. Mcclellan wakes when I entered the room. When I called his name, he opens his eyes, he answer questions with one or two words. Following commands well. He seems comfortable and just tired. This morning, the sodium is 138, which is an improvement. His white blood cell count is 8.7 in the normal range. I am going to see Mr. Mcclellan has remained stable. I think it would be reasonable to move him from the ICU to the Floor Care. We will continue to monitor his progress. So far he has been eating safely, either nurses or family are there to feed him. The longer we can avoid surgical intervention, more likely these blood products will become liquid and hopefully go away on their own. If they cause symptoms chronic blood can be removed more easily with carolee holes than acute blood would with a large craniotomy. RONALDO
--- NOTE | 2018-01-06 17:09 | ULT ---
BILATERAL LOWER EXTREMITY VENOUS DOPPLER WITH SPECTRAL ANALYSIS AND COLOR FLOW EVALUATION: Date: 01-06-18 History: Immobility. Risk for pulmonary embolus. Left subdural hematoma. FINDINGS: Grayscale, color flow, doppler evaluation and spectral analysis of the bilateral lower extremity veno us structures is performed with 2D imaging. The bilateral lower extremity common femoral, superficial femoral, popliteal, posterior tibial, most proximal greater saphenous and profunda femoral veins are imaged. There is normal lumen compressibility, flow, and augmentation in the visualized deep venous structure s of the bilateral lower extremity. IMPRESSION: No evidence of a DVT involving the visualized deep venous structures bilateral lower extremities. POS: [facility]
[2018-01-07 04:54] LABS: Hemoglobin 10.1 g/dL (14.0-18.0)
[2018-01-07 04:57] LABS: Anion Gap 13 mmol/L (10-20); BUN (Urea Nitrogen) 10 mg/dL (8.4-25.7); Calc. Creatinine Clearance 104 mL/min (70-130); Carbon Dioxide 21 mmol/L (23-31); Chloride 108 mmol/L (98-107); Estimated GFR-MDRD Greater than 90; Glucose 128 mg/dL (83-110); Potassium 3.7 mmol/L (3.5-5.1); Sodium 138 mmol/L (136-145)
[2018-01-07] MEDS: Metoprolol Tartrate 25 MG TAB PO SCH ×2 (09:05→22:01)
[2018-01-07] MEDS: Furosemide 40 MG TAB PO SCH (09:06)
[2018-01-07] MEDS: Pantoprazole 40 MG GRANULES PACKET PO SCH (09:07)
--- NOTE | 2018-01-07 09:14 | PRG ---
DATE OF SERVICE: 01/07/2018 Derick Francois PA-C dictating for Erich Garza MD Mr. Mcclellan is now hospital day #5, having a left-sided traumatic subdural hematoma. Apparently, the nata portillo's neuro exam at this point is waxing and waning. He will awaken easily to voice, but is nonve rbal this morning. He follows commands in the left upper and lower extremities, but minimal movement in the right upper and lower extremities. He will wiggle his toes on the right. Review of patient' s medical records states that again he is able to feed himself. I think at this point we can continu e to monitor his neurologic status. His pupils are equal, round, and reactive, and again, he awakens to voice. Of course, we hope to avoid any type of neurosurgical intervention on the patient. Anyth ing needs to change, of course, we will act appropriately. Please call with any questions or changes in patient's neurologic status. Otherwise, we will continue to follow.
[2018-01-07 10:18] LABS: Hemoglobin 10.7 g/dL (14.0-18.0); Mean Corpuscular HGB CONC 31.5 g/dL (32.0-36.0); Mean Corpuscular Hemoglobin 27.1 pg (27.0-31.0); Mean Corpuscular Volume 85.8 fL (78.0-98.0); Mean Platelet Volume 11.4 fL (7.4-10.4); Platelet Count 306 thou/uL (130-400); RBC Distribution Width 19.9 % (11.5-14.5); Red Blood Cell (RBC) Count 3.97 mill/uL (4.70-6.10)
[2018-01-07 10:22] LABS: INR-International Normal Ratio 1.6; PTT 42.1 SEC (22.9-36.1); Prothrombin Time 18.7 SEC (12.0-14.7)
[2018-01-07 10:49] LABS: Anisocytosis MODERATE=16-30 cells (100X) (0-5/hpf); Band 18 % (5-11); Eosinophils 1 % (0-10); Large Platelets MODERATE; Lymphocytes 6 % (21-51); MDiff Complete? YES; Metamyelocyte 3 % (0-0); Monocytes 19 % (0-10); Myelocyte 1 % (0-0); Neutrophil 52 % (42-75)
[2018-01-07] MEDS ORDERED: Sodium Chloride 0.9% 10 ML ONE (11:23)
[2018-01-07] MEDS ORDERED: Gelfilm 1 EA Packet ONE (11:23)
[2018-01-07] MEDS ORDERED: levETIRAcetam 500 MG/100 ML PREMIX BAG ONE (11:23)
[2018-01-07] MEDS ORDERED: Bacitracin Zinc Ointment 30 gm TUBE ONE (11:23)
[2018-01-07] MEDS ORDERED: Lidocaine 0.5%/Epinephrine 1:200,000 50 ml Vial ONE (11:23)
[2018-01-07] MEDS ORDERED: levETIRAcetam 1000 MG/100 ML PREMIX BAG ONE (11:23)
[2018-01-07] MEDS ORDERED: Thrombin 5000 UNITS/5 ML VIAL ONE (11:24)
--- NOTE | 2018-01-07 11:39 | PRG ---
DATE OF SERVICE: 01/07/2018 Unfortunately Mr. Mcclellan is more drowsy this morning. While he does open his eyes and attends to the examiner he is nonverbal. His weakness is also increased compared to even yesterday's exam. He is c ertainly not as robust in his appearance as he was in the past. I repeated a head CT and as expected his bleed has increased with increased midline shift which would account certainly for the decline i n his exam. As such, I have spoken with his daughter and I have let her know that we need to go to [facility]. The surgery would be a left-sided craniotomy for acute subdural hematoma evacuation. They w ould like us to proceed. The goals, risks, indications, benefits, and alternatives were discussed in detail with the patient's daughter. They understand the risks are up to and including, but not limi sameera to wound healing issues such as infection, bleeding, spinal fluid leak, stroke, seizure, temporar y or permanent neurologic risk and even medical complications. They understand these risks and wish we would proceed. There were no barriers to our discussion. DIAGNOSES Left-sided acute subdural hematoma on anticoagulation, worsening radiologically and clinic ally.
[2018-01-07] MEDS ORDERED: Fentanyl 100 MCG/2 ML VIAL ONE (11:40)
--- NOTE | 2018-01-07 12:38 | CT ---
CT HEAD NONCONTRAST DATE: 01/07/18 HISTORY: Intracranial hemorrhage. Follow-up. COMPARISON: 01/03/18. FINDINGS: Large area of mixed density fluid in the left frontotemporal subdural space has enlarged since the pr ior study, now measuring up to 1.5 cm depth. There is greater effacement of the left cerebral hemisph ere. Vasogenic edema throughout the left cerebral hemisphere has increased. Rightward shift of the se ptum pellucidum is now up to 1.6 cm. There is increasing dilatation of the temporal horn of each late ral ventricle with projection of the medial margin of the left tempora lobe beneath the left tentoriu m. Lobular areas of subdural and subarachnoid hemorrhage extending around the posterior and medial ma rgins of the left cerebral hemisphere have not changed significantly. Postoperative changes of the ri ght calvarium are similar in appearance to the previous study. IMPRESSION: Significant interval enlargement of large left subdural mixed density acute/hyperacute hematoma, with worsening mass effect. Now with uncal herniation left temporal lobe and developing obstructive hydro cephalus. Intraventricular hemorrhage is now more apparent. Findings called to Derick Francois at 1024 hours. CODE CR. POS: [facility]
[2018-01-07] MEDS ORDERED: PHENYLEPHRINE-NS 100 MCG/ML 10 ML SYRINGE ONE ×2 (14:27→15:12)
[2018-01-07] MEDS ORDERED: Propofol 1,000 MG/100 ML VIAL IV ONE (14:41)
[2018-01-07] MEDS ORDERED: Lidocaine 1% PF 5 ML VIAL ONE (15:12)
[2018-01-07] MEDS ORDERED: Labetalol 100 MG/20 ML MDV ONE (15:12)
[2018-01-07] MEDS ORDERED: PROPOFOL 200 MG/20 ML VIAL ONE (15:12)
[2018-01-07] MEDS ORDERED: Esmolol 100 MG/10 ML VIAL ONE (15:12)
[2018-01-07 15:43] LABS: Actual Bicarbonate (HCO3a) 23.2 mEq/L (22-28); pH, Arterial 7.34 (7.35-7.45)
[2018-01-07 15:44] LABS: Base Excess (BEa) -2.5 mEq/L (-2.0 to +3.0); Calcium, Ionized 1.1 mmol/L (1.12-1.30); Hemoglobin (Hb) 10.7 g/dL (14.0-18.0); Puncture Site RBA
--- NOTE | 2018-01-07 16:04 | PDOC.PN ---
- Subjective Encounter Start Date: 01/07/18 Encounter Start Time: 16:04 Mr. Mcclellan was seen today in follow-up of traumatic Subdural. He had a decline in his mental status today, and a CT scan was performed. He was found to have worsening of the subdural hematoma, and mass effect. He was taken emergently to surgery. - Objective MAR Reviewed: Yes Vital Signs & Weight: Vital Signs (12 hours) Temp Pulse Pulse Resp BP BP BP 01/07/18 14:49 100 117/67 01/07/18 14:35 97.9 F 01/07/18 09:05 95 01/07/18 08:37 103 H 132/67 01/07/18 08:00 99.6 F 95 16 01/07/18 07:53 99.6 F 95 16 124/68 Pulse Ox 01/07/18 14:49 01/07/18 14:35 01/07/18 09:05 01/07/18 08:37 01/07/18 08:00 01/07/18 07:53 94 L Weight Weight 174 lb 9.6 oz Most Recent Monitor Data Heart Rate from ECG 123 NIBP 152/105 NIBP BP-Mean 114 Respiration from ECG 23 SpO2 100 I&O: 01/06/18 01/07/18 01/08/18 06:59 06:59 06:59 Intake Total 1600 670 60 Output Total 1340 350 90 Balance 260 320 -30 Result Diagrams: 01/07/18 10:00 01/07/18 03:52 Additional Labs: Accuchecks 01/07/18 01/07/18 01/06/18 05:24 00:24 15:38 POC Glucose 128 H 137 H 120 H Phys Exam - Physical Examination Respiratory: no wheezing, no rales, no rhonchi, clear to auscultation bilateral Cardiovascular: no significant murmur, no rub, irregular Gastrointestinal: soft, non-tender, positive bowel sounds Musculoskeletal: no edema Dx/Plan (1) Subdural hematoma Code(s): S06.5X9A - TRAUM SUBDR HEM W LOC OF UNSP DURATION, INIT Status: Acute Comment: s/p KCentra X1 01/02 and FFP today 01/03 (2) BPH (benign prostatic hyperplasia) Code(s): N40.0 - BENIGN PROSTATIC HYPERPLASIA WITHOUT LOWER URINRY TRACT SYMP Status: Chronic (3) Diabetes type 2, controlled Code(s): E11.9 - TYPE 2 DIABETES MELLITUS WITHOUT COMPLICATIONS Status: Chronic (4) GERD (gastroesophageal reflux disease) Code(s): K21.9 - GASTRO-ESOPHAGEAL REFLUX DISEASE WITHOUT ESOPHAGITIS Status: Chronic (5) Paroxysmal atrial fibrillation Code(s): I48.0 - PAROXYSMAL ATRIAL FIBRILLATION Status: Chronic Comment: Resume BB and CCB with parameters for BP (6) Pulmonary hypertension Code(s): I27.20 - PULMONARY HYPERTENSION, UNSPECIFIED Status: Chronic (7) Hypokalemia Code(s): E87.6 - HYPOKALEMIA Status: Acute - Plan * Subdural Hematoma- patient had craniotomy * AFIB with RVR- he developed AFIB with RVR while in surgery, and he is now on a Cardizem drip * HTN- blood pressure is currently controlled, and the goal is to keep is SBP < 140 * DM- continue SSI * He is on Keppra for seizure prophylaxis .
[2018-01-07] MEDS: Diltiazem 125 MG in Sodium Chloride 0.9% 100 ML IVPB SCH (21:56)
[2018-01-07] MEDS: CEFAZOLIN 1 GM in Sodium Chloride 0.9% 100 ML IVPB SCH (22:01)
--- NOTE | 2018-01-08 02:06 | PRG ---
DATE OF SERVICE: 01/07/2018 SUBJECTIVE: Kera Mcclellan went to the OR today for surgical treatment of his hematoma. He is transfer back to Critical Care Unit and intubated. OBJECTIVE: VITAL SIGNS: Heart rate 71, blood pressure 122/67, respiratory rate mechanical ventilation. He was still sedated from anesthesia when I examined. LUNGS: Clear. HEART: Regular rhythm. ABDOMEN: Soft and nontender, without guarding. EXTREMITIES: Without asymmetry. IMPRESSION: Status post evacuation of a hematoma. PLAN: Serial neuro exams and weaning as tolerated depending on his mental status. Critical care time was 30 minutes.
[2018-01-08 05:32] LABS: Hemoglobin 9.8 g/dL (14.0-18.0)
[2018-01-08 05:42] LABS: Anion Gap 13 mmol/L (10-20); BUN (Urea Nitrogen) 8 mg/dL (8.4-25.7); Calc. Creatinine Clearance 106 mL/min (70-130); Calcium 8.6 mg/dL (7.8-10.44); Carbon Dioxide 21 mmol/L (23-31); Chloride 111 mmol/L (98-107); Estimated GFR-MDRD Greater than 90; Glucose 146 mg/dL (83-110); Potassium 3.3 mmol/L (3.5-5.1); Sodium 142 mmol/L (136-145)
[2018-01-08 05:43] LABS: Band 7 % (5-11); Hemoglobin 9.7 g/dL (14.0-18.0); Lymphocytes 10 % (21-51); MDiff Complete? YES; Mean Corpuscular HGB CONC 31.9 g/dL (32.0-36.0); Mean Corpuscular Hemoglobin 27.1 pg (27.0-31.0); Mean Platelet Volume 11.5 fL (7.4-10.4); Metamyelocyte 1 % (0-0); Monocytes 19 % (0-10); Myelocyte 1 % (0-0); Neutrophil 62 % (42-75); PLT Morphology Comment Appears Adequate; Platelet Count 303 thou/uL (130-400); RBC Distribution Width 21.7 % (11.5-14.5); Red Blood Cell (RBC) Count 3.59 mill/uL (4.70-6.10); White Blood Cell (WBC) Count 15.2 thou/uL (4.8-10.8)
[2018-01-08] MEDS: CEFAZOLIN 1 GM in Sodium Chloride 0.9% 100 ML IVPB SCH ×3 (05:56→21:13)
[2018-01-08 07:12] LABS: Actual Bicarbonate (HCO3a) 19.6 mEq/L (22-28); Base Excess (BEa) -3.2 mEq/L (-2.0 to +3.0); CO2 Tension 27.6 mmHg (35.0-45.0); Calcium, Ionized 1.2 mmol/L (1.12-1.30); Hemoglobin (Hb) 9.3 g/dL (14.0-18.0); O2 Tension (PaO2) 89.3 mmHg (> 60.0); Puncture Site RRA; pH, Arterial 7.47 (7.35-7.45)
--- NOTE | 2018-01-08 08:02 | PRG ---
DATE OF SERVICE: 01/08/2018 SUBJECTIVE: Mr. 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 This morning, he is opening his eyes to voice. He remains intubated. He weakly follows comma nds on his left side and is even follow commands for the nurse on the right side. He follows command s in bilateral lower extremities for them as well. He does not for me this morning, although I suspe ct it sedation of fact, he remains in atrial fibrillation with rapid ventricular response and I would ask that our Cardiology colleagues to assist in this regard. He cannot be anticoagulated, but it wo uld be ideal to rate control him. He is on diltiazem drip and is already on baseline metoprolol. I would be fine with weaning to extubate the patient.
--- NOTE | 2018-01-08 08:21 | PDOC.PN ---
- Subjective Encounter Start Date: 01/08/18 Encounter Start Time: 08:18 Mr. Mcclellan was seen today in follow-up of Traumatic subdural hematoma. He is post op day#1. He is intubated. He did not follow commands for me, but it was noted he did earlier for Dr. Garza. - Objective MAR Reviewed: Yes Vital Signs & Weight: Vital Signs (12 hours) Pulse Resp BP 01/08/18 06:52 110 H 01/08/18 06:00 28 H 01/08/18 04:00 26 H 01/08/18 02:58 120 H 01/08/18 02:00 24 H 01/08/18 00:00 22 H 01/07/18 22:32 104 H 117/59 L 01/07/18 22:00 22 H Weight Weight 174 lb 14.4 oz Most Recent Monitor Data Heart Rate from ECG 108 NIBP 126/64 NIBP BP-Mean 94 Respiration from ECG 23 SpO2 96 I&O: 01/07/18 01/08/18 01/09/18 06:59 06:59 06:59 Intake Total 670 1588.9 Output Total 350 1308 Balance 320 280.9 Result Diagrams: 01/08/18 04:51 01/08/18 04:51 Additional Labs: Accuchecks 01/08/18 01/07/18 01/07/18 05:54 21:54 16:35 POC Glucose 152 H 137 H 195 H Phys Exam - Physical Examination HEENT: PERRLA Respiratory: no wheezing, no rales, no rhonchi, clear to auscultation bilateral Cardiovascular: RRR, no significant murmur Gastrointestinal: soft, non-tender, positive bowel sounds Musculoskeletal: no edema Dx/Plan (1) Subdural hematoma Code(s): S06.5X9A - TRAUM SUBDR HEM W LOC OF UNSP DURATION, INIT Status: Acute Comment: s/p KCentra X1 01/02 and FFP today 01/03 (2) BPH (benign prostatic hyperplasia) Code(s): N40.0 - BENIGN PROSTATIC HYPERPLASIA WITHOUT LOWER URINRY TRACT SYMP Status: Chronic (3) Diabetes type 2, controlled Code(s): E11.9 - TYPE 2 DIABETES MELLITUS WITHOUT COMPLICATIONS Status: Chronic (4) GERD (gastroesophageal reflux disease) Code(s): K21.9 - GASTRO-ESOPHAGEAL REFLUX DISEASE WITHOUT ESOPHAGITIS Status: Chronic (5) Paroxysmal atrial fibrillation Code(s): I48.0 - PAROXYSMAL ATRIAL FIBRILLATION Status: Chronic Comment: Resume BB and CCB with parameters for BP (6) Pulmonary hypertension Code(s): I27.20 - PULMONARY HYPERTENSION, UNSPECIFIED Status: Chronic (7) Hypokalemia Code(s): E87.6 - HYPOKALEMIA Status: Acute - Plan * Traumatic Subdural Hematoma- patient is s/p craniotomy. He is intubated * AFIB - his heart rate is still elevated despite being on the Cardizem drip- await Cardiology input * HTN _ stable * Hyp[okalemia- replace potassium * DM- blood glucose is stable * Await PCCM recommendations regarding the Ventilator
[2018-01-08] MEDS ORDERED: Potassium Chloride 20 MEQ in Premix Bag 1 BAG IVPB SCH (08:45)
--- NOTE | 2018-01-08 08:54 | OP ---
DATE OF PROCEDURE: 01/07/2018 OR: OR #12. WOUND TYPE: Type 1 wound. SURGEON: Erich Garza M.D. PREPROCEDURE DIAGNOSES: Enlarging left acute subdural hematoma with neurologic decline, mass effect and midline shift. POSTPROCEDURE DIAGNOSES: Enlarging left acute subdural hematoma with neurologic decline, mass effect and midline shift. Modifier 57 should be added to this surgery as decision to operate was made on t he same day I saw the patient. PROCEDURE: Left frontotemporal craniotomy for acute subdural hematoma evacuation over the left front al lobe. DESCRIPTION OF PROCEDURE: After informed consent was obtained from the patient's family and the tamiko gent nature conveyed to them, the patient was brought to OR 12. Proper patient pause and identificat ion was carried out. He was placed under excellent general endotracheal anesthesia, positioned supin e on the OR table with a bump placed under his left hemithorax His head was secured with a Pagan joan head butler and hair was clipped in the left frontal temporal region. A modified V-shaped inc ision was drawn out over the left frontal temporal region. This area was sterilely cleansed, prepare d, and draped. Proper patient pause and identification was carried out. The wound was then opened w ith a combination of sharp, monopolar and blunt dissection. The scalp flap reflected. Felicia holes fa shioned and the craniotomy flap lifted. The dura was opened. Hematoma was evacuated. This was acut e and subacute in nature as the patient had fallen approximately 8 days before. This was evacuated a nd I was satisfied with the evacuation. I also evacuated some of the temporal lobe hematoma, althoug h I did not want to get into a worsening coagulopathy and I felt as if we had had adequate decompress ion of the midline shift and brain. Copious irrigation occurred. The dura was then reapproximated a nd closed with suture. A bone flap was replaced with titanium plates and screws and the wound closed in anatomic layers following the sprinkling of vancomycin powder and placement of a drain. The terri ent was then kept intubated and taken to the ICU.
[2018-01-08] MEDS: Acetaminophen 325 MG TAB PO PRN ×2 (09:00→14:06)
--- NOTE | 2018-01-08 09:08 | CT ---
PRELIMINARY REPORT/[facility]/EMERGENTY AFTER-HOURS PROCEDURE CT Head Without Intravenous Contrast CLINICAL HISTORY: 82 years old, male; Condition or disease; Other: Bleed; Prior surgery; Surgery date: Post-operative ( 0-2 days); Patient HX: S/P left craniotomy for sdh evacuation TECHNIQUE: Axial computed tomography images of the head/brain without intravenous contrast. COMPARISON: CT Brain WO Con 2018-01-03 03:28 FINDINGS: Brain: No significant change in intraparenchymal hemorrhage in the left temporal lobe, however, there has been partial evacuation of subdural hemorrhage layering along the left frontal lobe. More home security alarm installer ior subdural blood along the parietal lobe and layering on the tentorium are unchanged. Slightly incr eased subdural blood is seen along the falx. This may be due to redistribution. There is effacement o f the sulci throughout the left cerebral hemisphere which is unchanged. There is slightly increased m idline shift to the right, measuring 8.9 mm compared to 7.7 mm on the previous exam. No herniation. B len cisterns are patent. No significant white matter disease. Ventricles: There is slightly less effacement of left lateral ventricle. Stable blood layering in the occipital horns of the lateral ventricles. No hydrocephalus. Bones/joints: There has been an interval left frontotemporal craniotomy. There is also an old right p arietal carolee hole. No acute fracture. Soft tissues: Unremarkable. Sinuses: Mucosal thickening in the ethmoid and sphenoid sinuses. Mastoid air cells: There is stable fluid throughout the left mastoid air cells and tympanic cavity. IMPRESSION: Surgical changes as described above with mild decrease in the subdural blood and parenchymal hemorrha ge in the left temporal lobe. Thank you for allowing us to participate in the care of your patient. Dictated and Authenticated by: Daniel Irwin MD 01/08/2018 5:50 AM Central Time ([place] & [place] E) CT HEAD NONCONTRAST: 01/08/2018 0529 HOURS HISTORY: Surgical evacuation of intracranial hematoma. Exam performed on an emergency basis. COMPARISON: 01/07/2018 FINDINGS: I agree with the description of the findings by Dr. Irwin from [facility]. The comparison on that exam was to an earlier CT rather than the most recent exam. Since the surgical evacuation of th e large left subdural hematoma, there has actually been a decrease in the shift of the septum pelluci dum, from 1.6 cm to 0.9 cm. Intracranial hemorrhage is stable. Left temporal horn ventricular dilat ation has decreased. Midline extraaxial hemorrhage is not significantly changed. POS: [facility]
[2018-01-08] MEDS: Pantoprazole 40 MG GRANULES PACKET PO SCH (09:30)
[2018-01-08] MEDS: Furosemide 40 MG TAB PO SCH (09:31)
[2018-01-08] MEDS: Metoprolol Tartrate 25 MG TAB PO SCH ×2 (09:32→21:13)
--- NOTE | 2018-01-08 09:39 | RAD ---
PORTABLE UPRIGHT FRONTAL CHEST RADIOGRAPH: Date: 01-08-18 Comparison: 01-02-18 History: Ventilated CCU patient. FINDINGS: There is an endotracheal tube terminating at the level of the clavicles. Nasogastric tube extends int o upper abdomen. There is no pneumothorax. Heart and mediastinal contours are stable. There has been interval development of increased density in the right base with blunting of the right costophrenic angle and partial obscuration of the right heart border. This suggests nonspecific righ t middle and/or right lower lobe opacity with associated pleural fluid. In addition, there is mild bl unting of the left costophrenic angle with increased density in the medial left base, new. IMPRESSION: Lines and tubes as above. New nonspecific pleural and parenchymal opacity within the lung bases, righ t greater than left. This could be on the basis of edema or infectious pneumonitis. Follow up to reso lution advised. POS: [facility]
[2018-01-08] MEDS: Diltiazem 125 MG in Sodium Chloride 0.9% 100 ML IVPB SCH ×2 (11:19→20:44)
--- NOTE | 2018-01-08 15:56 | PRG ---
DATE OF SERVICE: 01/08/2018 OBJECTIVE: VITAL SIGNS: His blood pressure 100/51, heart rate 78, and respiratory rate is per mechanical ventil ation. LUNGS: Clear anteriorly. HEART: Regular rhythm. ABDOMEN: Soft. He has had some temperature spikes. Chest radiograph shows atelectasis at his right base. Cultures were done today. LABORATORY DATA: White count 15.2, hemoglobin 9.7, platelets 303,000. He has 7% bands on his periph eral smear. Sodium 142, potassium 3.3, chloride 111, bicarbonate 21, BUN 8, creatinine 0.59, pH 7.47 , CO2 of 27, pO2 of 89. IMPRESSION: 1. Status post craniotomy and evacuation of clot. 2. Respiratory failure associated with his neurosurgical procedure and his subdural hematoma with ma ss effect. We will continue mechanical ventilation slowly weaning depending on his neurological status. Critical care time was 30 minutes.
[2018-01-09] MEDS: Acetaminophen 325 MG TAB PO PRN ×2 (01:30→20:52)
[2018-01-09] MEDS: CEFAZOLIN 1 GM in Sodium Chloride 0.9% 100 ML IVPB SCH ×3 (05:55→21:36)
[2018-01-09 05:56] LABS: Anion Gap 10 mmol/L (10-20); BUN (Urea Nitrogen) 9 mg/dL (8.4-25.7); Calc. Creatinine Clearance 110 mL/min (70-130); Calcium 8.5 mg/dL (7.8-10.44); Carbon Dioxide 23 mmol/L (23-31); Chloride 114 mmol/L (98-107); Estimated GFR-MDRD Greater than 90; Glucose 148 mg/dL (83-110); Sodium 144 mmol/L (136-145)
[2018-01-09 05:57] LABS: Potassium 2.8 mmol/L (3.5-5.1)
[2018-01-09 06:00] LABS: Band 9 % (5-11); Hemoglobin 8.5 g/dL (14.0-18.0); Hypochromia SLIGHT = 6-15 cells (100X) (0-5/hpf); Lymphocytes 4 % (21-51); MDiff Complete? YES; Mean Corpuscular Hemoglobin 27.6 pg (27.0-31.0); Mean Corpuscular Volume 86.3 fL (78.0-98.0); Mean Platelet Volume 11.4 fL (7.4-10.4); Metamyelocyte 2 % (0-0); Monocytes 14 % (0-10); Myelocyte 2 % (0-0); Neutrophil 69 % (42-75); PLT Morphology Comment Appears Adequate; Platelet Count 250 thou/uL (130-400); Polychromasia SLIGHT = 2-3 cells (100X) (0-2/hpf); RBC Distribution Width 19.2 % (11.5-14.5); Red Blood Cell (RBC) Count 3.08 mill/uL (4.70-6.10); White Blood Cell (WBC) Count 14.6 thou/uL (4.8-10.8)
[2018-01-09 06:37] LABS: Actual Bicarbonate (HCO3a) 22.3 mEq/L (22-28); CO2 Tension 33.8 mmHg (35.0-45.0); O2 Tension (PaO2) 115.9 mmHg (> 60.0); pH, Arterial 7.44 (7.35-7.45)
[2018-01-09 06:38] LABS: Base Excess (BEa) -1.5 mEq/L (-2.0 to +3.0); Hemoglobin (Hb) 8.9 g/dL (14.0-18.0)
[2018-01-09 06:39] LABS: Calcium, Ionized 1.2 mmol/L (1.12-1.30); Puncture Site LR
--- NOTE | 2018-01-09 08:38 | RAD ---
CHEST 1 VIEW: Date: 01/09/18 HISTORY: Intubated. Dyspnea. Follow-up. COMPARISON: 01/08/18. FINDINGS: Cardiac silhouette magnified and upper limits of normal in size. Pulmonary vasculature is slightly mo re engorged with slight interval increase in patchy bilateral perihilar infiltrates. Mediastinum is m idline. Lines and tubes appear unchanged in position. No evidence of pneumothorax. IMPRESSION: Slight interval worsening in radiographic appearance of pulmonary vascular congestion. POS: [facility]
[2018-01-09] MEDS: Metoprolol Tartrate 25 MG TAB PO SCH ×2 (08:44→20:51)
[2018-01-09] MEDS: Pantoprazole 40 MG GRANULES PACKET PO SCH (08:44)
[2018-01-09] MEDS: Furosemide 40 MG TAB PO SCH (08:46)
--- NOTE | 2018-01-09 09:18 | PDOC.PN ---
- Subjective Encounter Start Date: 01/09/18 (f/u hypokalemia) Encounter Start Time: 09:16 Subjective: Pt more alert this morning, remains intubated -: no overnight events. Has received 40meq K+ -: this morning - Objective Vital Signs & Weight: Vital Signs (12 hours) Temp Pulse Resp BP 01/09/18 08:45 92 121/63 01/09/18 07:00 92 121/63 01/09/18 06:00 22 H 01/09/18 04:08 105 H 01/09/18 04:00 20 01/09/18 03:00 99.4 F 01/09/18 02:00 28 H 01/09/18 00:00 24 H 01/08/18 23:00 99.4 F 01/08/18 22:59 107 H 123/56 L 01/08/18 22:00 25 H Weight Admit Weight 177 lb Weight 177 lb 0.499 oz Most Recent Monitor Data Heart Rate from ECG 94 NIBP 121/63 NIBP BP-Mean 91 Respiration from ECG 21 SpO2 99 I&O: 01/08/18 01/09/18 01/10/18 06:59 06:59 06:59 Intake Total 1588.9 631 Output Total 1308 1440 110 Balance 280.9 -809 -110 Result Diagrams: 01/09/18 05:10 01/09/18 05:10 Additional Labs: Accuchecks 01/08/18 01/08/18 01/08/18 21:44 17:19 12:02 POC Glucose 139 H 146 H 140 H EKG Reviewed by me: Yes (a fib with rate 90's and pvc's) Phys Exam - Physical Examination Constitutional: NAD opens eyes to stimulation edema and ecchymosis of nose Respiratory: no wheezing, no rales, no rhonchi Cardiovascular: no significant murmur, irregular Gastrointestinal: soft, non-tender, no distention, positive bowel sounds Musculoskeletal: no edema opens eyes to stimulatoin Deviation from normal: unable to assess Deviation from normal: abrasions on right arm/hand Dx/Plan (1) Hypokalemia Code(s): E87.6 - HYPOKALEMIA Status: Acute (2) Subdural hematoma Code(s): S06.5X9A - TRAUM SUBDR HEM W LOC OF UNSP DURATION, INIT Status: Acute Comment: s/p KCentra X1 01/02 and FFP 01/03, craniotomy 01/07 (3) Atrial fibrillation Code(s): I48.91 - UNSPECIFIED ATRIAL FIBRILLATION Status: Acute Qualifiers: Atrial fibrillation type: unspecified Qualified Code(s): I48.91 - Unspecified atrial fibrillation (4) Pulmonary hypertension Code(s): I27.20 - PULMONARY HYPERTENSION, UNSPECIFIED Status: Chronic (5) BPH (benign prostatic hyperplasia) Code(s): N40.0 - BENIGN PROSTATIC HYPERPLASIA WITHOUT LOWER URINRY TRACT SYMP Status: Chronic Qualifiers: Lower urinary tract symptom detail: unspecified (6) GERD (gastroesophageal reflux disease) Code(s): K21.9 - GASTRO-ESOPHAGEAL REFLUX DISEASE WITHOUT ESOPHAGITIS Status: Chronic Qualifiers: Esophagitis presence: esophagitis presence not specified Qualified Code(s) : K21.9 - Gastro-esophageal reflux disease without esophagitis (7) Anemia, normocytic normochromic Code(s): D64.9 - ANEMIA, UNSPECIFIED Status: Acute (8) Diabetes type 2, controlled Code(s): E11.9 - TYPE 2 DIABETES MELLITUS WITHOUT COMPLICATIONS Status: Chronic Qualifiers: Diabetes mellitus skilled nursing insulin use: unspecified skilled nursing insulin use status - Plan * Subdural hematoma s/p craniotomy - appreciate care by NS * A Fib rate controlled with diltiazem gtt and oral metoprolol * Ventilator - appreciate care by Pulmonology * Potassium - has received 40 mEq by OG tube, and receiving 20 mEq now. REcheck at 13:00 and continue ot replace prn * * DM - controlled - may need to add long-acting insulin when diet advanced * Anemia - slightly worse, no significant bleeding per RN - update type and screen * * dvt prophy - scd's * gi prophy - protonix * code status full * * reviewed plan of care with RN. Pt remains at high risk in current condition. .
[2018-01-09] MEDS: Diltiazem 125 MG in Sodium Chloride 0.9% 100 ML IVPB SCH ×2 (10:44→18:11)
[2018-01-09 13:33] LABS: Anion Gap 16 mmol/L (10-20); BUN (Urea Nitrogen) 10 mg/dL (8.4-25.7); Calc. Creatinine Clearance 112 mL/min (70-130); Calcium 8.8 mg/dL (7.8-10.44); Carbon Dioxide 17 mmol/L (23-31); Chloride 115 mmol/L (98-107); Estimated GFR-MDRD Greater than 90; Glucose 141 mg/dL (83-110); Potassium 3.7 mmol/L (3.5-5.1); Sodium 144 mmol/L (136-145)
--- NOTE | 2018-01-09 14:02 | PRG ---
DATE OF SERVICE: 01/09/2018 Mr. Mcclellan is hospital day 7, postoperative day 2 from a left-sided craniotomy for acute subdural romel michael evacuation. He is awake, alert, and attends to the examiner. He follows commands in all 4 extr emities, a bit more slow in the right upper extremity. Overall, he is doing very well. We will leav e his drain in for likely 1-2 more days and the plan is for extubation today.
--- NOTE | 2018-01-09 14:33 | CON ---
DATE OF CONSULTATION: 01/09/2018 REASON FOR CONSULTATION: Atrial fibrillation and recent subdural hematoma on anticoagulation therapy . HISTORY OF PRESENT ILLNESS: Mr. Mcclellan is a pleasant 82-year-old gentleman who was last seen and eval uated in the past. He was initially seen and evaluated while at [facility] earlier in the year. He was found to be in atrial fibrillation and was placed on anticoagulation therapy. I first saw him as a new patient on 12/26/2017. At that time, he continued to be in chronic atrial fibrillation with m inimal to no symptoms. He recently fell and hit the left side of his head. He was found to have a subdural hematoma. He wa s evaluated by Neurosurgery. During my evaluation, he is currently intubated. He underwent a cranio vishal. He is currently on IV Cardizem. PAST MEDICAL HISTORY: Atrial fibrillation, hypertension and diabetes mellitus. PAST SURGICAL HISTORY: Tonsillectomy, shoulder repair. ALLERGIES: None. HOME MEDICATIONS: Include Eliquis, aspirin, Lasix, tamsulosin, gabapentin, temazepam, promethazine, diltiazem, omeprazole, Centrum Silver, metoprolol, docusate, and tizanidine. REVIEW OF SYSTEMS: Unobtainable. PHYSICAL EXAMINATION: GENERAL: He is currently intubated and sedated. VITAL SIGNS: Blood pressure 120/70, pulse 94, respirations 20. NEUROLOGIC: The patient is alert and oriented times 3 with no focal neurologic deficits. HEENT: Sclerae without icterus. Mouth has moist mucous membranes with normal pallor. NECK: No JVD. Carotid upstroke brisk. No bruits bilaterally. LUNGS: Clear to auscultation with unlabored respirations. BACK: No scoliosis or kyphosis. CARDIAC: Normal S1 and S2. No S3 or S4 noted. No significant rubs, murmurs, thrills, or gallops no sameera throughout the precordium. PMI is not displaced. There is no parasternal heave. Irregularly ir regular. ABDOMEN: Soft, nontender, nondistended. No peritoneal signs present. No hepatosplenomegaly. No abnormal striae. EXTREMITIES: 2+ femoral and 2+ dorsalis pedis pulses. No cyanosis, clubbing, or edema. SKIN: No gross abnormalities. LABORATORY DATA: On 01/08/2018, hemoglobin 9.8, white blood cell count 15.2, creatinine performed. IMPRESSION: 1. Chronic atrial fibrillation. 2. Subdural hematoma. 3. Recent craniotomy. 4. Diabetes mellitus. 5. Hypertension. RECOMMENDATIONS: At this point, continue IV Cardizem for rate control. Avoid anticoagulation therap y. Also, avoid aspirin. I will reassess once his mental status is improved and he is able to take p .o. We will then wean off the Cardizem and add p.o. Cardizem. Last echo dated 12/01/2017 did show E F of 50%-55%.
--- NOTE | 2018-01-10 00:21 | PRG ---
DATE OF SERVICE: 01/09/2018 SUBJECTIVE: Kera Mcclellan is much more alert today. He met criteria for extubation. Estimated volume was only 8 liters a minute. He had no leak. He can move all his extremities. OBJECTIVE: VITAL SIGNS: His heart rate was in the 90s, blood pressure this evening is 116/59, respiratory rate is 20. Intake and output coming in today was negative 809 mL. LUNGS: His lungs are clear. HEART: Regular rhythm. ABDOMEN: Abdomen is soft. EXTREMITIES: Without asymmetry. IMAGING DATA: Chest radiograph today showed no alveolar infiltrates. LABORATORY DATA: White count 14.6, hemoglobin 8.5, platelets 250. Sodium 144, potassium 3.7, chloride 115, bicarbonate 17, BUN 10, creatinine 0.5. PH 7.44, CO2 of 33, pO2 of 115. IMPRESSION: Status post mechanical ventilation for craniotomy. It was felt he was a candidate for e xtubation. This has been done successfully. He has done well post-extubation. He was seen by Cardiology today in consultation for issues surrounding anticoagulation and atrial fib rillation. Obviously, should not be anticoagulated for quite some time and with his fall risk maybe should never be anticoagulated again. All of this would be dependent on how he progresses with physi tami therapy. Critical care time was 30 minutes.
[2018-01-10] MEDS: Diltiazem 125 MG in Sodium Chloride 0.9% 100 ML IVPB SCH (01:48)
[2018-01-10] MEDS: CEFAZOLIN 1 GM in Sodium Chloride 0.9% 100 ML IVPB SCH ×3 (05:03→22:54)
[2018-01-10 05:24] LABS: Hemoglobin 8.5 g/dL (14.0-18.0)
[2018-01-10 05:46] LABS: Anion Gap 14 mmol/L (10-20); BUN (Urea Nitrogen) 12 mg/dL (8.4-25.7); Calc. Creatinine Clearance 116 mL/min (70-130); Calcium 8.4 mg/dL (7.8-10.44); Carbon Dioxide 20 mmol/L (23-31); Chloride 111 mmol/L (98-107); Estimated GFR-MDRD Greater than 90; Glucose 134 mg/dL (83-110); Magnesium 2.1 mg/dL (1.6-2.6); Potassium 3.3 mmol/L (3.5-5.1); Sodium 142 mmol/L (136-145)
[2018-01-10 06:43] LABS: Mean Corpuscular HGB CONC 31.4 g/dL (32.0-36.0); Mean Corpuscular Hemoglobin 27.2 pg (27.0-31.0); Mean Corpuscular Volume 86.5 fL (78.0-98.0); Mean Platelet Volume 11.4 fL (7.4-10.4); Platelet Count 230 thou/uL (130-400); RBC Distribution Width 19.2 % (11.5-14.5); Red Blood Cell (RBC) Count 3.12 mill/uL (4.70-6.10); White Blood Cell (WBC) Count 12.6 thou/uL (4.8-10.8)
[2018-01-10 07:06] LABS: Band 15 % (5-11); Basophilic Stippling SLIGHT = 1-2 cells (100X) (None Seen); Giant Platelets SLIGHT; Large Platelets MODERATE; Lymphocytes 11 % (21-51); MDiff Complete? YES; Monocytes 29 % (0-10); Neutrophil 42 % (42-75); PLT Morphology Comment Appears Adequate; Polychromasia MODERATE = 3-4 cells (100X) (0-2/hpf); Reactive Lymphocytes 3 % (0-10)
[2018-01-10] MEDS: Pantoprazole 40 MG GRANULES PACKET PO SCH (09:02)
[2018-01-10] MEDS: Furosemide 40 MG TAB PO SCH (09:03)
[2018-01-10] MEDS: Metoprolol Tartrate 25 MG TAB PO SCH ×2 (09:03→20:03)
--- NOTE | 2018-01-10 09:40 | RAD ---
PORTABLE CHEST: Date: 01-10-18 Provided Clinical History: Respiratory insufficiency. FINDINGS: Comparison 01-09-18. Cardiac silhouette appears enlarged. Interval removal of endotracheal tube and en teric catheter. Persistent left basilar pleural parenchymal opacity. Right midlung zone parenchymal opacity. Similar to the prior exam. There is no evidence for pneumothorax. IMPRESSION: 1. Interval extubation and removal of enteric catheter with persistent right perihilar and left basil ar opacity. POS: [facility]
--- NOTE | 2018-01-10 09:55 | PRG ---
DATE OF SERVICE: 01/10/2018 Mr. Mcclellan is now postoperative day #3, having undergone left-sided craniotomy for evacuation of left subdural hematoma. The patient was extubated yesterday and he is verbal today. He is awake and over all neurologically improving. He answers questions appropriately. He is oriented to person and unde rstand that he is in the hospital, though he does not know what the date is. He follows commands in all 4 extremities, though does continue to have weakness in the right upper and right lower extremiti es. This has overall improved. He has had no evidence of seizure activity and remains on Keppra. H is drain output was 70 mL over the last 24 hours and although the output is trending downward, I woul d like to keep this in today. His potassium is low and our Hospitalist are working to correct this f or him. He will remain on Ancef with the continued drain. The plan will be to remove his drain stevie rrow and likely get him to the Stroke Unit tomorrow if he continues to improve. He is on a mechanica l soft diet at this time as he is swallowing well. Overall, I am very pleased with the patient's imp rovement neurologically. We will continue to follow him closely. Please call with any questions or changes in patient's neurologic status, but otherwise he is doing well.
--- NOTE | 2018-01-10 10:35 | PDOC.PN ---
- Subjective Encounter Start Date: 01/10/18 (f/u hypokalemia) Encounter Start Time: 10:32 Subjective: pt extubated yesterday. able to take po. denies any pain -: no overnight events. Pt states he is thirsty. - Objective Vital Signs & Weight: Vital Signs (12 hours) Temp Pulse Ox 01/10/18 08:00 98 F 01/10/18 07:26 96 01/10/18 03:55 98 01/10/18 03:00 97.6 F 01/09/18 23:00 98.2 F Weight Admit Weight 177 lb Weight 177 lb 14.609 oz Most Recent Monitor Data Heart Rate from ECG 86 NIBP 113/52 NIBP BP-Mean 88 Respiration from ECG 20 SpO2 98 I&O: 01/09/18 01/10/18 01/11/18 06:59 06:59 06:59 Intake Total 631 1970 Output Total 1440 1690 80 Balance -809 280 -80 Result Diagrams: 01/10/18 05:13 01/10/18 05:13 Additional Labs: Accuchecks 01/09/18 01/09/18 01/09/18 21:11 16:29 11:55 POC Glucose 134 H 136 H 139 H EKG Reviewed by me: Yes (tele - a fib currently in the 80's) Phys Exam - Physical Examination Constitutional: NAD ecchymosis along/around nose Respiratory: no wheezing, no rales, no rhonchi Cardiovascular: no significant murmur, irregular Gastrointestinal: soft, non-tender, no distention, positive bowel sounds Musculoskeletal: no edema, pulses present Neurological: non-focal, moves all 4 limbs Skin: no rash Dx/Plan (1) Hypokalemia Code(s): E87.6 - HYPOKALEMIA Status: Acute (2) Subdural hematoma Code(s): S06.5X9A - TRAUM SUBDR HEM W LOC OF UNSP DURATION, INIT Status: Acute Comment: s/p KCentra X1 01/02 and FFP 01/03, craniotomy 01/07 (3) Atrial fibrillation Code(s): I48.91 - UNSPECIFIED ATRIAL FIBRILLATION Status: Acute Qualifiers: Atrial fibrillation type: unspecified Qualified Code(s): I48.91 - Unspecified atrial fibrillation (4) Pulmonary hypertension Code(s): I27.20 - PULMONARY HYPERTENSION, UNSPECIFIED Status: Chronic (5) BPH (benign prostatic hyperplasia) Code(s): N40.0 - BENIGN PROSTATIC HYPERPLASIA WITHOUT LOWER URINRY TRACT SYMP Status: Chronic Qualifiers: Lower urinary tract symptom detail: unspecified (6) GERD (gastroesophageal reflux disease) Code(s): K21.9 - GASTRO-ESOPHAGEAL REFLUX DISEASE WITHOUT ESOPHAGITIS Status: Chronic Qualifiers: Esophagitis presence: esophagitis presence not specified Qualified Code(s) : K21.9 - Gastro-esophageal reflux disease without esophagitis (7) Anemia, normocytic normochromic Code(s): D64.9 - ANEMIA, UNSPECIFIED Status: Acute (8) Diabetes type 2, controlled Code(s): E11.9 - TYPE 2 DIABETES MELLITUS WITHOUT COMPLICATIONS Status: Chronic Qualifiers: Diabetes mellitus intermediate insulin use: 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 Drain to remain in place today. * A Fib rate controlled - appreciate Cardiology consult - wean dilt. oral dilt started today * * extubated yesterday - appreciate Pulmonology consult * Potassium low again, on daily lasix as home medicine - will increase amount of potassium and change to bid * * DM - controlled * Anemia - stable * bps well controlled * * dvt prophy - scd's * gi prophy - taking PO - will discontinue this * code status full * * reviewed plan of care with RN. Pt remains at high risk in current condition.
--- NOTE | 2018-01-10 10:47 | PRG ---
DATE OF SERVICE: 01/10/2018 Mr. Mcclellan is a little more verbal. He actually will follow commands for me today. He would hold up his hand on both sides, would not hold up one finger. PHYSICAL EXAMINATION: VITAL SIGNS: He is afebrile. He still has his drain in. Oximetry is 96 on 2 liters, blood pressure 113/52, heart rate 86, respiratory rates in the teens. LUNGS: Clear. HEART: Regular rhythm. ABDOMEN: Soft and nontender. EXTREMITIES: Without clubbing, cyanosis, or edema. He moves all 4 extremities to command now. LABORATORY: White count is 12.6, hemoglobin 8.5, platelets 230. Sodium 142, potassium 3.3, chloride 111, bicarbonate 20, BUN 12, creatinine 0.55. IMPRESSION: 1. Status post craniotomy for a fall induced subdural hematoma with progression. 2. Impending herniation. He is clinically dramatically improved post-extubation. We will continue critical care management fo r now.
--- NOTE | 2018-01-10 15:02 | PDOC.CTH ---
Cardiology Progress Note - Subjective Pt confused. Extubated. Family present. - Objective Vital Signs Temp Pulse Pulse Pulse Resp BP BP 01/10/18 12:00 98.1 F 01/10/18 09:54 90 92 131/76 118/62 01/10/18 08:00 98 F 88 17 01/10/18 07:26 01/10/18 03:55 Pulse Ox Pulse Ox Pulse Ox 01/10/18 12:00 01/10/18 09:54 96 99 01/10/18 08:00 98 01/10/18 07:26 96 01/10/18 03:55 98 Admit Weight 177 lb Weight 177 lb 14.609 oz 01/09/18 01/10/18 01/11/18 06:59 06:59 06:59 Intake Total 631 1970 393 Output Total 1440 1690 460 Balance -809 280 -67 - Physical Examination General/Neuro: NAD Neck: carotid US brisk, no JVD present Lungs: CTA Heart: other: (irr) Abdomen: NT/ND, soft Extremities: + femoral B - Labs Result Diagrams: 01/10/18 05:13 01/10/18 05:13 - Assessment/Plan SDH Afib Family states pt fell after tripping. He is not susceptible to falling. At this point, hold ACT. When ok with neurosurgery, consider restarting ACT ( pt not prone to falling) or consider watchman device. At this point, I would recommend watchman Continue PO CCB. Off IV CCB
[2018-01-11] MEDS: CEFAZOLIN 1 GM in Sodium Chloride 0.9% 100 ML IVPB SCH (06:19)
[2018-01-11 07:21] LABS: Hemoglobin 9.7 g/dL (14.0-18.0); Mean Corpuscular HGB CONC 32.1 g/dL (32.0-36.0); Mean Corpuscular Hemoglobin 27.7 pg (27.0-31.0); Mean Corpuscular Volume 86.2 fL (78.0-98.0); Mean Platelet Volume 8.7 fL (7.4-10.4); Platelet Count 232 thou/uL (130-400); RBC Distribution Width 19.4 % (11.5-14.5); Red Blood Cell (RBC) Count 3.48 mill/uL (4.70-6.10); White Blood Cell (WBC) Count 13.5 thou/uL (4.8-10.8)
[2018-01-11 07:25] LABS: Anion Gap 14 mmol/L (10-20); BUN (Urea Nitrogen) 7 mg/dL (8.4-25.7); Calc. Creatinine Clearance 118 mL/min (70-130); Calcium 8.4 mg/dL (7.8-10.44); Carbon Dioxide 21 mmol/L (23-31); Chloride 105 mmol/L (98-107); Estimated GFR-MDRD Greater than 90; Glucose 115 mg/dL (83-110); Potassium 3.6 mmol/L (3.5-5.1); Sodium 136 mmol/L (136-145)
[2018-01-11 08:31] LABS: Band 16 % (5-11); Lymphocytes 8 % (21-51); MDiff Complete? YES; Metamyelocyte 2 % (0-0); Monocytes 18 % (0-10); Myelocyte 2 % (0-0); Neutrophil 40 % (42-75); PLT Morphology Comment Appears Adequate; Polychromasia SLIGHT = 2-3 cells (100X) (0-2/hpf); Reactive Lymphocytes 14 % (0-10)
[2018-01-11] MEDS: Metoprolol Tartrate 25 MG TAB PO SCH ×2 (09:33→20:24)
[2018-01-11] MEDS: Pantoprazole 40 MG GRANULES PACKET PO SCH (09:34)
[2018-01-11] MEDS: Furosemide 40 MG TAB PO SCH (09:35)
--- NOTE | 2018-01-11 09:47 | RAD ---
CHEST 1 VIEW: Date: 01/11/18 HISTORY: Ventilated patient. COMPARISON: Chest radiograph from prior day. FINDINGS: There are perihilar air space opacities. The edema is improving. No pneumothorax. Small effusions. He art size enlarged. IMPRESSION: Very mild interval improvement in pulmonary edema. POS: [facility]
--- NOTE | 2018-01-11 10:05 | PRG ---
DATE OF SERVICE: 01/11/2018 Mr. Mcclellan is now postoperative day #4, having undergone left craniotomy for left subdural evacuation. The patient continues to improve. He is verbal, and although sometimes he does have some continued dysphagia. He follows commands in all 4 extremities, again with moderate right upper and right lowe r extremity weakness, stable from yesterday. I would like him to continue to work with therapies and I have removed his BAILEY drain. More than likely he will be stable for transition to the stroke unit, although I do not want him to have q.2 hour neuro checks. We can discontinue the Ancef, but continue Keppra and he has had no evidence of seizure activity. His sodium is improving and our hospitalists are managing that and we very much appreciate their help. Overall, Mr. Mcclellan does appear to be stab le from yesterday, which is certainly good news. I would like him to work with therapies. Please ca ll with any questions or changes in patient's neurologic status.
--- NOTE | 2018-01-11 10:25 | PDOC.PN ---
- Subjective Encounter Start Date: 01/11/18 (f/u hypokalemia) Encounter Start Time: 10:24 Subjective: BAILEY tube removed today. No other events. - Objective Vital Signs & Weight: Vital Signs (12 hours) Temp Pulse Resp Pulse Ox 01/11/18 09:33 103 H 01/11/18 08:00 98.4 F 103 H 24 H 97 01/11/18 07:00 98.4 F 01/11/18 04:00 98.4 F Weight Admit Weight 177 lb Weight 181 lb 7.047 oz Most Recent Monitor Data Heart Rate from ECG 109 NIBP 124/73 NIBP BP-Mean 91 Respiration from ECG 24 SpO2 97 I&O: 01/10/18 01/11/18 01/12/18 06:59 06:59 06:59 Intake Total 1970 2211 340 Output Total 1690 1479 125 Balance 280 732 215 Result Diagrams: 01/11/18 06:55 01/11/18 06:55 Additional Labs: Accuchecks 01/10/18 01/10/18 23:34 11:33 POC Glucose 104 156 H EKG Reviewed by me: Yes (a fib with rate 90-100's) Phys Exam - Physical Examination Constitutional: NAD ecchymosis around nose Respiratory: no wheezing, no rales, no rhonchi Cardiovascular: no significant murmur, irregular Gastrointestinal: soft, non-tender, no distention, positive bowel sounds Musculoskeletal: pulses present Deviation from normal: pt sleeping, easily arouses Skin: no rash Dx/Plan (1) Hypokalemia Code(s): E87.6 - HYPOKALEMIA Status: Acute (2) Subdural hematoma Code(s): S06.5X9A - TRAUM SUBDR HEM W LOC OF UNSP DURATION, INIT Status: Acute Comment: s/p KCentra X1 01/02 and FFP 01/03, craniotomy 01/07 (3) Atrial fibrillation Code(s): I48.91 - UNSPECIFIED ATRIAL FIBRILLATION Status: Chronic Qualifiers: Atrial fibrillation type: unspecified Qualified Code(s): I48.91 - Unspecified atrial fibrillation (4) Pulmonary hypertension Code(s): I27.20 - PULMONARY HYPERTENSION, UNSPECIFIED Status: Chronic (5) BPH (benign prostatic hyperplasia) Code(s): N40.0 - BENIGN PROSTATIC HYPERPLASIA WITHOUT LOWER URINRY TRACT SYMP Status: Chronic Qualifiers: Lower urinary tract symptom detail: unspecified (6) GERD (gastroesophageal reflux disease) Code(s): K21.9 - GASTRO-ESOPHAGEAL REFLUX DISEASE WITHOUT ESOPHAGITIS Status: Chronic Qualifiers: Esophagitis presence: esophagitis presence not specified Qualified Code(s) : K21.9 - Gastro-esophageal reflux disease without esophagitis (7) Anemia, normocytic normochromic Code(s): D64.9 - ANEMIA, UNSPECIFIED Status: Acute (8) Diabetes type 2, controlled Code(s): E11.9 - TYPE 2 DIABETES MELLITUS WITHOUT COMPLICATIONS Status: Chronic Qualifiers: Diabetes mellitus half-way insulin use: unspecified half-way insulin use status - Plan * Subdural hematoma s/p craniotomy - appreciate care by NS. Drain removed. * A Fib rate controlled - appreciate Cardiology consult - oral dilt and metoprolol. * * On lasix and potassium repleted * * DM - controlled * Anemia - stable * bps well controlled * * dvt prophy - scd's * gi prophy - taking PO - not indicated * code status full * * reviewed plan of care with RN. Pt remains at high risk in current condition. 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 Aranda - stopped per pt request. WBC 2.4 in generally 2-4. Nothing to do at this time for this issue.
--- NOTE | 2018-01-11 13:02 | PQF ---
CLINICAL DOCUMENTATION IMPROVEMENT CLARIFICATION FORM: ICD-10 Updated PLEASE DO AN ADDENDUM TO THE PROGRESS NOTE WITH ANY DOCUMENTATION UPDATES OR ADDITIONS AND CARRY THROUGH TO DC SUMMARY. THANK YOU. DATE: 01/11/18 ATTN: DR. DOBBS Please exercise your independent, professional judgment in responding to the clarification form. Clinical indicators are provided on the bottom of this form for your review Please check appropriate box(s): [ x] Cerebral edema / Vasogenic edema [ ] Compression of brain Due to: [ ] Intracranial tumor [ ] Intracranial hematoma [ ] Acute cerebral infarction [ ] Traumatic brain injury [ ] Acute hypoxic ischemic encephalopathy [ ] Obstructive hydrocephalus [ x ] Other diagnosis ___subdural hematoma [ ] Unable to determine In addition, please specify: Present on Admission (POA): [ ] Yes [ ] No [x ] Unable to determine For continuity of documentation, please document condition throughout progress notes and discharge summary. Thank You. CLINICAL INDICATORS - SIGNS / SYMPTOMS / LABS OP NOTE 01/08: "ENLARGING LEFT ACUTE SUBDURAL HEMATOMA WITH NEUROLOGIC DECLINE, MASS EFFECT AND MIDLINE SHIFT." CT SCAN REPORT 01/07: "THERE IS GREATER EFFACEMENT OF THE LEFT CEREBRAL HEMISPHERE. VASOGENIC EDEMA THROUGHOUT THE LEFT CEREBRAL HEMISPHERE HAS INCREASED." RISKS: SUBDURAL HEMATOMA TREATMENT: BRAIN CT CRANIOTOMY FOR SUBDURAL HEMATOMA EVACUATION CRITICAL CARE MONITORING (This form is maintained as a part of the permanent medical record) 2014 [employer]. All Rights Reserved [email or web address] Office: [phone] [facility]
--- NOTE | 2018-01-11 13:26 | PDOC.CTH ---
Cardiology Progress Note - Subjective Patient without complaints. Getting bath now. Pulse well-controlled per tele and nurse report. - Objective Vital Signs Temp Pulse Resp Pulse Ox 01/11/18 12:00 97.9 F 01/11/18 09:33 103 H 01/11/18 08:00 98.4 F 103 H 24 H 97 01/11/18 07:00 98.4 F 01/11/18 04:00 98.4 F Admit Weight 177 lb Weight 181 lb 7.047 oz 01/10/18 01/11/18 01/12/18 06:59 06:59 06:59 Intake Total 1970 2211 560 Output Total 1690 1479 235 Balance 280 732 325 - Physical Examination General/Neuro: alert & oriented x3 Lungs: CTA Heart: other: (IRR) Extremities: + edema B - Telemetry Telemetry Rhythm: AFib. Rate 90s - Labs Result Diagrams: 01/11/18 06:55 01/11/18 06:55 - Assessment/Plan 1. Subdural hematoma s/p craniotomy 2. Chronic AF 3. HTN 4. DM-II 5. Anemia Stable cardiac status. Continue po meds. Transfer to tele when room available. No OAC at this time. Will discuss possible Watchman vs [place] in the future.
--- NOTE | 2018-01-11 14:52 | ULT ---
VENOUS DUPLEX SONOGRAM BILATERAL LOWER EXTREMITIES: 01/11/18 HISTORY: Bilateral leg pain and edema. Recent surgery. FINDINGS: Each common femoral vein and greater saphenous junction were evaluated along with each femoral, deep femoral, popliteal, and posterior tibial vein. There is good color and spectral doppler flow, narcisa vimal, and augmentation. IMPRESSION: No sonographic evidence of DVT within either lower extremity. POS: [facility]
--- NOTE | 2018-01-11 15:46 | PRG ---
DATE OF SERVICE: 01/11/2018 SUBJECTIVE: Kera Mcclellan remains stable. My opinion is very similar neurological exam as yesterday. OBJECTIVE: VITAL SIGNS: His heart rate 92, blood pressure 102/56, respiratory rate is 21. Intake and output is positive 732. LUNGS: Clear. HEART: Regular rhythm. ABDOMEN: Soft. EXTREMITIES: Without asymmetry. LABORATORY DATA: White count 13.5, hemoglobin 9.7, platelets 232,000. Sodium 136, potassium 3.6, ch loride 105, bicarbonate 21, BUN 7, creatinine 0.55. IMPRESSION: Status post craniotomy for subdural hematoma associated with fall with impending herniat ion. Clinically, stable post-extubation. PLAN: Continue observation in Critical Care Unit for now.
[2018-01-11] MEDS: Acetaminophen 325 MG TAB PO PRN (20:24)
[2018-01-12 04:56] LABS: Anion Gap 12 mmol/L (10-20); BUN (Urea Nitrogen) 6 mg/dL (8.4-25.7); Calc. Creatinine Clearance 136 mL/min (70-130); Calcium 8.5 mg/dL (7.8-10.44); Carbon Dioxide 23 mmol/L (23-31); Chloride 101 mmol/L (98-107); Estimated GFR-MDRD Greater than 90; Glucose 114 mg/dL (83-110); Potassium 3.4 mmol/L (3.5-5.1); Sodium 133 mmol/L (136-145)
[2018-01-12 06:37] LABS: Anisocytosis SLIGHT = 6-15 cells (100X) (0-5/hpf); Band 20 % (5-11); Hemoglobin 9.6 g/dL (14.0-18.0); Lymphocytes 6 % (21-51); MDiff Complete? YES; Mean Corpuscular Hemoglobin 27.9 pg (27.0-31.0); Mean Corpuscular Volume 84.6 fL (78.0-98.0); Mean Platelet Volume 8.7 fL (7.4-10.4); Monocytes 26 % (0-10); Neutrophil 46 % (42-75); Platelet Count 207 thou/uL (130-400); RBC Distribution Width 19.3 % (11.5-14.5); Red Blood Cell (RBC) Count 3.45 mill/uL (4.70-6.10)
[2018-01-12] MEDS ORDERED: Potassium Chloride 10 MEQ in Premix Bag 1 BAG IVPB SCH (07:00)
[2018-01-12] MEDS: Potassium Chloride 20 MEQ in Premix Bag 1 BAG IVPB SCH ×2 (08:02→09:37)
[2018-01-12] MEDS: Acetaminophen 325 MG TAB PO PRN (08:09)
--- NOTE | 2018-01-12 08:17 | PDOC.PN ---
- Subjective Encounter Start Date: 01/12/18 (f/u DM) Encounter Start Time: 08:15 Subjective: No overnight events. Pt remains in ICU awaiting a bed on stroke unit -: Eating well per RN. Pt reports headache currently - Objective Vital Signs & Weight: Vital Signs (12 hours) Temp Pulse Resp Pulse Ox 01/12/18 07:10 97.2 F L 92 19 98 01/12/18 06:58 97.2 F L 01/12/18 04:00 97.5 F L 01/12/18 00:00 97.6 F Weight Admit Weight 177 lb Weight 187 lb 6.287 oz Most Recent Monitor Data Heart Rate from ECG 94 NIBP 116/61 NIBP BP-Mean 78 Respiration from ECG 21 SpO2 99 I&O: 01/11/18 01/12/18 01/13/18 06:59 06:59 06:59 Intake Total 2211 1250 Output Total 1479 2735 Balance 732 -1485 Result Diagrams: 01/12/18 03:28 01/12/18 03:28 Additional Labs: Accuchecks 01/11/18 01/11/18 20:23 16:06 POC Glucose 120 H 116 H EKG Reviewed by me: Yes (tele - a fib with rates 110's) Phys Exam - Physical Examination Constitutional: NAD Respiratory: no wheezing, no rhonchi rales at left base Cardiovascular: no significant murmur, irregular Gastrointestinal: soft, non-tender, no distention, positive bowel sounds Musculoskeletal: no edema Neurological: non-focal, moves all 4 limbs Deviation from normal: affect about the same as yesterday - short responses to questions Skin: no rash Dx/Plan (1) Hypokalemia Code(s): E87.6 - HYPOKALEMIA Status: Acute (2) Subdural hematoma Code(s): S06.5X9A - TRAUM SUBDR HEM W LOC OF UNSP DURATION, INIT Status: Acute Comment: s/p KCentra X1 01/02 and FFP 01/03, craniotomy 01/07 (3) Atrial fibrillation Code(s): I48.91 - UNSPECIFIED ATRIAL FIBRILLATION Status: Chronic Qualifiers: Atrial fibrillation type: unspecified Qualified Code(s): I48.91 - Unspecified atrial fibrillation (4) Pulmonary hypertension Code(s): I27.20 - PULMONARY HYPERTENSION, UNSPECIFIED Status: Chronic (5) BPH (benign prostatic hyperplasia) Code(s): N40.0 - BENIGN PROSTATIC HYPERPLASIA WITHOUT LOWER URINRY TRACT SYMP Status: Chronic Qualifiers: Lower urinary tract symptom detail: unspecified (6) GERD (gastroesophageal reflux disease) Code(s): K21.9 - GASTRO-ESOPHAGEAL REFLUX DISEASE WITHOUT ESOPHAGITIS Status: Chronic Qualifiers: Esophagitis presence: esophagitis presence not specified Qualified Code(s) : K21.9 - Gastro-esophageal reflux disease without esophagitis (7) Anemia, normocytic normochromic Code(s): D64.9 - ANEMIA, UNSPECIFIED Status: Acute (8) Diabetes type 2, controlled Code(s): E11.9 - TYPE 2 DIABETES MELLITUS WITHOUT COMPLICATIONS Status: Chronic Qualifiers: Diabetes mellitus manager intermediate insulin use: unspecified intermediate insulin use status (9) CML (chronic myelocytic leukemia) Code(s): C92.10 - CHRONIC MYELOID LEUK, BCR/ABL-POSITIVE, NOT ACHIEVE REMIS Status: Chronic - Plan * Subdural hematoma s/p craniotomy - appreciate care by NS. Continue therapy * A Fib rate controlled - appreciate Cardiology consult - oral dilt and metoprolol. Will need outpatient follow up regarding options for A Fib and when /if to resume anticoagulation in the future * * On lasix with low potassium again today - continue oral replacement and add IV replacement. Last magnesium check a few days ago was normal. * * Hx of CML - was on Chemo (Vaidaza) -with Dr. Aranda - stopped per pt request. WBC 2.4 in generally 2-4. Nothing to do at this time for this issue. * * DM - controlled * Anemia - stable * bps well controlled * * dvt prophy - scd's * gi prophy - taking PO - not indicated * code status full * * reviewed plan of care with RN. Pt remains at high risk in current condition. .
[2018-01-12] MEDS: Pantoprazole 40 MG GRANULES PACKET PO SCH (08:44)
[2018-01-12] MEDS: Metoprolol Tartrate 25 MG TAB PO SCH ×2 (08:44→20:46)
[2018-01-12] MEDS: Furosemide 40 MG TAB PO SCH (08:44)
[2018-01-12] MEDS ORDERED: Potassium Chloride 20 MEQ TAB PO SCH (12:00)
--- NOTE | 2018-01-12 12:07 | PRG ---
DATE OF SERVICE: 01/12/2018 Mr. Mcclellan is now 5 days out from left-sided frontotemporal craniotomy for acute subdural hematoma harish cuation. He is alert. He is able to tell us he is in the hospital. He certainly has delayed in his verbal responses. He weakly moves the right upper extremity, but certainly is not robust in this re luis alberto and still has significant weakness in the right upper and lower extremity, but he does move both extremities. He moves left upper and left lower extremity more robustly. His wound is healing well . We will stop his Keppra. The plan is for transfer to the stroke floor. We will continue to follo w him and we were very pleased at this point with his outcome.
--- NOTE | 2018-01-12 16:08 | PRG ---
DATE OF SERVICE: 01/12/2018 SUBJECTIVE: Mr. Mcclellan did well overnight. He had no complaints. OBJECTIVE: VITAL SIGNS: He is afebrile, heart rate is 88, respiratory rate is 18, oximetry is 94% on room air, blood pressure 123/70. LUNGS: Clear. HEART: Regular rhythm. ABDOMEN: Soft and nontender. EXTREMITIES: Without asymmetry or edema. He still has an expressive aphasia and moves his extremities equally now. LABORATORY DATA: His white count is 13.0, hemoglobin 9.6, platelets 207,000. Sodium 133, potassium 3.4, chloride 101, bicarb 23, BUN 6, creatinine 0.48. IMPRESSION: Status post craniotomy for large subdural associated with a fall, on anticoagulation. PLAN: Continue current care per Neurosurgery. Decision to move out of the Critical Care will be def erred to their judgment.
[2018-01-13 06:19] LABS: Anion Gap 11 mmol/L (10-20); BUN (Urea Nitrogen) 4 mg/dL (8.4-25.7); Calc. Creatinine Clearance 129 mL/min (70-130); Calcium 8.7 mg/dL (7.8-10.44); Carbon Dioxide 23 mmol/L (23-31); Chloride 100 mmol/L (98-107); Estimated GFR-MDRD Greater than 90; Glucose 112 mg/dL (83-110); Potassium 3.8 mmol/L (3.5-5.1); Sodium 130 mmol/L (136-145)
[2018-01-13 06:48] LABS: Anisocytosis SLIGHT = 6-15 cells (100X) (0-5/hpf); Band 13 % (5-11); Eosinophils 1 % (0-10); Hemoglobin 10.2 g/dL (14.0-18.0); Large Platelets SLIGHT; Lymphocytes 7 % (21-51); MDiff Complete? YES; Mean Corpuscular HGB CONC 31.6 g/dL (32.0-36.0); Mean Corpuscular Volume 85.6 fL (78.0-98.0); Mean Platelet Volume 10.4 fL (7.4-10.4); Metamyelocyte 1 % (0-0); Monocytes 33 % (0-10); Myelocyte 4 % (0-0); Neutrophil 41 % (42-75); PLT Morphology Comment Appears Increased; Platelet Count 220 thou/uL (130-400); RBC Distribution Width 19.5 % (11.5-14.5); Red Blood Cell (RBC) Count 3.76 mill/uL (4.70-6.10)
[2018-01-13 08:09] LABS: Sodium 131 mmol/L (136-145)
[2018-01-13] MEDS: Furosemide 40 MG TAB PO SCH (08:38)
[2018-01-13] MEDS: Metoprolol Tartrate 25 MG TAB PO SCH ×2 (08:38→22:14)
[2018-01-13] MEDS: Pantoprazole 40 MG GRANULES PACKET PO SCH (08:40)
--- NOTE | 2018-01-13 09:29 | PDOC.PN ---
- Subjective Encounter Start Date: 01/13/18 (f/u htn) Encounter Start Time: 09:29 Subjective: RN's report that pt is voiding a lot, deny any overnight events -: Pt reports pain, but unable to tell me where. Answering -: yes/no questions, speaking less than yesterday - Objective Vital Signs & Weight: Vital Signs (12 hours) Temp Pulse Resp BP BP Pulse Ox 01/13/18 08:38 100 110/60 01/13/18 07:43 97.3 F L 93 18 110/60 99 01/13/18 04:00 97.4 F L 99 18 128/66 94 L 01/13/18 00:00 98.2 F 91 19 120/66 97 Weight Admit Weight 177 lb Weight 175 lb 1 oz Most Recent Monitor Data Heart Rate from ECG 82 NIBP 112/63 NIBP BP-Mean 82 Respiration from ECG 21 SpO2 92 I&O: 01/12/18 01/13/18 01/14/18 06:59 06:59 06:59 Intake Total 1250 1210 Output Total 2735 800 Balance -1485 410 Result Diagrams: 01/13/18 05:14 01/13/18 11:53 Additional Labs: Accuchecks 01/13/18 01/12/18 01/12/18 06:03 22:42 11:22 POC Glucose 112 H 122 H 123 H EKG Reviewed by me: Yes (tele - afib 100's) Phys Exam - Physical Examination Constitutional: NAD decreased mentation and focus compared to yesterday Respiratory: no wheezing, no rales, no rhonchi, clear to auscultation bilateral Cardiovascular: no significant murmur, irregular Gastrointestinal: soft, non-tender, positive bowel sounds Musculoskeletal: no edema less movement on right than yesterday by my exam full movement on left Skin: no rash Deviation from normal: ecchymosis improving around nose Dx/Plan (1) Leukocytosis Code(s): D72.829 - ELEVATED WHITE BLOOD CELL COUNT, UNSPECIFIED Status: Acute (2) Hypokalemia Code(s): E87.6 - HYPOKALEMIA Status: Resolved (3) Subdural hematoma Code(s): S06.5X9A - TRAUM SUBDR HEM W LOC OF UNSP DURATION, INIT Status: Acute Comment: s/p KCentra X1 01/02 and FFP 7/26, craniotomy 01/07 (4) Atrial fibrillation Code(s): I48.91 - UNSPECIFIED ATRIAL FIBRILLATION Status: Chronic Qualifiers: Atrial fibrillation type: unspecified Qualified Code(s): I48.91 - Unspecified atrial fibrillation (5) Pulmonary hypertension Code(s): I27.20 - PULMONARY HYPERTENSION, UNSPECIFIED Status: Chronic (6) BPH (benign prostatic hyperplasia) Code(s): N40.0 - BENIGN PROSTATIC HYPERPLASIA WITHOUT LOWER URINRY TRACT SYMP Status: Chronic Qualifiers: Lower urinary tract symptom detail: unspecified (7) GERD (gastroesophageal reflux disease) Code(s): K21.9 - GASTRO-ESOPHAGEAL REFLUX DISEASE WITHOUT ESOPHAGITIS Status: Chronic Qualifiers: Esophagitis presence: esophagitis presence not specified Qualified Code(s) : K21.9 - Gastro-esophageal reflux disease without esophagitis (8) Anemia, normocytic normochromic Code(s): D64.9 - ANEMIA, UNSPECIFIED Status: Acute (9) Diabetes type 2, controlled Code(s): E11.9 - TYPE 2 DIABETES MELLITUS WITHOUT COMPLICATIONS Status: Chronic Qualifiers: Diabetes mellitus half-way insulin use: unspecified half-way insulin use status (10) CML (chronic myelocytic leukemia) Code(s): C92.10 - CHRONIC MYELOID LEUK, BCR/ABL-POSITIVE, NOT ACHIEVE REMIS Status: Chronic (11) Hyponatremia Code(s): E87.1 - HYPO-OSMOLALITY AND HYPONATREMIA Status: Acute - Plan * Subdural hematoma s/p craniotomy - appreciate care by NS. Pt with decreased mentation and movement on right side compared to yesterday - will order stat CT head in discussion with NS who will review images * * A Fib rate controlled - appreciate Cardiology consult - oral dilt and metoprolol. No episodes of hypotension noted - however pt's bp on lower side of normal - may be affecting his mentation. Hold parameters on both medications. * Needs outpatient f/u with cardiology on when/if anticoagulation * * Hyponatremia - mild yesterday and worse today. Fluid restrict, d/c lasix, recheck this afternoon. Urine studies ordered, however anticipate they will be affected by lasix. 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 Check glucose now. * * Leukocytosis in high risk patient - check cultures, CXR. No clear source for infection, afebrile - monitor for change. No indication to start antibiotics at this time, will maintain a low threshold. * * Hx of CML - was on Chemo (Vaidaza) -with Dr. Aranda - stopped per pt request. WBC 2.4 in generally 2-4. Nothing to do at this time for this issue. * * DM - controlled * Anemia - stable * * dvt prophy - scd's * gi prophy - taking PO - not indicated * code status full * * reviewed plan of care with RN. Pt remains at high risk in current condition.
[2018-01-13] MEDS ORDERED: levETIRAcetam In NaCl (Iso-Os) 250 MG in Premix Bag 1 BAG IVPB SCH ×2 (10:17→21:00)
[2018-01-13] MEDS ORDERED: ADMIXTURE FEE IVPB SCH (10:30)
[2018-01-13] MEDS ORDERED: SODIUM CHLORIDE IVPB SCH (10:30)
[2018-01-13] MEDS ORDERED: LEVETIRACETAM IVPB SCH (10:30)
--- NOTE | 2018-01-13 11:54 | RAD ---
CHEST 1 VIEW: Date: 01/13/18 HISTORY: Elevated white blood cell count. COMPARISON: Radiograph dated 01/11/18. FINDINGS: Small effusions. Lungs are hypoinflated with vascular crowding and spurious enlargement of the cardia c silhouette. There are calcified bodies in left axillary pouch, as well as bilateral rotator cuff ar thropathy. IMPRESSION: No acute intrathoracic abnormality. Lung hypoinflation. No significant edema. POS: [facility]
[2018-01-13 12:15] LABS: Sodium 131 mmol/L (136-145)
--- NOTE | 2018-01-13 12:18 | CT ---
CT BRAIN NONCONTRAST: DATE: 01/13/18 TIME: 1001 hours HISTORY: 82-year-old male with worsening altered mental state. Status post craniotomy. COMPARISON: 01/08/18. FINDINGS: Again noted are the recent left frontotemporal craniotomy changes. Deep to that, the mixed-age small left lateral frontotemporal subdural hematoma remains. The subdural gas deep to the craniotomy bone f lap is no longer present. The transverse thickness of the subdural hematoma is approximately 0.5 cm ( measured at the level of foramen of Monro), not significantly changed. There are hyperdense components of hemorrhage (intra-axial vs extraaxial?) involving the lateral aspe ct of the left temporal lobe at the left middle cranial fossa, that has decreased in size. Likewise, left occipital hyperdense hematoma (uncertain whether intra-axial or subdural) has decreased in size. The subdural hematoma along the anterior and posterior aspects of the interhemispheric falx, has als o decreased in volume. The hyperdense subdural hematoma component along the left tentorium cerebelli is smaller and less hyperdense. Small subdural hematoma superior to the right petrous apex is also sm aller now. The left to right mild midline shift of approximately 0.9 cm is unchanged. The extrinsic compression and distortion of the bilateral lateral ventricles is unchanged, with effacement of the posterior bod y, trigone and occipital horn of the left lateral ventricle. Left temporal horn remains mildly dilate d. Small amount of intraventricular hemorrhage in the trigone and occipital horn of the right lateral ventricle has decreased. No new intracranial hemorrhage. Small old right parietal craniotomy defect is again noted. There continues to be opacification of the left middle ear cavity, left mastoid antrum, and all of th e left mastoid air cells. IMPRESSION: 1. The small, mixed age left frontotemporal subdural hematoma surrounding the outer aspect of the le ft cerebral hemisphere, has not significantly changed in volume. 2. The subdural hematomas of the interhemispheric falx and left tentorium cerebelli have decreased i n volume. 3. Focal hematomas in the left occipital region and left middle cranial fossa temporal region (uncer tain whether intra-axial or subdural) have also decreased in volume. 4. The mass effect and subfalcine herniation have not significantly changed. JN R POS: [facility]
--- NOTE | 2018-01-13 18:48 | PRG ---
DATE OF SERVICE: 01/13/2018 SUBJECTIVE: Mr. Mcclellan is 11 days in this hospitalization. There is concern that he is more drowsy a nd more plegic in the right side; however, today when I see him, he is alert, he moves his right uppe r extremity spontaneously and even goes to put his hands crossed on his abdomen. He says some words with appropriate context but is certainly not the verbose. He does not follow commands in the right lower extremity from this morning. The Head CT was repeated which demonstrates expected postoperativ e change and improvement in his midline shift compared to preoperatively. We will reinitiate Keppra just in case he had a subclinical seizure may have led to this temporary decreased level of alertness . I would be in favor of rehabilitation, medical colleagues are assisting with our medical correctio ns such as hyponatremia.
[2018-01-13] MEDS: ADMIXTURE FEE IVPB SCH (22:57)
[2018-01-13] MEDS: SODIUM CHLORIDE IVPB SCH (22:57)
[2018-01-13] MEDS: LEVETIRACETAM IVPB SCH (22:57)
[2018-01-14 04:41] LABS: Anion Gap 13 mmol/L (10-20); BUN (Urea Nitrogen) Less than 4 mg/dL (8.4-25.7); Calc. Creatinine Clearance 112 mL/min (70-130); Calcium 8.7 mg/dL (7.8-10.44); Carbon Dioxide 22 mmol/L (23-31); Chloride 100 mmol/L (98-107); Estimated GFR-MDRD Greater than 90; Glucose 121 mg/dL (83-110); Potassium 3.4 mmol/L (3.5-5.1); Sodium 132 mmol/L (136-145)
[2018-01-14 05:04] LABS: Anisocytosis SLIGHT = 6-15 cells (100X) (0-5/hpf); Band 21 % (5-11); Lymphocytes 12 % (21-51); MDiff Complete? YES; Mean Corpuscular HGB CONC 32.3 g/dL (32.0-36.0); Mean Corpuscular Hemoglobin 27.6 pg (27.0-31.0); Mean Corpuscular Volume 85.5 fL (78.0-98.0); Mean Platelet Volume 11.4 fL (7.4-10.4); Monocytes 29 % (0-10); Neutrophil 38 % (42-75); Ovalocytes SLIGHT = 2-5 cells (100X) (0-1/hpf); PLT Morphology Comment Appears Adequate; Platelet Count 170 thou/uL (130-400); RBC Distribution Width 19.7 % (11.5-14.5); Red Blood Cell (RBC) Count 3.62 mill/uL (4.70-6.10); White Blood Cell (WBC) Count 17.6 thou/uL (4.8-10.8)
[2018-01-14] MEDS: Metoprolol Tartrate 25 MG TAB PO SCH ×2 (08:10→20:27)
[2018-01-14] MEDS: LEVETIRACETAM IVPB SCH ×2 (08:10→20:27)
[2018-01-14] MEDS: ADMIXTURE FEE IVPB SCH ×2 (08:10→20:27)
[2018-01-14] MEDS: SODIUM CHLORIDE IVPB SCH ×2 (08:10→20:27)
--- NOTE | 2018-01-14 13:00 | PDOC.PN ---
- Subjective Encounter Start Date: 01/14/18 Encounter Start Time: 10:25 -: old records requested/rev Pt seen and exmained, chart reviewed in its entirety, this is my first visit with this patient Fall, large subdural hematoma. follow by NSG, consulted for medical management. urinating a lot, sodium better. Medically stable to go to rehab No F/c, no N/V/d/C, no CP or SOB all systems reviewed and neg x as above - Objective MAR Reviewed: Yes Vital Signs & Weight: Vital Signs (12 hours) Temp Pulse Resp BP BP Pulse Ox 01/14/18 12:00 97.7 F 86 20 116/55 L 97 01/14/18 08:20 97.7 F 97 20 95 01/14/18 08:09 97 127/84 01/14/18 08:00 97.7 F 110 H 20 113/53 L 95 01/14/18 04:20 97.2 F L 97 20 127/84 95 Weight Admit Weight 177 lb Weight 164 lb 9.6 oz Most Recent Monitor Data Heart Rate from ECG 82 NIBP 112/63 NIBP BP-Mean 82 Respiration from ECG 21 SpO2 92 I&O: 01/13/18 01/14/18 01/15/18 06:59 06:59 06:59 Intake Total 1210 1070 300 Output Total 800 Balance 410 1070 300 Result Diagrams: 01/14/18 03:41 01/14/18 03:41 Additional Labs: Accuchecks 01/14/18 01/14/18 01/13/18 10:51 05:54 21:25 POC Glucose 112 H 128 H 127 H 01/13/18 16:50 POC Glucose 130 H Radiology Reviewed by me: Yes EKG Reviewed by me: Yes Phys Exam - Physical Examination Constitutional: NAD HEENT: PERRLA, moist MMs, sclera anicteric, oral pharynx no lesions Neck: no nodes, no JVD, supple, full ROM Respiratory: no wheezing, no rales, no rhonchi, clear to auscultation bilateral Cardiovascular: RRR, no significant murmur, no rub Gastrointestinal: soft, non-tender, no distention, positive bowel sounds Musculoskeletal: pulses present, edema present Neurological: non-focal, normal sensation, moves all 4 limbs Lymphatic: no nodes Skin: no rash, normal turgor, cap refill <2 seconds Dx/Plan (1) Chronic anticoagulation Code(s): Z79.01 - RETIREMENT (CURRENT) USE OF ANTICOAGULANTS Status: Acute Comment: Put eliquis on hold (2) Chronic stage c diastolic heart failure Code(s): I50.32 - CHRONIC DIASTOLIC (CONGESTIVE) HEART FAILURE Status: Acute Comment: resume lasix from tomorrow.Also on IVF per primary team.Monitor fluid balance carefully. (3) Hyponatremia Code(s): E87.1 - HYPO-OSMOLALITY AND HYPONATREMIA Status: Acute (4) Leukocytosis Code(s): D72.829 - ELEVATED WHITE BLOOD CELL COUNT, UNSPECIFIED Status: Acute (5) Subdural hematoma Code(s): S06.5X9A - TRAUM SUBDR HEM W LOC OF UNSP DURATION, INIT Status: Acute Comment: s/p KCentra X1 01/02 and FFP 01/03, craniotomy 01/07 (6) Atrial fibrillation Code(s): I48.91 - UNSPECIFIED ATRIAL FIBRILLATION Status: Chronic Qualifiers: Atrial fibrillation type: unspecified Qualified Code(s): I48.91 - Unspecified atrial fibrillation (7) BPH (benign prostatic hyperplasia) Code(s): N40.0 - BENIGN PROSTATIC HYPERPLASIA WITHOUT LOWER URINRY TRACT SYMP Status: Chronic Qualifiers: Lower urinary tract symptom detail: unspecified (8) CML (chronic myelocytic leukemia) Code(s): C92.10 - CHRONIC MYELOID LEUK, BCR/ABL-POSITIVE, NOT ACHIEVE REMIS Status: Chronic (9) Pulmonary hypertension Code(s): I27.20 - PULMONARY HYPERTENSION, UNSPECIFIED Status: Chronic - Plan cont current plan of care, PT/OT, out of bed/ambulate * . ok to rehab from my standpoint
--- NOTE | 2018-01-14 17:40 | PDOC.CTH ---
Cardiology Progress Note - Subjective Appears confused. No current symptoms. - Objective Vital Signs Temp Pulse Pulse Pulse Resp BP BP 01/14/18 16:00 97.4 F L 92 20 01/14/18 14:15 101 H 101 H 119/60 01/14/18 12:00 97.7 F 86 20 01/14/18 08:20 97.7 F 97 20 01/14/18 08:09 97 127/84 01/14/18 08:00 97.7 F 110 H 20 BP BP Pulse Ox 01/14/18 16:00 127/62 98 01/14/18 14:15 113/57 L 01/14/18 12:00 116/55 L 97 01/14/18 08:20 95 01/14/18 08:09 01/14/18 08:00 113/53 L 95 Admit Weight 177 lb Weight 164 lb 9.6 oz 01/13/18 01/14/18 01/15/18 06:59 06:59 06:59 Intake Total 1210 1070 600 Output Total 800 Balance 410 1070 600 - Physical Examination General/Neuro: NAD Neck: no JVD present Lungs: CTA, unlabored respirations Heart: other: (IRR) Abdomen: no HSM, NT/ND Extremities: + femoral B - Labs Result Diagrams: 01/14/18 03:41 01/14/18 03:41 - Assessment/Plan 1. Subdural hematoma s/p craniotomy 2. Chronic AF 3. HTN 4. DM-II 5. Anemia CV stable Hold ACT till ok with neurosurgery. Consider watchman as o/p rehab INcrease CCB PO
[2018-01-15 04:12] LABS: Anion Gap 13 mmol/L (10-20); BUN (Urea Nitrogen) 4 mg/dL (8.4-25.7); Calc. Creatinine Clearance 109 mL/min (70-130); Calcium 9.1 mg/dL (7.8-10.44); Carbon Dioxide 22 mmol/L (23-31); Chloride 101 mmol/L (98-107); Estimated GFR-MDRD Greater than 90; Glucose 120 mg/dL (83-110); Magnesium 1.8 mg/dL (1.6-2.6); Sodium 133 mmol/L (136-145)
[2018-01-15 04:24] LABS: Band 11 % (5-11); Eosinophils 1 % (0-10); Hemoglobin 10.1 g/dL (14.0-18.0); Large Platelets SLIGHT; Lymphocytes 7 % (21-51); MDiff Complete? YES; Mean Corpuscular HGB CONC 32.2 g/dL (32.0-36.0); Mean Corpuscular Hemoglobin 27.7 pg (27.0-31.0); Mean Corpuscular Volume 85.8 fL (78.0-98.0); Mean Platelet Volume 11.5 fL (7.4-10.4); Monocytes 29 % (0-10); Myelocyte 1 % (0-0); Neutrophil 51 % (42-75); Platelet Count 147 thou/uL (130-400); Polychromasia SLIGHT = 2-3 cells (100X) (0-2/hpf); RBC Distribution Width 19.6 % (11.5-14.5); Red Blood Cell (RBC) Count 3.64 mill/uL (4.70-6.10); White Blood Cell (WBC) Count 21.3 thou/uL (4.8-10.8)
[2018-01-15 05:04] VITALS: BMI 20.5
--- NOTE | 2018-01-15 06:51 | PDOC.CTH ---
Cardiology Progress Note - Subjective Somnolent. No complaints - Objective Vital Signs Temp Pulse Resp BP Pulse Ox 01/15/18 03:15 96.5 F L 86 20 116/61 98 01/14/18 23:45 96.5 F L 91 20 114/59 L 97 01/14/18 20:50 96.6 F L 95 20 119/59 L 97 01/14/18 20:29 96.5 F L 91 20 Admit Weight 177 lb Weight 160 lb 6.4 oz 01/13/18 01/14/18 01/15/18 06:59 06:59 06:59 Intake Total 1210 1070 900 Output Total 800 Balance 410 1070 900 - Physical Examination General/Neuro: NAD Neck: carotid US brisk, no JVD present Lungs: CTA, unlabored respirations Heart: other: (IRR) Abdomen: no HSM, NT/ND, soft Extremities: + edema B - Labs Result Diagrams: 01/15/18 03:39 01/15/18 03:39 - Assessment/Plan 1. Subdural hematoma s/p craniotomy 2. Chronic AF 3. HTN 4. DM-II 5. Anemia HR improved Continue with PO CCB rehab Hold ACT till ok with Neuro vs watchman
[2018-01-15] MEDS: Metoprolol Tartrate 25 MG TAB PO SCH (08:40)
[2018-01-15] MEDS ORDERED: levETIRAcetam 500 mg/5 ml Oral Solution PO SCH (09:00)
--- NOTE | 2018-01-15 11:19 | PDOC.PN ---
- Subjective Encounter Start Date: 01/15/18 Encounter Start Time: 10:00 Pt walking some this AM, no acute events, being discharged by NSG to rehab. No N/V/D/C, no new complaints all systems reviewed and neg x as above - Objective MAR Reviewed: Yes Vital Signs & Weight: Vital Signs (12 hours) Temp Pulse Resp BP Pulse Ox 01/15/18 07:51 97.4 F L 92 18 110/58 L 93 L 01/15/18 03:15 96.5 F L 86 20 116/61 98 01/14/18 23:45 96.5 F L 91 20 114/59 L 97 Weight Admit Weight 177 lb Weight 160 lb 6.4 oz Most Recent Monitor Data Heart Rate from ECG 82 NIBP 112/63 NIBP BP-Mean 82 Respiration from ECG 21 SpO2 92 I&O: 01/14/18 01/15/18 01/16/18 06:59 06:59 06:59 Intake Total 1070 900 Balance 1070 900 Result Diagrams: 01/15/18 03:39 01/15/18 03:39 Additional Labs: Accuchecks 01/15/18 01/15/18 01/14/18 10:30 05:46 22:17 POC Glucose 124 H 120 H 158 H 01/14/18 17:04 POC Glucose 139 H Phys Exam - Physical Examination Constitutional: NAD HEENT: PERRLA, moist MMs, sclera anicteric, oral pharynx no lesions Neck: no nodes, no JVD, supple, full ROM Respiratory: no wheezing, no rales, no rhonchi, clear to auscultation bilateral Cardiovascular: RRR, no significant murmur, no rub Gastrointestinal: soft, non-tender, no distention, positive bowel sounds Musculoskeletal: pulses present, edema present Neurological: non-focal, moves all 4 limbs Lymphatic: no nodes Deviation from normal: flat affect, O to person Skin: no rash, normal turgor, cap refill <2 seconds Dx/Plan (1) Chronic anticoagulation Code(s): Z79.01 - CORE SUCKER (CURRENT) USE OF ANTICOAGULANTS Status: Acute Comment: Put eliquis on hold (2) Chronic stage c diastolic heart failure Code(s): I50.32 - CHRONIC DIASTOLIC (CONGESTIVE) HEART FAILURE Status: Acute Comment: resume lasix from tomorrow.Also on IVF per primary team.Monitor fluid balance carefully. (3) Hyponatremia Code(s): E87.1 - HYPO-OSMOLALITY AND HYPONATREMIA Status: Acute (4) Leukocytosis Code(s): D72.829 - ELEVATED WHITE BLOOD CELL COUNT, UNSPECIFIED Status: Acute (5) Subdural hematoma Code(s): S06.5X9A - TRAUM SUBDR HEM W LOC OF UNSP DURATION, INIT Status: Acute Comment: s/p KCentra X1 01/02 and FFP 01/03, craniotomy 01/07 (6) Atrial fibrillation Code(s): I48.91 - UNSPECIFIED ATRIAL FIBRILLATION Status: Chronic Qualifiers: Atrial fibrillation type: unspecified Qualified Code(s): I48.91 - Unspecified atrial fibrillation (7) BPH (benign prostatic hyperplasia) Code(s): N40.0 - BENIGN PROSTATIC HYPERPLASIA WITHOUT LOWER URINRY TRACT SYMP Status: Chronic Qualifiers: Lower urinary tract symptom detail: unspecified (8) CML (chronic myelocytic leukemia) Code(s): C92.10 - CHRONIC MYELOID LEUK, BCR/ABL-POSITIVE, NOT ACHIEVE REMIS Status: Chronic (9) Pulmonary hypertension Code(s): I27.20 - PULMONARY HYPERTENSION, UNSPECIFIED Status: Chronic - Plan cont current plan of care, PT/OT * . D/C to rehab. replace K+
[2018-01-15 11:46] VITALS: TEMP 97.7
--- NOTE | 2018-01-15 12:46 | PRG ---
DATE OF SERVICE: 01/15/2018 Mr. Mcclellan is continuing to make strides. He is ambulating with the assistance of 2 therapists today, but the fact that his walking is absolutely wonderful. I am very pleased with how he is doing. We will continue to watch him and I appreciate the excellent care of our medical colleagues.
[2018-01-15] MEDS: Potassium Chloride 20 MEQ TAB PO SCH ×2 (15:12→18:48)
[2018-01-15 15:58] VITALS: BP 115/61
== END 2018-01-15 20:16 | disposition swing bed (61) | DRG 25 ==
LOC: ERS 11:48 → CCU 14:34 → 2SE 01-06 17:57 → SURG A 01-07 12:03 → CCU 01-07 14:34 → 2SE 01-12 11:51
PROVIDERS: ADMIT Surgery; ATTEND Surgery
PROC: 30233K1 Transfusion of Nonautologous Frozen Plasma into Peripheral Vein, Percutaneous Approach (ICD-10-PCS; 2018-01-03)
PROC: 00C40ZZ Extirpation of Matter from Intracranial Subdural Space, Open Approach (ICD-10-PCS; principal; 2018-01-07)
PROC: 5A1945Z Respiratory Ventilation, 24-96 Consecutive Hours (ICD-10-PCS; 2018-01-07)
DX: S06.5X0A Traumatic subdural hemorrhage without loss of consciousness, initial encounter (principal); G93.6 Cerebral edema; J96.90 Respiratory failure, unspecified, unspecified whether with hypoxia or hypercapnia; G93.40 Encephalopathy, unspecified; E87.1 Hypo-osmolality and hyponatremia; C91.10 Chronic lymphocytic leukemia of B-cell type not having achieved remission; I50.32 Chronic diastolic (congestive) heart failure; F03.90 Unspecified dementia, unspecified severity, without behavioral disturbance, psychotic disturbance, mood disturbance, and anxiety; I11.0 Hypertensive heart disease with heart failure; I48.2 Chronic atrial fibrillation; E11.42 Type 2 diabetes mellitus with diabetic polyneuropathy; N40.0 Benign prostatic hyperplasia without lower urinary tract symptoms; I27.20 Pulmonary hypertension, unspecified; D64.9 Anemia, unspecified; K21.9 Gastro-esophageal reflux disease without esophagitis; E87.6 Hypokalemia; Z79.01 Long term (current) use of anticoagulants; Z79.82 Long term (current) use of aspirin; Z79.899 Other long term (current) drug therapy; W01.0XXA Fall on same level from slipping, tripping and stumbling without subsequent striking against object, initial encounter; Y92.481 Parking lot as the place of occurrence of the external cause
CPT/HCPCS: 36415; 36416; 36430; 70450; 71045; 72125; 80048; 82570; 82805; 83735; 83935; 84300; 85007; 85014; 85018; 85027; 85610; 85730; 86850; 86900; 86901; 87040; 87077; 87086; 87186; 93970; 94002; 94003; 96374; A4216; C1713; C9132; G0390; G8978-GP-CM; G8978-GP-CN; G8979-GP-CJ; G8987-GO-CN; G8988-GO-CM; J0131; J0690; J1953; J2001; J2704; J3010; J3370; J3430; J3480; J3490; J7050; P9059

== ENCOUNTER 2018-01-18 15:17 | Inpatient (IN) | payer MEDICARE ==
[~2018-01-18 15:17] MED LIST: ISOVUE-370 76%-LOCM 1 ML ONE
--- NOTE | 2018-01-18 16:45 | CT ---
CT ANGIOGRAM THORAX 01/18/18 HISTORY: Chest pain and hypotension. Altered mental status. COMPARISON: 12/04/17 FINDINGS: No filling defects are seen in the pulmonary arteries to suggest a pulmonary embolus. Vascular calcifications are seen in the coronary arteries and thoracic aorta. The thoracic aorta is n ormal in caliber without evidence of an aortic dissection. The heart is enlarged. Very tiny pericardial effusion is present. There are enlarged mediastinal lymph nodes as well as increased number of mediastinal lymph nodes whi ch were present on prior study. The largest right paratracheal lymph node measures 1.4 cm in short ax is dimension. This was present on the prior exam as well. There are tiny bilateral pleural effusions. There are also bibasilar areas of consolidation probably related to atelectasis, although pneumonia cannot be entirely excluded. There is respiratory motion o n the provided images which does result in dependent atelectasis as well. There are two stable pleural based pulmonary nodules within the lateral aspect of the right upper lob e, largest measuring approximately 5 mm which are stable from the prior exam. No additional pulmonary nodule or mass is seen. There is severe bilateral glenohumeral osteoarthropathy and on the energy attorney image there does appear to b e narrowing of each subacromial space with high riding of the humeral head suggesting chronic rotator cuff tear. Intra-articular loose bodies are also seen bilaterally. On prior exam there is suggestion of nodule within the region of the thyroid isthmus. However, this a kathia is not well seen on today's examination due to spray artifact from dense contrast in the left inn ominate vein, although the nodule does persist. Previously measured 1.8 cm. There are two adrenal nodules involving the right adrenal gland. One involving the lateral limb as we ll as an additional nodule involving the medial limb of the right adrenal gland. These nodules cannot be further characterized on this examination. Nodule involving the lateral limb of the right adrenal gland measures 1.4 cm and the nodule seen which is adjacent to the medial limb of the left adrenal g land and is thought to arise from the adrenal gland measures approximately 1.8 cm. These nodules were present on the prior study although incompletely imaged on that exam. The spleen is enlarged in AP dimensions measuring 17.1 cm. Post cholecystectomy changes are seen. IMPRESSION: 1. Mediastinal lymphadenopathy similar to the prior exam. 2. Tiny bilateral pleural effusions and the pleural effusions have diminished when compared to t he prior study. Bibasilar areas of consolidation are seen which may be attributable to bibasilar atel ectasis; although, pneumonia at either lung base cannot be entirely excluded. 3. Cardiomegaly. 4. No CT evidence of a pulmonary embolus. 5. Two separate right adrenal nodules which cannot be further characterized on this exam. A none mergent CT abdomen following adrenal mass protocol is suggested. 6. Splenomegaly. 7. Post cholecystectomy changes. 8. Severe bilateral glenohumeral osteoarthropathy with intra-articular loose bodies involving ea ch glenohumeral joint. 9. Suggestion of a thyroid nodule which is not well imaged on this examination. There was questi on of a nodule in this region on the prior CT exam. Thyroid ultrasound would be better study for eval uation of thyroid gland. POS: BILLY
[2018-01-18] MEDS ORDERED: Norepinephrine 8 MG/0.9% NS 250 ML ONE (16:52)
[2018-01-18 17:01] LABS: Hemoglobin 9.5 g/dL (14.0-18.0); Mean Corpuscular HGB CONC 31.6 g/dL (32.0-36.0); Mean Corpuscular Hemoglobin 27.4 pg (27.0-31.0); Mean Corpuscular Volume 86.9 fL (78.0-98.0); Platelet Count 123 thou/uL (130-400); RBC Distribution Width 20.2 % (11.5-14.5); Red Blood Cell (RBC) Count 3.46 mill/uL (4.70-6.10); White Blood Cell (WBC) Count 28.4 thou/uL (4.8-10.8)
[2018-01-18 17:13] LABS: CKMB 0.9 ng/mL (0-6.6); Troponin I Less than 0.010 ng/mL (< 0.028)
[2018-01-18 17:19] LABS: Anisocytosis MODERATE=16-30 cells (100X) (0-5/hpf); Band 13 % (5-11); Large Platelets SLIGHT; Lymphocytes 1 % (21-51); MDiff Complete? YES; Metamyelocyte 1 % (0-0); Monocytes 30 % (0-10); Myelocyte 3 % (0-0); Neutrophil 50 % (42-75); Ovalocytes SLIGHT = 2-5 cells (100X) (0-1/hpf); PLT Morphology Comment Appears Decreased; Poikilocytosis SLIGHT = 6-15 cells (100X) (0-5/hpf); Polychromasia MODERATE = 3-4 cells (100X) (0-2/hpf); Reactive Lymphocytes 1 % (0-10); Schistocytes SLIGHT = 2-5 cells (100X) (0-1/hpf); Tear Drops SLIGHT = 2-5 cells (100X) (0-1/hpf)
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
[2018-01-18] MEDS ORDERED: Acetaminophen 325 MG TAB PO PRN (21:02)
[2018-01-18 21:07] VITALS: BMI 26.6
[2018-01-18] MEDS ORDERED: Piperacillin/Tazobactam 3.375 GM in Sodium Chloride 0.9% 100 ML IVPB SCH (21:15)
[2018-01-18] MEDS ORDERED: Metoprolol Tartrate 25 MG TAB PO SCH (21:30)
[2018-01-18] MEDS ORDERED: levETIRAcetam 500 mg/5 ml Oral Solution PO SCH (21:30)
[2018-01-18] MEDS: Sodium Chloride 0.9% 1,000 ML IV SCH (21:50)
[2018-01-19] MEDS: Vancomycin HCl 750 MG in Sodium Chloride 0.9% 250 ML 250 ML IVPB SCH ×2 (01:45→12:35)
[2018-01-19] MEDS: Piperacillin/Tazobactam 3.375 GM in Sodium Chloride 0.9% 100 ML IVPB SCH ×4 (03:38→21:53)
[2018-01-19] MEDS: Sodium Chloride 0.9% 1,000 ML IV SCH ×3 (03:43→21:54)
[2018-01-19 04:16] LABS: INR-International Normal Ratio 1.7; PTT 52.3 SEC (22.9-36.1); Prothrombin Time 19.6 SEC (12.0-14.7)
[2018-01-19 04:36] LABS: Anion Gap 9 mmol/L (10-20); BUN (Urea Nitrogen) 8 mg/dL (8.4-25.7); Calc. Creatinine Clearance 87 mL/min (70-130); Calcium 8.5 mg/dL (7.8-10.44); Carbon Dioxide 23 mmol/L (23-31); Chloride 105 mmol/L (98-107); Estimated GFR-MDRD Greater than 90; Glucose 125 mg/dL (83-110); Sodium 134 mmol/L (136-145)
[2018-01-19 04:41] LABS: Potassium 2.9 mmol/L (3.5-5.1)
[2018-01-19 04:48] LABS: Band 19 % (5-11); Eosinophils 2 % (0-10); Hemoglobin 8.8 g/dL (14.0-18.0); Lymphocytes 5 % (21-51); MDiff Complete? YES; Mean Corpuscular HGB CONC 31.2 g/dL (32.0-36.0); Mean Corpuscular Hemoglobin 26.9 pg (27.0-31.0); Mean Corpuscular Volume 86.3 fL (78.0-98.0); Mean Platelet Volume 10.8 fL (7.4-10.4); Metamyelocyte 1 % (0-0); Monocytes 34 % (0-10); Neutrophil 39 % (42-75); PLT Morphology Comment Appears Adequate; Platelet Count 136 thou/uL (130-400); RBC Distribution Width 19.9 % (11.5-14.5); RBC Morphology Normal; Red Blood Cell (RBC) Count 3.27 mill/uL (4.70-6.10); White Blood Cell (WBC) Count 39.9 thou/uL (4.8-10.8)
[2018-01-19] MEDS ORDERED: Magnesium Sulfate 2 GM in Sodium Chloride 0.9% 100 ML IVPB SCH (05:30)
[2018-01-19] MEDS ORDERED: Potassium Chloride 40 MEQ in Sodium Chloride 0.9% 250 ML 250 ML IVPB SCH (06:30)
[2018-01-19] MEDS ORDERED: CCU Electrolyte Replacement 1 EACH FS ONE (08:31)
[2018-01-19] MEDS ORDERED: Potassium Phosphate 9 MMOL in Sodium Chloride 0.9% 100 ML IVPB PRN (08:34)
[2018-01-19] MEDS ORDERED: Potassium Chloride 40 MEQ in Premix Bag 1 BAG IVPB PRN (08:34)
[2018-01-19] MEDS ORDERED: Potassium Chloride 40 MEQ in Sodium Chloride 0.9% 250 ML 250 ML IVPB PRN (08:34)
[2018-01-19] MEDS ORDERED: Potassium Phosphate 15 MMOL in Sodium Chloride 0.9% 250 ML 250 ML IV PRN (08:34)
[2018-01-19] MEDS ORDERED: Magnesium 2 GM/NS 0.9% 100 ML 2 GM in Premix Bag 1 BAG IVPB PRN (08:34)
[2018-01-19] MEDS ORDERED: Magnesium Oxide 400 MG TAB PO PRN ×2 (08:34)
[2018-01-19] MEDS ORDERED: Potassium Phosphate 12 MMOL in Sodium Chloride 0.9% 250 ML 250 ML IV PRN (08:34)
[2018-01-19] MEDS ORDERED: CCU ELECTROLYTE REPLACEMENT PROTOCOL FS PRN (08:34)
[2018-01-19] MEDS: Metoprolol Tartrate 25 MG TAB PO SCH ×2 (09:00→21:54)
[2018-01-19] MEDS: levETIRAcetam 500 mg/5 ml Oral Solution PO SCH ×2 (09:25→21:53)
[2018-01-19] MEDS: Famotidine 20 MG TAB PO SCH ×2 (09:57→21:53)
--- NOTE | 2018-01-19 10:05 | PDOC.PN ---
- Subjective Encounter Start Date: 01/19/18 Encounter Start Time: 10:03 Mr. Mcclellan was seen today in follow-up of altered mental status, hypotension and elevated WBC count. Mr. Mcclellan is awake and alert. He is able to answer some simple questions and his speech is clear. He denies any headache, or pain anywhere else. - Objective Resuscitation Status: Resuscitation Status FULL:Full Resuscitation MAR Reviewed: Yes Vital Signs & Weight: Vital Signs (12 hours) Temp 01/19/18 08:00 98.6 F 01/19/18 04:00 98.9 F 01/19/18 00:00 97.4 F L Weight Admit Weight 141 lb 1.533 oz Weight 141 lb 1.533 oz Most Recent Monitor Data Heart Rate from ECG 124 NIBP 99/58 NIBP BP-Mean 67 Respiration from ECG 27 SpO2 97 I&O: 01/18/18 01/19/18 01/20/18 06:59 06:59 06:59 Intake Total 1385 500 Output Total 970 140 Balance 415 360 Result Diagrams: 01/19/18 03:50 01/19/18 03:50 Phys Exam - Physical Examination HEENT: PERRLA, sclera anicteric + bruising on the left side of his face Respiratory: no wheezing, no rales, no rhonchi Cardiovascular: no significant murmur, no rub, irregular heart rate is rapid Gastrointestinal: soft, non-tender, no distention Musculoskeletal: no edema + right sided weakness Dx/Plan (1) Hypotension Status: Acute (2) Leukocytosis Code(s): D72.829 - ELEVATED WHITE BLOOD CELL COUNT, UNSPECIFIED Status: Acute (3) Paroxysmal atrial fibrillation Code(s): I48.0 - PAROXYSMAL ATRIAL FIBRILLATION Status: Chronic Comment: Resume BB and CCB with parameters for BP (4) Subdural hematoma, post-traumatic Code(s): S06.5X9A - TRAUM SUBDR HEM W LOC OF UNSP DURATION, INIT Status: Chronic (5) Hypokalemia Code(s): E87.6 - HYPOKALEMIA Status: Acute (6) Hypertension Code(s): I10 - ESSENTIAL (PRIMARY) HYPERTENSION Status: Acute - Plan * Patient admitted with altered mental status, hypotension and leukocytosis- not known if this represents sepsis, or mild dehydration, and elevated WBC cont due to CML, and or hypotension from adrenal insufficiency- Will continue IV Antibiotics, and follow-up with cultures- and await ID opinion * Continue IV hydration. * Oncology consult pending * Serum cortisol level has been ordered * Correct Hypokalemia and Hypomagnesemia * AFIB- his heart rate is elevated- likely from Levophed * Recent Subdural Hematoma- he is neurologically stable- continue PT/OT
[2018-01-19] MEDS ORDERED: Norepinephrine 8 MG/0.9% NS 250 ML IVPB SCH (10:15)
[2018-01-19 13:21] LABS: Potassium 3.5 mmol/L (3.5-5.1)
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
--- NOTE | 2018-01-19 16:36 | CON ---
DATE OF ADMISSION: 01/18/2018 DATE OF CONSULTATION: 01/19/2018 REASON FOR CONSULTATION: Leukocytosis. HISTORY OF PRESENT ILLNESS: The patient is an 82-year-old man who suffered a traumatic subdural romel michael requiring neurosurgical intervention with craniotomy within the past month. Neurological deteri oration improved and he was subsequently discharged to a rehabilitation setting in [place]. Althoug h, he had been improving, on the day of admission, he was noted to be somewhat weaker with worsening aphasia. A CBC was done, which was abnormal. He was then admitted to the Intensive Care Unit here f or observation and further evaluation. Laboratory studies on admission showed a white blood cell cou nt of 28.4 with 50% neutrophils, 13% bands, 1 lymphocyte, 1 reactive lymphocyte, 30% monocytes, 1 bas ophil, 1 metamyelocyte, and 3 myelocytes. The hemoglobin was 9.5 and platelet count 123,000. A basi c met was normal except for a potassium of 2.9. Of significance, the patient has a history of chroni c myelomonocytic leukemia treated by Dr. Aranda in our office. He has been maintained on Vidaza si nce approximately 2013 with control of white blood cell count and no evidence of progression to a mor e aggressive hematologic disorder. His last treatment was approximately 2 months ago, however. I am asked to see the patient to provide further management recommendations in this setting. He has no h istory of fever or symptoms to suggest infection. ALLERGIES: None. MEDICATIONS: Diltiazem, Pepcid, Keppra, metoprolol, and piperacillin/tazobactam. PAST MEDICAL HISTORY: There is a history of intermittent atrial fibrillation, diabetes mellitus, hyp ertension, coronary artery disease, and left lower extremity DVT associated with pulmonary embolism i n 1997. He has a history of cholelithiasis for which he underwent sphincterectomy and stone removal in 07/2016. He is status post radiation therapy to a renal mass, details unavailable at this time. PAST SURGICAL HISTORY: He has undergone cholecystectomy, shoulder surgery, and craniotomy for subdur al hematoma. He is status post appendectomy in the remote past. FAMILY HISTORY: The patient's mother had breast cancer and colon cancer. A sister also had breast c ancer. PERSONAL HISTORY: The patient is . He has 9 children. He has lived in a supervised setting most recently. He is a social drinker and does not use tobacco. 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 REVIEW OF SYSTEMS: He denies significant cardiopulmonary, GI, , musculoskeletal, or neurological c omplaints. PHYSICAL EXAMINATION: VITAL SIGNS: Temperature 98.8, pulse 105, respiratory rate 26, and blood pressure 100/59. GENERAL: The patient is alert and oriented. He responds slowly, but reasonably appropriately to sim ple questions. He has ecchymosis throughout the lower periorbital area. HEENT: The extraocular movements are intact. Pupils equal, round, and reactive to light. NECK: Supple. LUNGS: Clear. CARDIOVASCULAR: Regular rate and rhythm without murmur, rub, gallop or click. ABDOMEN: No tenderness, organomegaly, masses, bruits or ascites. EXTREMITIES: No clubbing, cyanosis or edema. SKIN: Normal. LYMPH: No adenopathy. MUSCULOSKELETAL: No active arthritis. NEUROLOGIC: He is slightly weak on the right, but does use all extremities appropriately with no obv ious focal finding. LABORATORY DATA: See history of present illness. IMAGING: A chest CT angiogram shows stable mediastinal adenopathy and tiny bilateral pleural effusio n. There is cardiomegaly. There is no evidence of pulmonary embolus. There is evidence of splenome adelfo. Significant glenohumeral arthritis was noted. IMPRESSION: 1. Traumatic subdural hematoma with some recent but minimal neurological decline. 2. Leukocytosis with marked left shift and associated monocytosis consistent with known history of c hronic myelomonocytic leukemia. I suspect the findings are a consequence of the fact he has been unt reated now for 2 months. RECOMMENDATIONS: I would observe him for now without specific neurological or hematological interven tion. He will return to the office when stable to resume Vidaza chemotherapy. Thanks very much for allowing me to provide my recommendations.
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
[2018-01-20 01:04] LABS: Vancomycin, Trough 8.9 ug/mL
[2018-01-20] MEDS: Vancomycin HCl 750 MG in Sodium Chloride 0.9% 250 ML 250 ML IVPB SCH (01:43)
[2018-01-20] MEDS ORDERED: Diltiazem HCl 125 MG, Admixture Fee 1 EACH in Sodium Chloride 0.9% 100 ML IVPB SCH (02:15)
[2018-01-20] MEDS: Piperacillin/Tazobactam 3.375 GM in Sodium Chloride 0.9% 100 ML IVPB SCH ×4 (02:40→21:02)
[2018-01-20] MEDS: Vancomycin HCl 1.25 GM in Sodium Chloride 0.9% 250 ML 250 ML IVPB SCH ×2 (02:40→14:25)
[2018-01-20 05:19] LABS: Anion Gap 11 mmol/L (10-20); BUN (Urea Nitrogen) 8 mg/dL (8.4-25.7); Calc. Creatinine Clearance 87 mL/min (70-130); Calcium 8.3 mg/dL (7.8-10.44); Carbon Dioxide 20 mmol/L (23-31); Chloride 106 mmol/L (98-107); Estimated GFR-MDRD Greater than 90; Glucose 139 mg/dL (83-110); Magnesium 1.9 mg/dL (1.6-2.6); Sodium 134 mmol/L (136-145)
[2018-01-20 05:36] LABS: Band 23 % (5-11); Elliptocytes SLIGHT = 2-5 cells (100X) (0-1/hpf); Eosinophils 1 % (0-10); Hemoglobin 9.1 g/dL (14.0-18.0); Lymphocytes 2 % (21-51); MDiff Complete? YES; Mean Corpuscular Hemoglobin 26.7 pg (27.0-31.0); Mean Corpuscular Volume 86.2 fL (78.0-98.0); Mean Platelet Volume 10.9 fL (7.4-10.4); Metamyelocyte 3 % (0-0); Monocytes 45 % (0-10); Neutrophil 26 % (42-75); PLT Morphology Comment Appears Decreased; Platelet Count 121 thou/uL (130-400); RBC Distribution Width 19.9 % (11.5-14.5); Red Blood Cell (RBC) Count 3.41 mill/uL (4.70-6.10); White Blood Cell (WBC) Count 31.2 thou/uL (4.8-10.8)
[2018-01-20] MEDS: Sodium Chloride 0.9% 1,000 ML IV SCH ×3 (07:04→21:06)
[2018-01-20] MEDS: Famotidine 20 MG TAB PO SCH ×2 (08:03→21:02)
[2018-01-20] MEDS: levETIRAcetam 500 mg/5 ml Oral Solution PO SCH ×2 (08:04→21:02)
[2018-01-20] MEDS: Metoprolol Tartrate 25 MG TAB PO SCH ×2 (08:04→21:07)
[2018-01-20] MEDS ORDERED: Furosemide 40 MG/4 ML VIAL SLOW IVP SCH (08:30)
[2018-01-20] MEDS ORDERED: Sterile Water 10 ML ONE (08:48)
[2018-01-20] MEDS ORDERED: Prevnar 13-Val Conj/PF 0.5 ML SYRINGE IM ONE (09:00)
[2018-01-20] MEDS ORDERED: Ziprasidone 20 MG VIAL IM SCH (09:00)
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
[2018-01-20] MEDS ORDERED: Ziprasidone 20 MG VIAL IM PRN (14:26)
--- NOTE | 2018-01-20 15:13 | PDOC.PN ---
- Subjective Encounter Start Date: 01/20/18 Encounter Start Time: 14:05 Subjective: sleeping, cannot wake him up - Objective Resuscitation Status: Resuscitation Status FULL:Full Resuscitation MAR Reviewed: Yes Vital Signs & Weight: Vital Signs (12 hours) Temp 01/20/18 12:00 98.0 F 01/20/18 08:00 99.2 F 01/20/18 04:00 97.8 F Weight Admit Weight 141 lb 1.533 oz Weight 141 lb 1.533 oz Most Recent Monitor Data Heart Rate from ECG 98 NIBP 119/61 NIBP BP-Mean 92 Respiration from ECG 26 SpO2 99 I&O: 01/19/18 01/20/18 01/21/18 06:59 06:59 06:59 Intake Total 1385 4576 630 Output Total 970 4704 2725 Balance 415 0148 -8019 Result Diagrams: 01/20/18 04:34 01/20/18 04:34 Additional Labs: Accuchecks 01/19/18 21:56 POC Glucose 143 H Phys Exam - Physical Examination HEENT: PERRLA, moist MMs, sclera anicteric, TM's clear, oral pharynx no lesions , 2+ tonsils amirah on the scalp from previous hematoma evacuation Neck: no nodes, no JVD, supple, full ROM Respiratory: no wheezing, no rales, no rhonchi, wheezing present, clear to auscultation bilateral Cardiovascular: RRR, no significant murmur, no rub, gallop, irregular Gastrointestinal: soft, non-tender, no distention, positive bowel sounds sleeping, cannot examine Skin: no rash, normal turgor, cap refill <2 seconds Dx/Plan (1) Hypertension Code(s): I10 - ESSENTIAL (PRIMARY) HYPERTENSION Status: Acute (2) Hypotension Status: Acute (3) Hypokalemia Code(s): E87.6 - HYPOKALEMIA Status: Acute (4) Leukocytosis Code(s): D72.829 - ELEVATED WHITE BLOOD CELL COUNT, UNSPECIFIED Status: Acute (5) Subdural hematoma Code(s): S06.5X9A - TRAUM SUBDR HEM W LOC OF UNSP DURATION, INIT Status: Acute Comment: s/p KCentra X1 01/02 and FFP 01/03, craniotomy 01/07 (6) Atrial fibrillation Code(s): I48.91 - UNSPECIFIED ATRIAL FIBRILLATION Status: Chronic Qualifiers: Atrial fibrillation type: unspecified Qualified Code(s): I48.91 - Unspecified atrial fibrillation (7) CML (chronic myelocytic leukemia) Code(s): C92.10 - CHRONIC MYELOID LEUK, BCR/ABL-POSITIVE, NOT ACHIEVE REMIS Status: Chronic (8) Paroxysmal atrial fibrillation Code(s): I48.0 - PAROXYSMAL ATRIAL FIBRILLATION Status: Chronic Comment: Resume BB and CCB with parameters for BP - Plan cont current plan of care, huffman catheter, continue antibiotics, PT/OT * Patient admitted with altered mental status, hypotension and leukocytosis- not known if this represents sepsis, or mild dehydration, or due to CML, and or hypotension from adrenal insufficiency- Will continue IV Antibiotics, and follow-up with cultures- Continue Vanc and Cefepime for now. No cx results are available for now * Continue IV hydration. * Oncology consult pending * Serum cortisol level has been ordered * Correct Hypokalemia and Hypomagnesemia * AFIB- rate controlled * Hypotension: Resolved. Levophed on hold for now * Recent Subdural Hematoma- he is neurologically stable- continue PT/OT * .
[2018-01-21] MEDS: Vancomycin HCl 1.25 GM in Sodium Chloride 0.9% 250 ML 250 ML IVPB SCH ×2 (01:50→13:45)
[2018-01-21] MEDS: Piperacillin/Tazobactam 3.375 GM in Sodium Chloride 0.9% 100 ML IVPB SCH ×3 (03:50→15:06)
[2018-01-21] MEDS ORDERED: D5 1/2 NS w/20 mEq KCL 1,000 ML IV SCH ×2 (07:15→21:54)
--- NOTE | 2018-01-21 07:43 | PRG ---
DATE OF SERVICE: 01/21/2018 SUBJECTIVE: The patient has continued to have spells of agitation, requiring sedation with Geodon. PHYSICAL EXAMINATION: VITAL SIGNS: Today, his temperature is 99.0, pulse of 78, blood pressure 81/48. A 24-hour intake 32 25, output 4385. HEENT: Unremarkable. NECK: No JVD. LUNGS: Clear anteriorly. CARDIOVASCULAR: S1 and S2 regular. ABDOMEN: Soft. EXTREMITIES: No edema. LABORATORY DATA: White blood cell count 31.2, hematocrit 29.4, platelet count 121. Sodium 134, pota ssium 3, chloride 106, CO2 20, BUN 8, creatinine 0.5, glucose 139. ASSESSMENT: 1. Sepsis syndrome. 2. Chronic myelogenous leukemia. 3. Atrial fibrillation with rapid ventricular response. 4. Encephalopathy. 5. Recent intracranial hemorrhage. PLAN: 1. Continue Geodon as needed. 2. The patient currently off Cardizem and Levophed, may need a little more fluid given profound diur esis yesterday. 3. Continue antibiotics.
[2018-01-21] MEDS: D5 1/2 NS w/20 mEq KCL 1,000 ML IV SCH ×2 (08:25→18:49)
[2018-01-21 08:27] LABS: Anion Gap 8 mmol/L (10-20); BUN (Urea Nitrogen) 8 mg/dL (8.4-25.7); Calc. Creatinine Clearance 86 mL/min (70-130); Calcium 8.1 mg/dL (7.8-10.44); Carbon Dioxide 24 mmol/L (23-31); Chloride 108 mmol/L (98-107); Estimated GFR-MDRD Greater than 90; Glucose 116 mg/dL (83-110); Sodium 137 mmol/L (136-145)
--- NOTE | 2018-01-21 08:28 | PDOC.PN ---
- Subjective Encounter Start Date: 01/21/18 (f/u sepsis) Encounter Start Time: 08:26 Subjective: Pt received geodon last night for agitation - sleeping this morning -: attempts to open eyes to command. Also huffman replaced and -: blood clot in the tube - reason it would not irrigate - Objective Resuscitation Status: Resuscitation Status FULL:Full Resuscitation Vital Signs & Weight: Vital Signs (12 hours) Temp 01/21/18 04:00 99.0 F 01/21/18 00:00 98.7 F Weight Admit Weight 141 lb 1.533 oz Weight 141 lb 1.533 oz Most Recent Monitor Data Heart Rate from ECG 88 NIBP 81/48 NIBP BP-Mean 61 Respiration from ECG 19 SpO2 99 I&O: 01/20/18 01/21/18 01/22/18 06:59 06:59 06:59 Intake Total 4576 3225 Output Total 1640 4385 Balance 2936 -1160 Result Diagrams: 01/21/18 07:55 01/21/18 19:54 EKG Reviewed by me: Yes (a fib now 90's, was tachy overnight) Phys Exam - Physical Examination Constitutional: NAD Respiratory: no wheezing, no rales, no rhonchi Cardiovascular: no significant murmur, irregular Gastrointestinal: soft, non-tender, no distention, positive bowel sounds Musculoskeletal: pulses present 2+ dp pulses some pitting edema in LE unable to assess Deviation from normal: unable to assess Skin: no rash Dx/Plan (1) Sepsis Code(s): A41.9 - SEPSIS, UNSPECIFIED ORGANISM Status: Acute (2) Hypotension Status: Acute (3) Pneumonia Code(s): J18.9 - PNEUMONIA, UNSPECIFIED ORGANISM Status: Acute (4) Subdural hematoma Code(s): S06.5X9A - TRAUM SUBDR HEM W LOC OF UNSP DURATION, INIT Status: Acute (5) Atrial fibrillation Code(s): I48.91 - UNSPECIFIED ATRIAL FIBRILLATION Status: Chronic Qualifiers: Atrial fibrillation type: unspecified Qualified Code(s): I48.91 - Unspecified atrial fibrillation (6) Diabetes type 2, controlled Code(s): E11.9 - TYPE 2 DIABETES MELLITUS WITHOUT COMPLICATIONS Status: Chronic Qualifiers: Diabetes mellitus usp insulin use: unspecified rn long term care insulin use status (7) GERD (gastroesophageal reflux disease) Code(s): K21.9 - GASTRO-ESOPHAGEAL REFLUX DISEASE WITHOUT ESOPHAGITIS Status: Chronic Qualifiers: Esophagitis presence: esophagitis presence not specified Qualified Code(s) : K21.9 - Gastro-esophageal reflux disease without esophagitis (8) Pulmonary hypertension Code(s): I27.20 - PULMONARY HYPERTENSION, UNSPECIFIED Status: Chronic - Plan * Hypotensive - increase rate of IVF * Awaiting labs for today * Mental status likely secondary to geodon - monitor * Hold cardizem and metoprolol due to bp, may need digoxin if rate is uncontrolled * continuing abx - cultures are negative at 48 hours * Appreciate ID and Oncology consults * * dvt prophy - scd's * gi prophy - famotidine * code status full * * will place palliative care consult as overall prognosis is guarded.
[2018-01-21] MEDS: Famotidine 20 MG TAB PO SCH ×2 (08:30→22:00)
[2018-01-21 08:36] LABS: Potassium 2.7 mmol/L (3.5-5.1)
[2018-01-21 09:33] LABS: Anisocytosis SLIGHT = 6-15 cells (100X) (0-5/hpf); Band 9 % (5-11); Eosinophils 2 % (0-10); Hemoglobin 8.1 g/dL (14.0-18.0); Lymphocytes 26 % (21-51); MDiff Complete? YES; Mean Corpuscular HGB CONC 32.6 g/dL (32.0-36.0); Mean Corpuscular Hemoglobin 28.2 pg (27.0-31.0); Mean Corpuscular Volume 86.5 fL (78.0-98.0); Mean Platelet Volume 10.5 fL (7.4-10.4); Metamyelocyte 2 % (0-0); Monocytes 27 % (0-10); Neutrophil 30 % (42-75); PLT Morphology Comment Appears Decreased; Platelet Count 81 thou/uL (130-400); RBC Distribution Width 19.8 % (11.5-14.5); Reactive Lymphocytes 2 % (0-10); Red Blood Cell (RBC) Count 2.87 mill/uL (4.70-6.10); Tear Drops SLIGHT = 2-5 cells (100X) (0-1/hpf); White Blood Cell (WBC) Count 15.7 thou/uL (4.8-10.8)
[2018-01-21] MEDS: levETIRAcetam 500 mg/5 ml Oral Solution PO SCH ×2 (09:44→22:00)
[2018-01-21] MEDS: Metoprolol Tartrate 25 MG TAB PO SCH ×2 (09:57→22:00)
[2018-01-21] MEDS: Potassium Chloride 20 MEQ TAB PO PRN ×2 (10:14→15:07)
[2018-01-21 13:29] LABS: Vancomycin, Trough 15.3 ug/mL
[2018-01-21 14:18] LABS: Potassium 2.9 mmol/L (3.5-5.1)
[2018-01-21] MEDS: cefTRIAXone\\ROCEPHIN 2 GM in Sodium Chloride 0.9% 100 ML IVPB SCH (18:55)
--- NOTE | 2018-01-21 19:18 | PRG ---
DATE OF SERVICE: 01/21/2018 SUBJECTIVE: Mr. Mcclellan is awake and oriented. Denies any pain, feeling better. No headaches, no nikko rtness of breath, cough. PHYSICAL EXAMINATION: VITAL SIGNS: T-max 99, blood pressure 96/59. GENERAL: Appears in no distress. HEENT: Craniectomy site appears normal with no drainage or erythema or dehiscence. Ocular movements conjugate. Symmetric air entry. HEART: S1, S2, regular rate. ABDOMEN: Soft. LABORATORY DATA: White cell count 15.7, hemoglobin 8.1, platelets 81,000. Creatinine 0.59, potassiu m 2.9. MICROBIOLOGY: Escherichia coli in one set of urine cultures greater than 100,000 CFUs. ASSESSMENT AND DISCUSSION: Chronic myelogenous leukemia, fall, subdural hematoma status post craniec vishal at the end of December and change in mental status, neutrophilia. Transitioned to Rocephin, discont inue the other antimicrobials targeting the E. coli in the urinary tract with only 4-6 wbc's.
--- NOTE | 2018-01-21 19:21 | PDOC.EVN ---
Event Note - Event Note Event Note: Asked by the RN to call the patient's daughter Aleida - called her at [phone]. Reviewed the current concerns with blood pressure on the lower side, that antibiotics changed by Dr. Haywood, and that pt was sleepy this morning but more awake and interactive later in the day. no questions or further needs at end of call.
[2018-01-21 20:31] LABS: Potassium 3.6 mmol/L (3.5-5.1)
[2018-01-22] MEDS: D5 1/2 NS w/20 mEq KCL 1,000 ML IV SCH ×3 (02:36→15:23)
[2018-01-22 05:30] LABS: Anion Gap 11 mmol/L (10-20); BUN (Urea Nitrogen) 6 mg/dL (8.4-25.7); Calc. Creatinine Clearance 89 mL/min (70-130); Calcium 8.3 mg/dL (7.8-10.44); Carbon Dioxide 23 mmol/L (23-31); Chloride 106 mmol/L (98-107); Estimated GFR-MDRD Greater than 90; Glucose 122 mg/dL (83-110); Potassium 3.5 mmol/L (3.5-5.1); Sodium 136 mmol/L (136-145)
[2018-01-22 06:21] LABS: Band 2 % (5-11); Hemoglobin 8.4 g/dL (14.0-18.0); Hypochromia SLIGHT = 6-15 cells (100X) (0-5/hpf); Lymphocytes 7 % (21-51); MDiff Complete? YES; Mean Corpuscular HGB CONC 31.8 g/dL (32.0-36.0); Mean Corpuscular Hemoglobin 27.7 pg (27.0-31.0); Mean Platelet Volume 8.9 fL (7.4-10.4); Monocytes 30 % (0-10); Neutrophil 61 % (42-75); PLT Morphology Comment Appears Decreased; Platelet Count 92 thou/uL (130-400); RBC Distribution Width 20.1 % (11.5-14.5); Red Blood Cell (RBC) Count 3.02 mill/uL (4.70-6.10); White Blood Cell (WBC) Count 16.8 thou/uL (4.8-10.8)
--- NOTE | 2018-01-22 07:54 | PRG ---
DATE OF SERVICE: 01/22/2018 Derick Francois PA-C, dictating for Erich Garza MD Mr. Mcclellan is now 15 days postoperative, having undergone a left-sided craniotomy for subdural evacuat ion. The patient had profound right-sided weakness and the subdural was related to a fall. He was r eadmitted from a assisted facility for possible sepsis and is overall improving. Our medical colleagues are closely monitoring this. The patient remains at neurologic baseline in my opinion. Cheryl archuleta has continued right upper and lower extremity weakness, although he is able to wiggle the toes and fingers and has antigravity in both arm and the leg on the right side. He has good strength in the l eft arm and leg. His expressive dysphasia continues to improve. He is now speaking in full sentence s. His incision is clean, dry, and intact and closed with amirah. I did remove these today. He di d have a CT scan a few days ago when he was readmitted that shows continued improvement of his subdur al hematoma on the left side. Our plan now would be to probably see him in the next 4-6 weeks with a repeat scan, although we will continue to monitor him closely. Clinically, he may not require any f urther imaging. He looks as though he is slowly but surely improving and will benefit greatly from r ehabilitation, especially in regard to physical therapy. Please call with any questions or changes i n patient's neurologic status.
--- NOTE | 2018-01-22 08:14 | PDOC.PN ---
- Subjective Encounter Start Date: 01/22/18 (f/u hypokalemia) Encounter Start Time: 08:12 Subjective: No overnight events. Pt c/o headache earlier but states none -: now. He is sitting up in a chair eating breakfast - Objective Resuscitation Status: Resuscitation Status FULL:Full Resuscitation Vital Signs & Weight: Vital Signs (12 hours) Temp Pulse Resp 01/22/18 07:55 97.5 F L 105 H 20 01/22/18 07:00 97.5 F L 01/22/18 04:00 98.5 F 01/22/18 00:00 98.1 F Weight Admit Weight 141 lb 1.533 oz Weight 141 lb 1.533 oz Most Recent Monitor Data Heart Rate from ECG 109 NIBP 98/57 NIBP BP-Mean 82 Respiration from ECG 23 SpO2 100 I&O: 01/21/18 01/22/18 01/23/18 06:59 06:59 06:59 Intake Total 3225 4320 300 Output Total 4385 1430 125 Balance -1160 2890 175 Result Diagrams: 01/22/18 04:25 01/22/18 04:25 EKG Reviewed by me: Yes (a fib with rates 100-110's) Phys Exam - Physical Examination Constitutional: NAD Respiratory: no wheezing, no rales, no rhonchi decreased breath sounds at the bases Cardiovascular: no significant murmur, irregular Gastrointestinal: soft, non-tender, no distention, positive bowel sounds non pitting edema of feet bilateral Deviation from normal: more awake and alert this morning Skin: no rash Dx/Plan (1) Sepsis Code(s): A41.9 - SEPSIS, UNSPECIFIED ORGANISM Status: Resolved Qualifiers: Sepsis type: sepsis due to unspecified organism Qualified Code(s): A41.9 - Sepsis, unspecified organism (2) Hypotension Status: Resolved (3) Pneumonia Code(s): J18.9 - PNEUMONIA, UNSPECIFIED ORGANISM Status: Acute (4) Subdural hematoma Code(s): S06.5X9A - TRAUM SUBDR HEM W LOC OF UNSP DURATION, INIT Status: Acute (5) Atrial fibrillation Code(s): I48.91 - UNSPECIFIED ATRIAL FIBRILLATION Status: Chronic Qualifiers: Atrial fibrillation type: unspecified Qualified Code(s): I48.91 - Unspecified atrial fibrillation (6) Diabetes type 2, controlled Code(s): E11.9 - TYPE 2 DIABETES MELLITUS WITHOUT COMPLICATIONS Status: Chronic Qualifiers: Diabetes mellitus terminal operations supervisor insulin use: unspecified skilled nursing insulin use status (7) GERD (gastroesophageal reflux disease) Code(s): K21.9 - GASTRO-ESOPHAGEAL REFLUX DISEASE WITHOUT ESOPHAGITIS Status: Chronic Qualifiers: Esophagitis presence: esophagitis presence not specified Qualified Code(s) : K21.9 - Gastro-esophageal reflux disease without esophagitis (8) Pulmonary hypertension Code(s): I27.20 - PULMONARY HYPERTENSION, UNSPECIFIED Status: Chronic - Plan * * Hypotension resolved - IVF rate lowered and anticipate this can be weaned or stopped today as pt taking PO * Potassium replaced yesterday - now low-normal, will add some scheduled potassium daliy * Mental status improved today - continue pt/ot/speech * continue a fib rate controlling meds if bp can tolerate * Appreciate ID consult - abx changed yesterday, and Oncology consult * * dvt prophy - scd's * gi prophy - famotidine * code status full * * anticipate pt can be moved to stroke floor later today, as he has been stable over past 24 hours.
[2018-01-22] MEDS: Potassium Chloride 20 MEQ TAB PO SCH (08:45)
[2018-01-22] MEDS: Famotidine 20 MG TAB PO SCH ×2 (08:45→21:05)
[2018-01-22] MEDS: Metoprolol Tartrate 25 MG TAB PO SCH ×2 (08:46→21:06)
--- NOTE | 2018-01-22 09:25 | PRG ---
DATE OF SERVICE: 01/22/2018 SUBJECTIVE: The patient remains in the CCU. He is much more awake than yesterday. He did not requi re the institution of vasopressors yesterday and his heart rate seems to be under better control. OBJECTIVE: VITAL SIGNS: On exam, his temperature is 98.5, pulse 58, blood pressure 102/59. A 24-hour intake 43 20, output 1430. HEENT: Unremarkable. NECK: Without adenopathy or JVD. CARDIAC: S1, S2 irregularly irregular without murmur. LUNGS: Clear. ABDOMEN: Soft, nontender, nondistended. EXTREMITIES: No clubbing, cyanosis, or edema. LABORATORY DATA: Sodium 136, potassium 3.5, chloride 106, CO2 23, BUN 6, creatinine 0.6, glucose 122 . White blood cell count 16.8, hematocrit 26.2, platelet count 92. ASSESSMENT: 1. Urosepsis from Escherichia coli 2. Atrial fibrillation with controlled ventricular response. 3. Chronic myelogenous leukemia. 4. Encephalopathy, which seems to be improved. 5. Recent intracranial hemorrhage. PLAN: 1. Try to get the patient up into a chair today. 2. Increase activity as tolerated. 3. We would cut back on his IV fluids as he has been fluid overloaded during this admission. 4. Low dose metoprolol for control of heart rate, but watch blood pressure carefully. 5. Antibiotics per Infectious Disease.
[2018-01-22] MEDS: levETIRAcetam 500 mg/5 ml Oral Solution PO SCH ×2 (09:30→21:06)
[2018-01-22] MEDS: cefTRIAXone\\ROCEPHIN 2 GM in Sodium Chloride 0.9% 100 ML IVPB SCH (18:28)
[2018-01-23 05:51] LABS: Anion Gap 9 mmol/L (10-20); BUN (Urea Nitrogen) 4 mg/dL (8.4-25.7); Calc. Creatinine Clearance 90 mL/min (70-130); Calcium 8.7 mg/dL (7.8-10.44); Carbon Dioxide 24 mmol/L (23-31); Chloride 105 mmol/L (98-107); Estimated GFR-MDRD Greater than 90; Glucose 111 mg/dL (83-110); Potassium 3.9 mmol/L (3.5-5.1); Sodium 134 mmol/L (136-145)
[2018-01-23 06:32] LABS: Band 5 % (5-11); Eosinophils 2 % (0-10); Lymphocytes 19 % (21-51); MDiff Complete? YES; Mean Corpuscular HGB CONC 31.9 g/dL (32.0-36.0); Mean Corpuscular Hemoglobin 27.6 pg (27.0-31.0); Mean Corpuscular Volume 86.7 fL (78.0-98.0); Mean Platelet Volume 9.5 fL (7.4-10.4); Metamyelocyte 1 % (0-0); Monocytes 25 % (0-10); Neutrophil 48 % (42-75); PLT Morphology Comment Appears Decreased; Platelet Count 103 thou/uL (130-400); RBC Distribution Width 20.4 % (11.5-14.5); Red Blood Cell (RBC) Count 3.24 mill/uL (4.70-6.10); White Blood Cell (WBC) Count 18.4 thou/uL (4.8-10.8)
--- NOTE | 2018-01-23 08:36 | PRG ---
DATE OF SERVICE: 01/23/2018 He was moved out of the ICU yesterday. He has no acute complaints today. PHYSICAL EXAMINATION: VITAL SIGNS: His temperature is 97.4, pulse 91, respiration 24, sat 98% on room air, blood pressure 112/69. HEENT: Unremarkable. NECK: No JVD. CHEST: Clear, without wheezing or rhonchi. CARDIAC: S1 and S2 regular. ABDOMEN: Soft. EXTREMITIES: No edema. LABORATORY DATA: White blood cell count 18.4, hematocrit 28.1, platelet count 103. Sodium 134, pota ssium 3.9, chloride 105, CO2 24, BUN 4, creatinine 0.5, glucose 111. ASSESSMENT: 1. Improved sepsis syndrome - source is thought to be urosepsis. 2. Atrial fibrillation with controlled ventricular response. 3. Chronic myelogenous leukemia. 4. Encephalopathy. 5. Recent intracranial hemorrhage. PLAN: The patient appears to be near his baseline. He will continue on antibiotics for whatever dur ation is needed by Dr. Haywood. I will leave IV fluid management up to the hospitalist group. There a re no further pulmonary concerns. I will sign off. Please recall if further assistance needed.
[2018-01-23] MEDS: Potassium Chloride 20 MEQ TAB PO SCH (08:58)
[2018-01-23] MEDS: Metoprolol Tartrate 25 MG TAB PO SCH ×2 (08:59→20:39)
[2018-01-23] MEDS: levETIRAcetam 500 mg/5 ml Oral Solution PO SCH ×2 (08:59→20:40)
[2018-01-23] MEDS: Famotidine 20 MG TAB PO SCH ×2 (08:59→20:39)
[2018-01-23] MEDS: D5 1/2 NS w/20 mEq KCL 1,000 ML IV SCH (13:31)
[2018-01-23] MEDS: cefTRIAXone\\ROCEPHIN 2 GM in Sodium Chloride 0.9% 100 ML IVPB SCH (17:49)
--- NOTE | 2018-01-23 22:13 | PDOC.PN ---
- Subjective Encounter Start Date: 01/24/18 Encounter Start Time: 12:59 Subjective: nsg notes rev, stephania ovn, no new c/o -: states he does not like th enew room bc the TV is uncomfortable position -: for him to watch - Objective Resuscitation Status: Resuscitation Status FULL:Full Resuscitation Vital Signs & Weight: Vital Signs (12 hours) Temp Pulse Resp BP Pulse Ox 01/23/18 20:00 97.6 F 92 19 113/74 94 L 01/23/18 16:28 97.5 F L 91 20 108/70 96 01/23/18 12:00 97.6 F 80 16 103/71 96 Weight Admit Weight 141 lb 1.533 oz Weight 141 lb 1.533 oz Most Recent Monitor Data Heart Rate from ECG 88 NIBP 102/58 NIBP BP-Mean 70 Respiration from ECG 22 SpO2 100 I&O: 01/22/18 01/23/18 01/24/18 06:59 06:59 06:59 Intake Total 4320 2813 400 Output Total 1430 2755 1775 Balance 2890 58 -1375 Result Diagrams: 01/24/18 04:55 01/24/18 04:55 Phys Exam - Physical Examination Constitutional: NAD lying in hospital bed HEENT: moist MMs Respiratory: no wheezing, no rales, no rhonchi, clear to auscultation bilateral Cardiovascular: RRR, no significant murmur, no rub Gastrointestinal: soft, non-tender, positive bowel sounds Musculoskeletal: no edema Dx/Plan - Plan (1) Sepsis Code(s): A41.9 - SEPSIS, UNSPECIFIED ORGANISM Status: Resolved Qualifiers: Sepsis type: sepsis due to unspecified organism Qualified Code(s): A41.9 - Sepsis, unspecified organism (2) Hypotension Status: Resolved (3) Pneumonia Code(s): J18.9 - PNEUMONIA, UNSPECIFIED ORGANISM Status: Acute (4) Subdural hematoma Code(s): S06.5X9A - TRAUM SUBDR HEM W LOC OF UNSP DURATION, INIT Status: Acute (5) Atrial fibrillation Code(s): I48.91 - UNSPECIFIED ATRIAL FIBRILLATION Status: Chronic Qualifiers: Atrial fibrillation type: unspecified Qualified Code(s): I48.91 - Unspecified atrial fibrillation (6) Diabetes type 2, controlled Code(s): E11.9 - TYPE 2 DIABETES MELLITUS WITHOUT COMPLICATIONS Status: Chronic Qualifiers: Diabetes mellitus terminal clerk insulin use: unspecified fpc insulin use status (7) GERD (gastroesophageal reflux disease) Code(s): K21.9 - GASTRO-ESOPHAGEAL REFLUX DISEASE WITHOUT ESOPHAGITIS Status: Chronic Qualifiers: Esophagitis presence: esophagitis presence not specified Qualified Code(s) : K21.9 - Gastro-esophageal reflux disease without esophagitis (8) Pulmonary hypertension Code(s): I27.20 - PULMONARY HYPERTENSION, UNSPECIFIED Status: Chronic - Plan * * Hypotension resolved - IVF discontinued, continue to monitor VSS and I/O * Hypokalemia - on scheduled potassium, improved stability * Mental status improved today - continue pt/ot/speech * continue a fib rate controlling meds if bp can tolerate * Appreciate ID consult - abx changed yesterday, and Oncology consult * * dvt prophy - scd's * gi prophy - famotidine * code status full * * Was planned for D/C today Review of Systems - Medications/Allergies Allergies/Adverse Reactions: Allergies Allergy/AdvReac Type Severity Reaction Status Date / Time No Known Drug Allergies Allergy Verified 01/18/18 21:19 Medications: Current Medications Acetaminophen (Tylenol) 650 mg PO Q4H PRN PRN Reason: Headache/Fever or Pain Last Admin: 01/22/18 08:45 Dose: 650 mg Diltiazem HCl (Cardizem Cd) 180 mg PO DAILY [facility] Last Admin: 01/24/18 09:01 Dose: 180 mg Famotidine (Pepcid) 20 mg PO BID [facility] Last Admin: 01/24/18 09:01 Dose: 20 mg Ceftriaxone Sodium 2 gm/ (Sodium Chloride) 100 mls @ 200 mls/hr IVPB Q24HR [facility] Last Admin: 01/23/18 17:49 Dose: 100 mls Levetiracetam (Keppra Oral Solution) 250 mg PO Q12HR [facility] Last Admin: 01/24/18 09:01 Dose: 250 mg Metoprolol Tartrate (Lopressor) 12.5 mg PO BID [facility] Last Admin: 01/24/18 09:01 Dose: 12.5 mg
[2018-01-24 06:17] LABS: Anion Gap 12 mmol/L (10-20); BUN (Urea Nitrogen) 5 mg/dL (8.4-25.7); Calc. Creatinine Clearance 92 mL/min (70-130); Calcium 9.2 mg/dL (7.8-10.44); Carbon Dioxide 25 mmol/L (23-31); Chloride 104 mmol/L (98-107); Estimated GFR-MDRD Greater than 90; Glucose 100 mg/dL (83-110); Potassium 3.5 mmol/L (3.5-5.1); Sodium 137 mmol/L (136-145)
[2018-01-24 06:42] LABS: Band 13 % (5-11); Eosinophils 2 % (0-10); Hemoglobin 9.4 g/dL (14.0-18.0); Lymphocytes 11 % (21-51); MDiff Complete? YES; Mean Corpuscular HGB CONC 32.4 g/dL (32.0-36.0); Mean Corpuscular Volume 86.7 fL (78.0-98.0); Mean Platelet Volume 8.3 fL (7.4-10.4); Metamyelocyte 2 % (0-0); Monocytes 35 % (0-10); Myelocyte 2 % (0-0); Neutrophil 35 % (42-75); Nucleated RBC 1 % (0); PLT Morphology Comment Appears Decreased; Platelet Count 95 thou/uL (130-400); Red Blood Cell (RBC) Count 3.36 mill/uL (4.70-6.10); White Blood Cell (WBC) Count 17.8 thou/uL (4.8-10.8)
[2018-01-24] MEDS: Metoprolol Tartrate 25 MG TAB PO SCH (09:01)
[2018-01-24] MEDS: levETIRAcetam 500 mg/5 ml Oral Solution PO SCH (09:01)
[2018-01-24] MEDS: Famotidine 20 MG TAB PO SCH (09:01)
[2018-01-24 11:31] VITALS: TEMP 97.3
--- NOTE | 2018-01-24 13:28 | DIS ---
DISCHARGE DIAGNOSES: 1. Subdural hematoma, stable. 2. Chronic myelogenous leukemia, stable. 3. Escherichia coli urinary tract infection, on Rocephin. 4. Sepsis, resolved. BRIEF SUMMARY OF HOSPITAL COURSE: This is an 82-year-old male who presented with a chief complaint o f altered mental status. For reference, the patient had an immediately adjacent previous hospitaliza tion which was due to a traumatic subdural hematoma status post left frontal craniotomy. At the time of discharge it is felt that the patient's altered mental status during this hospitalizat ion is likely secondary to metabolic encephalopathy in the setting of sepsis with a causative organis m of E. coli in the urine. The patient's mentation has significantly improved as has his hypotension on admission with the utilization of a sepsis pathway. The patient has received IV fluids, started on ceftriaxone, which has been changed from an IV to and an IM dose at this point in time. The patie nt has been seen by the multilith operator, neurosurgeon, and Infectious Disease physician during this hospi talization. At the time of discharge, the patient will have 8 more days of ceftriaxone, 2 grams IM t o complete. Patient's vital signs are currently stable. The patient's neurological status had been grossly stable during this hospitalization and he has been able to [facility]. The patient has a known history of chronic myelogenous leukemia and he has been working with Oncology with outpatient chemotherapy. 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 The remainder of the patient's chronic medical issues were stable during this hospitalization. CONSULTATIONS: 1. Brush Stainer, Dr. Shabazz. 2. Infectious Disease, Dr. Haywood. 3. Neurosurgery. MEDICATION RECONCILIATION: Please see the EMR for full details. Grossly, the patient will be contin uing on his home regimen with notable addition of ceftriaxone to complete a course of antibiotics. PATIENT'S CONDITION AT DISCHARGE: At the time of discharge, the patient's vital signs are stable. T he patient is hemodynamically stable, tolerating his baseline diet and able to participate with physi tami therapy. DISCHARGE INSTRUCTIONS: The patient is asked to follow up closely with his outpatient team including his primary care doctor, Oncology and Neurosurgery. Greater than 30 minutes spent coordinating discharge for the patient.
[2018-01-24 15:33] VITALS: BP 111/64
== END 2018-01-24 16:31 | disposition swing bed (61) | DRG 871 ==
LOC: ERS 15:17 → CCU 20:49 → 2SE 01-22 16:59
PROVIDERS: ADMIT Internal Medicine; ATTEND Internal Medicine
DX: A41.9 Sepsis, unspecified organism (principal); G93.40 Encephalopathy, unspecified; N39.0 Urinary tract infection, site not specified; C92.10 Chronic myeloid leukemia, BCR/ABL-positive, not having achieved remission; I27.0 Primary pulmonary hypertension; N40.0 Benign prostatic hyperplasia without lower urinary tract symptoms; Z87.820 Personal history of traumatic brain injury; B96.20 Unspecified Escherichia coli [E. coli] as the cause of diseases classified elsewhere; I48.2 Chronic atrial fibrillation; E11.9 Type 2 diabetes mellitus without complications; K21.9 Gastro-esophageal reflux disease without esophagitis; E87.6 Hypokalemia
CPT/HCPCS: 36415; 36416; 71275; 80048; 80202; 82533; 83735; 85007; 85025; 85027; 96361; 96365; 96366; A4216; G8978-GP-CM; G8979-GP-CK; G8987-GO-CL; G8988-GO-CK; J0696; J1940; J1956; J2543; J3370; J3475; J3480; J3486; J7050